=== PATIENT | female | born 1940 | race Caucasian/White ===

== ENCOUNTER 2025-05-24 10:09 | Inpatient (IN) | payer MEDICARE, OTHER, SELFPAY ==
[2025-05-22 14:05] VITALS: BP 136/100
[2025-05-22 15:00] VITALS: BP 130/87
--- NOTE | 2025-05-22 15:48 | ED.GENMED ---
History of Present Illness
General
Chief Complaint: Vascular Symptoms
Source: patient
Exam Limitations: none
Time Seen by Provider: 05/22/25 15:33
Nursing documentation reviewed up to this point in time: agreed with
History of Present Illness
History of Present Illness:
84-year-old female with a past medical history of multiple sclerosis (wheelchair-bound at baseline), hypertension, glaucoma who presents to the emergency department via EMS for evaluation of right lower extremity pain. Patient lives at [facility] in [place]; her son-in-law is a straight cutter at [facility] and when they referred her to the emergency room they requested transport to [facility] but she was erroneously taken to [facility]. I spoke with the staff at [facility]
and she had cursory evaluation (essentially physical exam and Doppler pulses were checked) there and was transported over to [facility] at patient and family request.
She presents today to the emergency room for evaluation of right lower extremity pain. History obtained from patient and EMS but also from her daughter as well as her son in law. Of note she does have chronic pain in her right knee as well as in
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 She recently has been dealing with muscle spasms and contractures in the right leg. There was a plan to do physical therapy to help
with this. She apparently started to develop some shallow ulcerations in the lower leg on the right and was having increasing pain over the past few days. Today was complaining of severe pain in the leg and it sounds like physician at her living
facility had difficulty finding a palpable pulse and so she was transported to have evaluation in the emergency room. She complains of pain in the knee and down into the lower leg. She describes a deep aching pain. No clear triggering or
relieving factors noted. Associated muscle spasms as described. She denies any other complaints including fever, chills, chest pain, shortness of breath. She has not noticed swelling in the legs. Review of her medication list shows no blood
thinners.
Review of Systems
Review of Systems
All Other Systems: ROS reviewed and negative except as documented in HPI and ROS
Constitutional: Denies fever
Respiratory: Denies trouble breathing
Cardiac: Denies chest pain
ABD/GI: Denies abdominal pain
: Denies flank pain
Musculoskeletal: Reports joint pain, muscle pain and muscle stiffness
Skin: Reports other (Wounds)
Neurological: Denies headache
Phy Exam
Physical Exam
Physical Exam:
General: Awake, alert, oriented x3; no acute distress
Head: Normocephalic, atraumatic
Eyes: Conjunctiva normal
Throat: Airway intact, handling secretions
Neck: Trachea midline
Lungs: Breathing comfortably with no distress
Heart: Regular rate
Abd: Soft, non distended, nontender
Skin: Patient has 2 shallow-based ulcerations 1 on anterior right lower leg and 1 on the calf in the right lower leg with no drainage or erythema, warmth, induration or other signs of acute infection
Extremities: No notable edema in the lower extremity specifically no edema in the right lower extremity; she does have weakly palpable pulses left lower extremity; on exam of the right lower extremity she has palpable femoral pulse, no palpable
DP/PT pulse but pulses are present by Doppler in the right lower extremity and the distal extremity is warm to the touch
Scores
Heart Failure Risk
Heart Failure Risk Score: Not Applicable
Heart Score for Chest Pain Patients
STEMI patient?: Not applicable
Withdrawal Assessment of Alcohol
Withdrawal Assessment Completed?: Not applicable
Course
Orders/Labs/Results
Orders:
Orders
05/22/25 15:47
CR Knee - Right 3 Views Urgent
Reason For Exam: right knee pain
05/22/25 15:52
US Periph Venous LOWER Ext RT Urgent
Comment:
Reason For Exam: RLE pain
US Vasc Ltd W JAMEEL Urgent
Reason For Exam: RLE pain
05/22/25 16:01
CPK [Creatine Phosphokinase] Urgent
Complete Blood Count/With Diff Urgent
Comprehensive Metabolic Panel Urgent
PTT Urgent
Prothrombin Time Urgent
05/22/25 19:00
Acetaminophen 1000MG/100Ml [Ofirmev] 1,000 mg in 100 ml IV ONCE
Acetaminophen IV Indication:: ED Narcotic Naive Pt-ONCE
Morphine Sulfate 4 mg IV NOW STA
Abnormal Lab Results
05/22/25
16:01
WBC 15.8 H 10^3/uL
(4.8-10.8)
RBC 3.68 L 10^6/uL
(4.20-5.40)
Hgb 10.8 L g/dL
(12.0-16.0)
Hct 33.4 L %
(37.0-47.0)
MCHC 32.3 L g/dL
(33.0-37.0)
Plt Count 460 H 10^3/uL
(130-400)
Abs Immat Gran (auto) 0.1 H 10^3/uL
(0-0.05)
Absolute Neuts (auto) 13.4 H 10^3/uL
(1.4-6.5)
Absolute Monos (auto) 0.9 H 10^3/uL
(0.1-0.6)
Immature Gran % 0.6 H %
(0-0.5)
Neutrophils % 85.2 H %
(42.2-75.2)
Lymphocytes % 8.2 L %
(20.5-51.1)
Chloride 110 H mmol/L
(98-107)
BUN 19 H mg/dl
(7-17)
Glucose 112 H mg/dl
(70-99)
Albumin 3.4 L g/dl
(3.5-5.0)
05/22/25 16:01
05/22/25 16:01
Vital Signs
Initial and Last Documented VS:
Initial Vital Signs
Temp Pulse Resp BP Pulse Ox
36.9 C 86 16 136/100 95
05/22/25 14:05 05/22/25 14:05 05/22/25 14:05 05/22/25 14:05 05/22/25 14:05
Last Documented Vital Signs
Temp Pulse Resp BP Pulse Ox
36.9 C 80 22 130/87 93
05/22/25 14:05 05/22/25 15:00 05/22/25 15:00 05/22/25 15:00 05/22/25 15:50
MDM/Problems Addressed
Differential Diagnosis Includes:
Claudication, DVT, arthritis, neuropathy
MDM/Problems Addressed:
84-year-old female presents for evaluation of acute on chronic pain in the right lower extremity as described above. Difficulty finding palpable pulse in the right lower extremity and worsening pain, new wounds, muscle spasms and contractures which
prompted ER referral. Vital signs and exam as above. Physical exam as above. She does not have palpable distal pulses in the right lower extremity but does have warm extremity and pulses are present by Doppler. Will plan to send labs including a
CBC and a CMP, coags, CPK. Check x-ray of the knee as she has much of her pain in the knee. Will check venous and arterial ultrasounds�discussed with vascular regarding approval for the studies. Reassess after the above.
Labs reviewed: CBC shows leukocytosis of 15.8 of unclear acute clinical significance. Mild anemia no prior for comparison. CMP no clinically significant abnormalities. CPK normal. DVT study was negative. On my independent review x-ray of the
knee shows no fracture, arthritis noted, vascular calcifications noted. Her arterial ultrasound shows moderately reduced JAMEEL with severely reduced TBI severely diseased SFA with multifocal stenosis. Case discussed with vascular surgery for
recommendations.
Case discussed with vascular�on review of imaging likely claudication could be medically managed rather than any surgical intervention planned. She is however having significant increased pain�will admit for consultation, symptom management.
Discussed with hospitalist.
Chronic conditions affecting care:
Hypertension, MS
*Radiology
Radiology exam reviewed: radiology read reviewed
*Pulse Oximetry
SaO2: 93
Oxygen Mode of Delivery: Room air
Patient hypoxic: no (93%)
*Critical Care Note
Total Time (30-74mins, 75-104mins- exclusive of procedures): Not Applicable
Data Reviewed
Review of Other/Old Records Reveals: Records ([facility] records)
Source: patient, records and ambulance crew
Patient Management
Discussion with other providers: Hospitalist (Discussed with hospitalist), Youth Specialist (Discussed with vascular surgery as well as radiologist) and Other (Discussed with staff at [facility])
Escalation/DeEscalation of care consider admission/obs:
Admission indicated
ED Attending Note
-
Portions of this chart may have been created with voice recognition software.� Occasional wrong word or��sound alike� substitutions may have occurred due to the inherent limitations of voice recognition software.
Discharge Plan
Departure
Prescriptions:
No Action
prednisone 5 mg Tablet
5 mg PO DAILY
losartan 25 mg Tablet
25 mg PO DAILY
duloxetine 40 mg Capsule,Delayed Release(Dr/Ec)
40 mg PO DAILY
latanoprost 0.005 % Drops
1 drp LEFT EYE HS
acetaminophen [Tylenol] 325 mg Tablet
650 mg PO Q4HPRN PRN (Reason: mild pain)
acetaminophen [Tylenol Extra Strength] 500 mg Tablet
1,000 mg PO HS
bisacodyl [Dulcolax (bisacodyl)] 10 mg Suppository
10 mg NM Q8HPRN PRN (Reason: constipation)
nystatin 100,000 unit/gram Cream
1 applic TOPICAL BID
lidocaine [Lidoderm] 5 % Adhesive Patch,Medicated
1 patch TOPICAL DAILY
brimonidine 0.2 % Drops
1 drp BOTH EYES BID
dorzolamide-timolol 22.3-6.8 mg/mL Drops
1 drp BOTH EYES BID
melatonin 1 mg Tablet
1 mg PO HSPRN PRN (Reason: sleep)
Santyl 250 unit/gram Ointment
1 applic TOPICAL QPM
cholecalciferol (vitamin D3) [Vitamin D3] 25 mcg (1,000 unit) Tablet
25 mcg PO DAILY
Referrals:
David Lira MD [Family Provider, Internal Medicine]
Interventions
Interventions:
*Risk Screen - Suicide Last Done: 05/22/25 14:05
*General Assessment Last Done: 05/22/25 14:05
*Neglect/Abuse Screening Last Done: 05/22/25 14:05
ED-Peripheral Vascular Assessment Last Done: 05/22/25 14:17
Discharge Date and Time
Print Language: ALBANIAN
[2025-05-22 16:09] LABS: Hematocrit 33.4 % (37.0-47.0); Hemoglobin 10.8 g/dL (12.0-16.0); Mean Corp Hgb Conc. 32.3 g/dL (33.0-37.0); Mean Corpuscular Volume 90.8 fL (81.0-99.0); Nucleated Red Blood Cells % 0 %; Platelet Count 460 10^3/uL (130-400); Red Cell Dist. Width 13.7 % (11.5-14.5)
[2025-05-22 16:17] LABS: APTT 26.5 Sec (23.4-35.0); INR 0.95; PT 13.0 Sec (11.4-14.6)
[2025-05-22 16:21] LABS: ALT (SGPT) 14 U/L (0-35); AST (SGOT) 17 U/L (14-36); Albumin 3.4 g/dl (3.5-5.0); Alkaline Phosphatase 91 U/L (38-126); Blood Urea Nitrogen 19 mg/dl (7-17); Calcium 9.4 mg/dl (8.4-10.2); Carbon Dioxide 24 mmol/L (22-30); Chloride 110 mmol/L (98-107); Glucose 112 mg/dl (70-99); Potassium 4.8 mmol/L (3.5-5.1); Sodium 137 mmol/L (135-145); Total Protein 6.4 g/dl (6.3-8.2); eGFR > 60.00
[2025-05-22] MEDS: OFIRMEV 100 IV (19:08)
--- NOTE | 2025-05-22 19:34 | HPS.HSE ---
Family Physician
-
Family Physician: David Lira
Chief Complaint
-
Right lower extremity pain
History of Present Illness
This is an 84-year-old female with past medical history significant for multiple sclerosis, hypertension, glaucoma who is wheelchair-bound at baseline presenting to the emergency department with right lower extremity pain.
Patient reports chronic pain in her right knee as well as in her right lower extremity in part due to arthritis and neuropathy in the setting of MS. She reports that she has been dealing with muscle spasms and contractures in the right leg. She
has also developed some shallow ulcerations in the lower right leg in the last few days.
She has been complaining of more severe pain in that leg and she has been evaluated by physicians at the living facility. They had difficulty finding a pulse on examination today and there were concern for claudication so patient was sent to the
emergency department for further evaluation. In the ED she had a pulse by Doppler in the right leg.
Patient herself complains of knee pain in the right knee. She feels that there is tenderness to palpation there. She has not noticed any redness or swelling. There is no insect bite.
In the emergency department she was afebrile, blood pressure 130/87 with a pulse of 80 and satting 93% on room air.
Awake and a 15.8 otherwise CBC was unremarkable. No prior CBC for comparison. Electrolytes were normal. BUN/creatinine were normal. Glucose was normal.
Ultrasound of the lower extremity was negative for DVT. X-ray was negative for any acute fracture or dislocation. She had a ankle brachial index evaluation which showed moderately reduced 0.59 in the right leg. With toe brachial index was
severely reduced at 0.18. Monophasic flow within the common femoral artery suggesting possible inflow disease. Severely diseased SFA with multifocal stenoses. There is a high-grade stenosis within the proximal SFA with velocities measuring 662 cm/s
(velocity ratio greater than 20) indicative of a greater than 75% stenosis. Additional focal stenosis appreciated within the popliteal artery. Diffusely dampened monophasic continuous flow within the SFA, popliteal, and tibial vessels.
Medical History
Past Medical History
Past Medical History: Reports HTN and Other (Multiple sclerosis, glaucoma)
Past Surgical History: Reports None
Social History
Tobacco: Non-smoker
Alcohol: None
Drug: None
Living: [facility] Living
Employment: Retired
Family History
Family History: Not pertinent
Allergies / Home Medications
Allergies reflects when Allergies were last updated in [employer].
Home Medications with original date entered in [employer]
Allergy/Medication List:
Allergies
Allergy/AdvReac Type Severity Reaction Status Date / Time
almond Allergy Unknown Verified 05/22/25 14:04
Sulfa (Sulfonamide Allergy Unknown Verified 05/22/25 14:04
Antibiotics)
Home Medications
acetaminophen 325 mg tablet (Tylenol) 650 mg PO Q4HPRN PRN mild pain 05/22/25
acetaminophen 500 mg tablet (Tylenol Extra Strength) 1,000 mg PO HS 05/22/25
bisacodyl 10 mg rectal suppository (Dulcolax (bisacodyl)) [address] Q8HPRN PRN constipation 05/22/25
brimonidine 0.2 % eye drops 1 drp BOTH EYES BID 05/22/25
cholecalciferol (vitamin D3) 25 mcg (1,000 unit) tablet (Vitamin D3) 25 mcg PO DAILY 05/22/25
collagenase clostridium histo. 250 unit/gram topical ointment (Santyl) 1 applic topical QPM right mata 05/22/25
dorzolamide 22.3 mg-timolol 6.8 mg/mL eye drops 1 drp BOTH EYES BID 05/22/25
duloxetine 40 mg capsule,delayed release 40 mg PO DAILY 05/22/25
latanoprost 0.005 % eye drops 1 drp LEFT EYE HS 05/22/25
lidocaine 5 % topical patch (Lidoderm) 1 patch topical DAILY right knee 05/22/25
losartan 25 mg tablet 25 mg PO DAILY 05/22/25
melatonin 1 mg tablet 1 mg PO HSPRN PRN sleep 05/22/25
nystatin 100,000 unit/gram topical cream 1 applic topical BID both feet 05/22/25
prednisone 5 mg tablet 5 mg PO DAILY 05/22/25
Review of Systems
-
History Source: Family
Constitutional: Reports No Symptoms
EENT: Reports No Symptoms
Respiratory: Reports No Symptoms
Cardiac: Reports No Symptoms
Abdomen/GI: Reports No Symptoms
: Reports No Symptoms
Musculoskeletal: Reports Other (Right lower extremity pain)
Skin: Reports No Symptoms
Neurological: Reports No Symptoms
Endocrine: Reports No Symptoms
Hematologic/Lymphatic: Reports No Symptoms
Psych: Reports No Symptoms
Physical Exam
Vital Signs
Vital Signs
Temp Pulse Resp BP Pulse Ox
98.4 F 80 22 130/87 93
05/22/25 14:05 05/22/25 15:00 05/22/25 15:00 05/22/25 15:00 05/22/25 15:50
Physical Exam
General: Well Developed, Well Nourished and No Apparent Distress
HEENT: NormoCephalic, Moist mucous membranes and Atraumatic
Respiratory: Clear
Cardiac: S1/S2 and Regular Rhythm; No Murmur or Rub
GI: Soft, Non Tender, Non Distended and Normal Bowel Sounds; No Organomegaly
Rectal: Deferred by Provider
Musculoskeletal: No Clubbing, No Cyanosis, No Edema and Other (, No effusion, no erythema over the right knee, there is mild tenderness to palpation, skin does seem exquisitely sensitive to touch, DP pulses by doppler in the right lower extremity,
normal palpable pulses in the left lower extremity)
Skin: No Rash
Neuro: Nonfocal/grossly intact
Psych: Calm
Laboratory Results
-
05/22/25 16:01
05/22/25 16:01
Laboratory Results
PT 13.0 Sec (11.4-14.6) 05/22/25 16:01
INR 0.95 05/22/25 16:
APTT 26.5 Sec (23.4-35.0) 05/22/25 16:01
Total Bilirubin 0.6 mg/dl (0.2-1.3) 05/22/25 16:
AST 17 U/L (14-36) 05/22/25 16:
ALT 14 U/L (0-35) 05/22/25 16:01
Alkaline Phosphatase 91 U/L (38-126) 05/22/25 16:
Data Reviewed
-
Ultrasound: Report Reviewed by me
Lab Data: Labs Reviewed by me
Old Records: Reviewed
Impression/Plan
-
IMPRESSION:
Right lower extremity pain which seems to be worse than baseline. It seems that she was brought into the emergency department today not due to the pain although that has been difficult to manage at home but due to inability to find pulses in the
right lower extremity with concern for claudication. However the pain that she is having is not consistent with claudication although vascular evaluation does show significant vascular disease that will likely need medical management. This case
was discussed with vascular surgery by ED and they had recommended no acute intervention.
PLAN:
RLE Ext/Knee pain - Suspect OA rather than claudication vs peripheral neuropathy. Despite leukocytosis (on prednisone), no evidence of joint fluid inflammatory/cellulitis
- admit to med/surg
- given morphine in Ed, will continue with acetaminophen, nsaids and low dose opioids
- topical lidocaine
- consider outpatient injection
- PT evaluation
PAD - Diagnosed PAD by TBI. Pulses are found by doppler. No ischemia on examination. Do not suspect claudication
- vascular consultation
- consider starting statin, cilostazol, asa 81
MS
- continue prednisone 5 daily
Continue home bp meds with losartan
DVT PPX - SCDs
Code status - DNR/DNI
[2025-05-22 20:36] LABS: C-Reactive Protein 26.50 mg/L (0.0-10.00)
[2025-05-22 21:27] VITALS: BP 139/61; BMI 20.2
[2025-05-22] MEDS: MOTRIN 400 MG PO (22:50)
[2025-05-22] MEDS: MYCOSTATIN CREAM 1 APPLIC TOPICAL (22:51)
[2025-05-22] MEDS: ALPHAGAN 0.2% EYE DROPS 1 DROP BOTH EYES (22:51)
[2025-05-22] MEDS: TIMOPTIC 0.5% OPHTHALMIC SOLUTION 1 DROP OPHTH (22:52)
[2025-05-22] MEDS: XALATAN OPHTHALMIC SOLUTION 1 DROP LEFT EYE (22:52)
[2025-05-22] MEDS: TRUSOPT 2% OPHTHALMIC SOLUTION 1 DROP BOTH EYES (22:53)
[2025-05-22 23:25] VITALS: BP 138/55
--- NOTE | 2025-05-23 04:55 | PTCARENOTE ---
patient arrived on stretcher, was not able to help for her transfer, complaint of pain in her lower extremities. Denies any other pain.
[2025-05-23] MEDS: TYLENOL PO ×3 (05:47→16:50)
[2025-05-23 06:26] LABS: Hematocrit 33.3 % (37.0-47.0); Hemoglobin 10.6 g/dL (12.0-16.0); Mean Corp Hgb Conc. 31.8 g/dL (33.0-37.0); Mean Corpuscular Volume 93.0 fL (81.0-99.0); Platelet Count 465 10^3/uL (130-400); Red Cell Dist. Width 13.8 % (11.5-14.5)
[2025-05-23 07:00] VITALS: BP 151/62
[2025-05-23 07:49] LABS: Blood Urea Nitrogen 21 mg/dl (7-17); Calcium 9.5 mg/dl (8.4-10.2); Carbon Dioxide 26 mmol/L (22-30); Chloride 109 mmol/L (98-107); Estimated Creatinine Clearance 35 ml/min; Glucose 90 mg/dl (70-99); HDL Cholesterol 70 mg/dl; LDL Cholesterol, Calculated 167 mg/dl; Magnesium 2.2 mg/dl (1.6-2.3); Potassium 4.3 mmol/L (3.5-5.1); Sodium 140 mmol/L (135-145); Very Low Density Lipoprotein 28 mg/dl (0-30); eGFR > 60.00
--- NOTE | 2025-05-23 09:42 | W.PN.HOSP.TC ---
Today's Communication/Plan
-
see outlined plan
Assessment / Plan
Assessment / Plan
Assessment:
RLE Ext/Knee pain
- suspect OA
- Xray: Moderate osteoarthritis in the medial compartment of the right knee. Mild to moderate flexion deformity of the knee.
- maximize Tylenol, Voltaren Gel, lidocaine patches. If requiring opiates, low doses
- consider low dose Tizanidine for spasms
- Orthopedics evaluation
- PT/OT - SNF
- may need outpatient injection
PAD
- JAMEEL: JAMEEL moderately reduced measuring 0.59. TBI severely reduced measuring 0.18. Monophasic flow within the common femoral artery suggesting possible inflow disease. Severely diseased SFA with multifocal stenoses. There is a high-grade stenosis
within the proximal SFA with velocities measuring 662 cm/s (velocity ratio greater than 20) indicative of a greater than 75% stenosis. Additional focal stenosis appreciated within the popliteal artery. Diffusely dampened monophasic continuous flow
within the SFA, popliteal, and tibial vessels.
- Vascular surgery consulted to evaluate
History of MS
- continue prednisone 5 daily
Essential HTN
- continue ARB
DVT ppx: SCDs
Code: DNR/DNI
Anticipated Discharge: > 48 hours
Subjective/Interval History
-
Date of Service: May 23, 2025
Reports RLE pain, leg in flexed position with two pillows for comfort
she reports occasional spasm/twitches near the knee, denies swelling or trauma
Objective Data
-
Labs:
Laboratory Results
05/23/25
05:49
WBC 18.2 H
Hgb 10.6 L
Hct 33.3 L
Plt Count 465 H
Sodium 140
Potassium 4.3
Chloride 109 H
Carbon Dioxide 26
BUN 21 H
Creatinine 0.9
Glucose 90
Calcium 9.5
Vital Signs:
Vital Signs
Temp Pulse Resp BP Pulse Ox
98.5 F 94 14 151/62 93
05/23/25 07:00 05/23/25 07:00 05/23/25 07:00 05/23/25 07:00 05/23/25 07:00
I&O
05/22/25 05/23/25 05/24/25
06:59 06:59 06:59
Output Total 100 / 100
Balance -100 / -100
Physical Exam
-
General: No Apparent Distress
HEENT: Normocephalic and Atraumatic
Respiratory: Clear to Auscultation; Negative Wheezes
Cardiac: Regular Rhythm and S1/S2
GI: Soft
Musculoskeletal: Other (No effusion, no erythema over the right knee, there is mild tenderness to palpation, skin does seem exquisitely sensitive to touch, DP pulses by doppler in the right lower extremity, normal palpable pulses in the left lower
extremity)
Neuro: AO x 3
Psych: Calm
Data Reviewed
-
Total Time Spent with Patient (in minutes): 45
Labs: Labs Reviewed by me
[2025-05-23] MEDS: LIDOCAINE 4% PATCH 1 PATCH TOPICAL (10:01)
[2025-05-23] MEDS: COZAAR 25 MG PO (10:01)
[2025-05-23] MEDS: VITAMIN D3 (cholecalciferol) 25 MCG PO (10:01)
[2025-05-23] MEDS: TYLENOL 650 MG PO ×2 (10:01→20:26)
[2025-05-23] MEDS: CYMBALTA DELAYED RELEASE 40 MG PO (10:02)
[2025-05-23] MEDS: DELTASONE 5 MG PO (10:02)
[2025-05-23] MEDS: MYCOSTATIN CREAM 1 APPLIC TOPICAL ×2 (10:03→20:25)
[2025-05-23] MEDS: ALPHAGAN 0.2% EYE DROPS 1 DROP BOTH EYES ×2 (10:04)
[2025-05-23] MEDS: TRUSOPT 2% OPHTHALMIC SOLUTION 1 DROP BOTH EYES ×2 (10:04→20:26)
[2025-05-23] MEDS: TIMOPTIC 0.5% OPHTHALMIC SOLUTION 1 DROP OPHTH ×2 (10:06→20:26)
--- NOTE | 2025-05-23 11:01 | CON.VAS ---
Addendum entered and electronically signed by Manuel Fish III, MD 05/25/25 20:18:
This patient was seen and examined in collaboration with SHARON Juan. I agree with the history and physical exam as well as the assessment and plan. I have the following additions:
84-year-old female with multiple medical comorbidities
Chronic right knee contracture
Right lateral heel ulcer with gangrene
Left heel ulcer
Arterial studies personally reviewed and are abnormal
CT angiogram personally reviewed
Recommending lower extremity arteriogram with possible endovascular intervention. Will discuss in more detail with family so that we can make a definitive plan. Continue antibiotics for infection. Monitor creatinine.
Signed:
Manuel Fish III, MD
Vascular Surgery
[facility]
Original Note:
Consultation
Consultation Request
Date/Time Consultation Performed: 05/23/2025 0800
Requesting Provider: Hospitalist
Performing Provider: Allison Valencia, EDM OPERATOR-C for Dr. Melendrez
Reason for Consultation: Bilateral heel wounds
Medical History
-
Chief Complaint: Bilateral heel wounds
History of Present Illness:
This is an 84-year-old female with significant past medical history of multiple sclerosis and glaucoma who presented to [facility] on 05/22/2025 with worsening bilateral lower extremity heel wounds and right lower extremity pain prompting
admission. Patient endorses wheelchair-bound status for at least roughly 2 years with worsening right knee and hip on right side contracture. Denies known rest pain or claudication. Patient is unaware how long the wounds have been present but
suspects at least a couple weeks. Patient endorses that her right knee is most painful at this time. Arterial duplex was obtained demonstrating TBI at 0.18 and high-grade SFA stenosis with monophasic flow.
Past Medical History
Past Medical History: Other (Multiple sclerosis and glaucoma)
Past Surgical History: None
Social History
Tobacco: Non-Smoker
Alcohol: None
Drug: None
Allergies / Home Medications
Allergy/AdvReac Type Severity Reaction Status Date / Time
almond Allergy Unknown Verified 05/22/25 14:04
Sulfa (Sulfonamide Allergy Unknown Verified 05/22/25 14:04
Antibiotics)
�Medication �Instructions �Recorded �Confirmed �Type
acetaminophen 325 mg tablet 650 mg PO Q4HPRN PRN mild pain 05/22/25 05/22/25 History
(Tylenol)
acetaminophen 500 mg tablet 1,000 mg PO HS 05/22/25 05/22/25 History
(Tylenol Extra Strength)
bisacodyl 10 mg rectal suppository 10 mg OK Q8HPRN PRN constipation 05/22/25 05/22/25 History
(Dulcolax (bisacodyl))
brimonidine 0.2 % eye drops 1 drp BOTH EYES BID 05/22/25 05/22/25 History
cholecalciferol (vitamin D3) 25 25 mcg PO DAILY 05/22/25 05/22/25 History
mcg (1,000 unit) tablet (Vitamin
D3)
collagenase clostridium histo. 250 1 applic topical QPM right mata 05/22/25 05/22/25 History
unit/gram topical ointment (Santyl)
dorzolamide 22.3 mg-timolol 6.8 1 drp BOTH EYES BID 05/22/25 05/22/25 History
mg/mL eye drops
duloxetine 40 mg capsule,delayed 40 mg PO DAILY 05/22/25 05/22/25 History
release
latanoprost 0.005 % eye drops 1 drp LEFT EYE HS 05/22/25 05/22/25 History
lidocaine 5 % topical patch 1 patch topical DAILY right knee 05/22/25 05/22/25 History
(Lidoderm)
losartan 25 mg tablet 25 mg PO DAILY 05/22/25 05/22/25 History
melatonin 1 mg tablet 1 mg PO HSPRN PRN sleep 05/22/25 05/22/25 History
nystatin 100,000 unit/gram topical 1 applic topical BID both feet 05/22/25 05/22/25 History
cream
prednisone 5 mg tablet 5 mg PO DAILY 05/22/25 05/22/25 History
Review of Systems
-
History Source: Patient
Constitutional: Reports No Symptoms
EENT: Reports No Symptoms
Respiratory: Reports No Symptoms
Cardiac: Reports No Symptoms
Abdomen/GI: Reports No Symptoms
: Reports No Symptoms
Musculoskeletal: Reports Muscle Pain (Right lower extremity knee pain and muscle spasms with light contraction)
Skin: Reports Other (Bilateral heel wounds)
Neurological: Reports No Symptoms
Physical Exam
Vital Signs
Temp Pulse Resp BP Pulse Ox
98.5 F 94 14 151/62 93
05/23/25 07:00 05/23/25 07:00 05/23/25 07:00 05/23/25 07:00 05/23/25 07:00
Lab Results
05/23/25 05:49
05/23/25 05:49
Physical Exam
General: No Apparent Distress
HEENT: Normocephalic and Atraumatic
Respiratory: Non Labored Respirations
Cardiac: Negative JVD
GI: Soft, Non Tender and Non Distended
Musculoskeletal: No Edema and Other (Patient with extensive hip and knee contracture on right side, currently in pain limiting positioning attempts or manipulation)
Skin: Other (Bilateral heel wounds, and superficial mata abrasion at right leg)
Neuro: Awake and Alert
Pulses: Left Femoral: +2 (Right femoral pulse palpable but weak, unable to palpate bilateral lower extremity DP or PT)
Assessment / Plan
-
Assessment: 84-year-old female with bilateral heel wounds, right worse than left, arterial duplex suggestive of peripheral arterial disease
Plan:
Patient will possibly benefit from right lower angiogram or could alternatively consider CT angio aorta with runoff for full evaluation of arterial disease. However, patient has challenging right hip and knee contracture currently with increased
pain and unclear if can manipulate for adequate CT angio aorta scan or angiogram. Recommend increased pain management regimen in an effort to see if patient can be positioned for angiogram or CT aorta with runoff. Will make patient n.p.o. Sunday
evening in case eligible candidate for angiogram, tentative plan for right lower extremity angiogram Sunday versus CT aorta angio with runoff given concern for inflow disease.
Plan relayed to hospitalist and family
Plan reviewed with on-call physician Dr. Melendrez
[2025-05-23] MEDS: DICLOFENAC 1% TOPICAL GEL 1 GRAM TOPICAL (12:15)
--- NOTE | 2025-05-23 13:05 | CM ---
senior case manager reviewed patient's chart and patient was admitted under observation, MARK letter provided to patient, patient reports that she lives at [facility], patient states she is mainly bedbound at nursing, does not remember
the last time she was out of bed, case management assistant will reach out to nursing at [facility] to check on activity level prior to admission.
PCP: David Lira
Pharmacy: [facility].
[2025-05-23 15:00] VITALS: BP 123/60
[2025-05-23] MEDS: DICLOFENAC 1% TOPICAL GEL 100 GRAM TOPICAL ×2 (18:26→20:27)
[2025-05-23] MEDS: SANTYL OINTMENT 1 APPLIC TOPICAL (18:27)
[2025-05-23] MEDS: REMOVE LIDOCAINE PATCH REMOVE (20:21)
[2025-05-23] MEDS: XALATAN OPHTHALMIC SOLUTION 1 DROP LEFT EYE (20:27)
[2025-05-23 23:30] VITALS: BP 119/46
[2025-05-24] MEDS: TYLENOL PO ×2 (00:40→04:23)
[2025-05-24 06:36] LABS: Hematocrit 30.9 % (37.0-47.0); Hemoglobin 10.2 g/dL (12.0-16.0); Mean Corp Hgb Conc. 33.0 g/dL (33.0-37.0); Mean Corpuscular Volume 90.4 fL (81.0-99.0); Platelet Count 399 10^3/uL (130-400); Red Cell Dist. Width 14.0 % (11.5-14.5)
[2025-05-24 06:55] LABS: Blood Urea Nitrogen 29 mg/dl (7-17); Calcium 9.1 mg/dl (8.4-10.2); Carbon Dioxide 21 mmol/L (22-30); Chloride 102 mmol/L (98-107); Estimated Creatinine Clearance 29 ml/min; Glucose 89 mg/dl (70-99); Potassium 4.4 mmol/L (3.5-5.1); Sodium 133 mmol/L (135-145); eGFR 48.94
[2025-05-24 07:00] VITALS: BP 112/45
[2025-05-24] MEDS: CYMBALTA DELAYED RELEASE 40 MG PO (09:54)
[2025-05-24] MEDS: LIDOCAINE 4% PATCH 1 PATCH TOPICAL (09:54)
[2025-05-24] MEDS: TRUSOPT 2% OPHTHALMIC SOLUTION 1 DROP BOTH EYES ×2 (09:55→23:29)
[2025-05-24] MEDS: TYLENOL 650 MG PO ×4 (09:55→22:23)
[2025-05-24] MEDS: ALPHAGAN 0.2% EYE DROPS 1 DROP BOTH EYES ×2 (09:55→23:29)
[2025-05-24] MEDS: DELTASONE 5 MG PO (09:55)
[2025-05-24] MEDS: COZAAR 25 MG PO (09:55)
[2025-05-24] MEDS: MYCOSTATIN CREAM 1 APPLIC TOPICAL ×2 (09:56→23:41)
[2025-05-24] MEDS: TIMOPTIC 0.5% OPHTHALMIC SOLUTION 1 DROP OPHTH ×2 (09:56→23:29)
[2025-05-24] MEDS: DICLOFENAC 1% TOPICAL GEL 1 GRAM TOPICAL ×3 (09:56→16:10)
[2025-05-24] MEDS: VITAMIN D3 (cholecalciferol) 25 MCG PO (09:57)
--- NOTE | 2025-05-24 09:59 | W.PN.HOSP.TC ---
Addendum entered and electronically signed by Jennie Holley MD 05/24/25 10:08:
Leukocytosis, rising
- despite being afebrile (on steroids) will panculture (UA, Bcx) and check CXR
Original Note:
Today's Communication/Plan
-
CT-A today
Assessment / Plan
Assessment / Plan
Assessment:
RLE Ext/Knee pain
- suspect OA
- Xray: Moderate osteoarthritis in the medial compartment of the right knee. Mild to moderate flexion deformity of the knee.
- maximize Tylenol, Voltaren Gel, lidocaine patches. If requiring opiates, low doses
- consider low dose Tizanidine for spasms
- Orthopedics evaluated; s/p steroid injection. Feeling improved
- PT/OT as able, may need SNF
PAD
- JAMEEL: JAMEEL moderately reduced measuring 0.59. TBI severely reduced measuring 0.18. Monophasic flow within the common femoral artery suggesting possible inflow disease. Severely diseased SFA with multifocal stenoses. There is a high-grade stenosis
within the proximal SFA with velocities measuring 662 cm/s (velocity ratio greater than 20) indicative of a greater than 75% stenosis. Additional focal stenosis appreciated within the popliteal artery. Diffusely dampened monophasic continuous flow
within the SFA, popliteal, and tibial vessels.
- Vascular following, CT-A pending
History of MS
- continue prednisone 5 daily
Essential HTN
- continue ARB
DVT ppx: SCDs
Code: DNR/DNI
Anticipated Discharge: > 48 hours
Subjective/Interval History
-
Date of Service: May 24, 2025
reports improvement in R knee pain after steroid injection
WBC 33 but no fevers, no focal infectious symptoms
for CT-A today
Objective Data
-
Labs:
Laboratory Results
05/24/25
05:24
WBC 33.5 H
Hgb 10.2 L
Hct 30.9 L
Plt Count 399
Sodium 133 L
Potassium 4.4
Chloride 102
Carbon Dioxide 21 L
BUN 29 H
Creatinine 1.1 H
Glucose 89
Calcium 9.1
Vital Signs:
Vital Signs
Temp Pulse Resp BP Pulse Ox
98.4 F 62 20 112/45 97
05/24/25 07:00 05/24/25 07:00 05/24/25 07:00 05/24/25 07:00 05/24/25 07:00
I&O
05/23/25 05/24/25 05/25/25
06:59 06:59 06:59
Output Total 100 / 100
Balance -100 / -100
Physical Exam
-
General: No Apparent Distress
HEENT: Normocephalic and Atraumatic
Respiratory: Negative Wheezes
Cardiac: Regular Rhythm and S1/S2
GI: Soft and Nontender
Genito-urinary: No Costovertebral Tender
Musculoskeletal: Other (contracted RLE/knee)
Neuro: AO x 3
Hematologic / Lymphatic: No Lymphadenopathy
Psych: Calm
Data Reviewed
-
Total Time Spent with Patient (in minutes): 41
Labs: Labs Reviewed by me
[2025-05-24 15:00] VITALS: BP 116/52
[2025-05-24] MEDS: SANTYL OINTMENT 1 APPLIC TOPICAL (16:12)
--- NOTE | 2025-05-24 21:35 | W.PN.UPDATE ---
Update Note
Progress Note Update
Abdomen CT result shows
1. SEVERE ACUTE CYSTITIS with a large amount of perivesical inflammation.
2. ACUTE RIGHT PYELONEPHRITIS.
3. Bilateral ascending urinary tract infection. Severe distention of the right ureter and moderate distention of the left ureter. Moderate distention of the right intrarenal collecting system and mild distention of the left intrarenal collecting
system.
4. Severely distended gallbladder containing cholelithiasis.
5. Mild hepatic cirrhosis.
6. Previous OMID-BSO.
7. Small bilateral subpleural lower lobe airspace consolidations (probably atelectasis).
8. Small central intraluminal filling defect in the right lower lobe pulmonary artery (possibly an ACUTE PULMONARY EMBOLUS).
ABDOMINAL AORTA:
1. Severe calcific atherosclerotic plaque in the abdominal aorta.
2. Greater than 70% diameter stenosis in the proximal celiac artery.
RIGHT LOWER EXTREMITY:
1. Severe atherosclerotic plaque throughout the right lower extremity.
2. Severe stenoses (greater than 70% diameter) in the proximal, mid, and distal right superficial femoral artery.
3. Severe stenosis (greater than 70% diameter) in the popliteal artery.
4. Severe stenoses (greater than 70% diameter) in the posterior tibial artery.
5. Three-vessel runoff to the level of the right foot.
LEFT LOWER EXTREMITY:
1. Severe atherosclerotic plaque throughout the left lower extremity.
2. 50-70% diameter stenoses in the left superficial femoral and popliteal arteries.
3. Severe calcific atherosclerotic plaque in the infrapopliteal arteries without evidence for arterial occlusion.
4. Three-vessel runoff to the level of the left foot.
Recommendation received by Attending Physician (Dr. Holley)
- Heparin drip
-Cefepime after UA/C&S collected.
-Urology consult was placed/urology recreation attendant contated and updated.
[2025-05-24] MEDS: PHATP 1 UNIT PO (22:30)
[2025-05-24 22:34] LABS: Hematocrit 31.6 % (37.0-47.0); Hemoglobin 10.5 g/dL (12.0-16.0); Mean Corp Hgb Conc. 33.2 g/dL (33.0-37.0); Mean Corpuscular Volume 89.5 fL (81.0-99.0); Platelet Count 384 10^3/uL (130-400); Red Cell Dist. Width 14.1 % (11.5-14.5)
[2025-05-24] MEDS: HEPARIN 25000 UNITS/250 ML IV (22:37)
[2025-05-24 22:45] LABS: APTT 32.9 Sec (23.4-35.0)
[2025-05-24 23:21] VITALS: BP 136/55
[2025-05-24] MEDS: REMOVE LIDOCAINE PATCH 1 PATCH REMOVE (23:23)
[2025-05-24] MEDS: MAXIPIME 1000 MG IV (23:25)
[2025-05-24] MEDS: STERILE WATER FOR INJECTION 10 ML IV (23:25)
[2025-05-24] MEDS: XALATAN OPHTHALMIC SOLUTION 1 DROP LEFT EYE (23:30)
[2025-05-24] MEDS: DICLOFENAC 1% TOPICAL GEL 100 GRAM TOPICAL (23:31)
[2025-05-25 00:08] LABS: Urine Character Cloudy (Clear)
[2025-05-25 00:33] LABS: Urine White Cell 80-90 /HPF (0-5)
[2025-05-25] MEDS: TYLENOL 650 MG PO ×3 (02:46→21:04)
[2025-05-25 05:09] LABS: Hematocrit 28.2 % (37.0-47.0); Hemoglobin 9.4 g/dL (12.0-16.0); Mean Corp Hgb Conc. 33.3 g/dL (33.0-37.0); Mean Corpuscular Volume 89.8 fL (81.0-99.0); Platelet Count 366 10^3/uL (130-400); Red Cell Dist. Width 13.9 % (11.5-14.5)
[2025-05-25 05:18] LABS: APTT 60.9 Sec (23.4-35.0)
[2025-05-25 05:33] LABS: Blood Urea Nitrogen 43 mg/dl (7-17); Calcium 9.1 mg/dl (8.4-10.2); Carbon Dioxide 22 mmol/L (22-30); Chloride 106 mmol/L (98-107); Estimated Creatinine Clearance 29 ml/min; Glucose 109 mg/dl (70-99); Potassium 4.2 mmol/L (3.5-5.1); Sodium 131 mmol/L (135-145); eGFR 48.94
[2025-05-25] MEDS: HEPARIN 4000 UNITS IV ×2 (05:39→21:18)
[2025-05-25 07:00] VITALS: BP 101/39
--- NOTE | 2025-05-25 08:12 | CONS.URO ---
Consultation
-
Date/Time Consultation Performed: 05/25/2025
Performing Provider: Wu
Reason for Consultation: Acute Pyelonephritis
Medical History
History of Present Illness
84 yo WC-bound female admitted vi ED with right leg pain.
reports no urologic hx
Past Medical History
Past Medical History: HTN and Other (MS, glaucoma)
Past Surgical History: None
Allergies/Home Medications
Allergies
Allergy/AdvReac Type Severity Reaction Status Date / Time
almond Allergy Unknown Verified 05/22/25 14:04
Sulfa (Sulfonamide Allergy Unknown Verified 05/22/25 14:04
Antibiotics)
Home Medications
�Medication �Instructions �Recorded �Confirmed �Type
acetaminophen 325 mg tablet 650 mg PO Q4HPRN PRN mild pain 05/22/25 05/22/25 History
(Tylenol)
acetaminophen 500 mg tablet 1,000 mg PO HS 05/22/25 05/22/25 History
(Tylenol Extra Strength)
bisacodyl 10 mg rectal suppository 10 mg IA Q8HPRN PRN constipation 05/22/25 05/22/25 History
(Dulcolax (bisacodyl))
brimonidine 0.2 % eye drops 1 drp BOTH EYES BID 05/22/25 05/22/25 History
cholecalciferol (vitamin D3) 25 25 mcg PO DAILY 05/22/25 05/22/25 History
mcg (1,000 unit) tablet (Vitamin
D3)
collagenase clostridium histo. 250 1 applic topical QPM right mata 05/22/25 05/22/25 History
unit/gram topical ointment (Santyl)
dorzolamide 22.3 mg-timolol 6.8 1 drp BOTH EYES BID 05/22/25 05/22/25 History
mg/mL eye drops
duloxetine 40 mg capsule,delayed 40 mg PO DAILY 05/22/25 05/22/25 History
release
latanoprost 0.005 % eye drops 1 drp LEFT EYE HS 05/22/25 05/22/25 History
lidocaine 5 % topical patch 1 patch topical DAILY right knee 05/22/25 05/22/25 History
(Lidoderm)
losartan 25 mg tablet 25 mg PO DAILY 05/22/25 05/22/25 History
melatonin 1 mg tablet 1 mg PO HSPRN PRN sleep 05/22/25 05/22/25 History
nystatin 100,000 unit/gram topical 1 applic topical BID both feet 05/22/25 05/22/25 History
cream
prednisone 5 mg tablet 5 mg PO DAILY 05/22/25 05/22/25 History
Physical Exam
Vital Signs
Vital Signs
Temp Pulse Resp BP Pulse Ox
98.3 F 85 18 101/39 93
05/25/25 07:00 05/25/25 07:00 05/25/25 07:00 05/25/25 07:00 05/25/25 07:00
Lab / Testing Results
Laboratory Results
05/25/25 05:00
05/25/25 05:00
Physical Exam
elderly female in bed
mentally acute
General: No Apparent Distress
Genito-urinary: Costovertebral Angle Tend (bilateral)
Psych: Calm
Assessment / Plan
-
Acute Pyelonephritis and Cystitis
Rec: ABx -- tailor per micro results; no indication for uro-surgical intervention
will sign off
Data Reviewed
-
CT Scan: Image personally visualized and interpreted
Lab Data: Labs Reviewed
Old Records: Reviewed
--- NOTE | 2025-05-25 09:47 | W.PN.HOSP.TC ---
Today's Communication/Plan
-
IVF
IV Cefepime
Assessment / Plan
Assessment / Plan
Physical Exam
-
General: No Apparent Distress
HEENT: Normocephalic and Atraumatic
Respiratory: Negative Wheezes
Cardiac: Regular Rhythm and S1/S2, + murmur
GI: Soft and Nontender
Genito-urinary: No Costovertebral Tender
Musculoskeletal: Other (contracted RLE/knee)
Neuro: AO to self and surroundings, followed commands.
Psych: Calm
Assessment:
RLE Ext/Knee pain
She complained of discomfort in both sides/ knee/heel/ankle
Advanced OA
- Xray: Moderate osteoarthritis in the medial compartment of the right knee. Mild to moderate flexion deformity of the knee.
- maximize Tylenol, Voltaren Gel, lidocaine patches. If requiring opiates, low doses
- Orthopedics evaluated; s/p steroid injection. Feeling improved
- PT/OT as able, may need SNF
PAD
- JAMEEL: JAMEEL moderately reduced measuring 0.59. TBI severely reduced measuring 0.18. Monophasic flow within the common femoral artery suggesting possible inflow disease. Severely diseased SFA with multifocal stenoses. There is a high-grade stenosis
within the proximal SFA with velocities measuring 662 cm/s (velocity ratio greater than 20) indicative of a greater than 75% stenosis. Additional focal stenosis appreciated within the popliteal artery. Diffusely dampened monophasic continuous flow
within the SFA, popliteal, and tibial vessels.
- Vascular following, CT-A pending
#Acute right pyelonephritis and cystitis
Leukocytosis,
Afebrile
CXR no infiltrates
CT of abdomen reviewed. CT showed Bilateral ascending urinary tract infection. Severe distention of the right ureter and moderate distention of the left ureter. Moderate distention of the right intrarenal collecting system and mild distention of the
left intrarenal collecting system. Seen by urology, no intervention, c/w ABx
c/w iV Cefepime, await urine and blood cultures
# Acute SHAILESH, mild
Hold Advil & Losartan
Give IVF
monitor renal function.
# Mild hyponatremia
History of MS
- continue prednisone 5 daily
Essential HTN
- continue ARB
DVT ppx: SCDs & Heparin
Code: DNR/DNI
Total time spent to see the patient on the floor, examine the patient, review data and lab results, discuss treatment plan with patient, nursing staff around 55 minutes.
Anticipated Discharge: > 48 hours
Subjective/Interval History
-
Date of Service: May 25, 2025
No chest pain
No sob
reports bilateral knee/ heel / ankle pain
Wants to eat, feels hungry
Objective Data
-
Labs:
Laboratory Results
05/24/25 05/25/25 05/25/25
22:19 05:00 11:40
WBC 27.1 H 25.0 H
Hgb 10.5 L 9.4 L
Hct 31.6 L 28.2 L
Plt Count 384 366
APTT 32.9 60.9 H Pending
Sodium 131 L
Potassium 4.2
Chloride 106
Carbon Dioxide 22
BUN 43 H
Creatinine 1.1 H
Glucose 109 H
Calcium 9.1
Vital Signs:
Vital Signs
Temp Pulse Resp BP Pulse Ox
98.3 F 85 18 101/39 93
05/25/25 07:00 05/25/25 07:00 05/25/25 07:00 05/25/25 07:00 05/25/25 07:00
I&O
05/24/25 05/25/25 05/26/25
06:59 06:59 06:59
Intake Total 540 / 540
Output Total 100 / 100 730 / 730
Balance -100 / -100 -190 / -190
[2025-05-25] MEDS: VITAMIN D3 (cholecalciferol) 25 MCG PO ×2 (11:18→11:26)
[2025-05-25] MEDS: CYMBALTA DELAYED RELEASE 40 MG PO (11:25)
[2025-05-25] MEDS: DELTASONE 5 MG PO (11:25)
[2025-05-25] MEDS: MAXIPIME 1000 MG IV ×2 (11:26→22:54)
[2025-05-25] MEDS: STERILE WATER FOR INJECTION 10 ML IV ×2 (11:26→22:55)
[2025-05-25] MEDS: LIDOCAINE 4% PATCH 1 PATCH TOPICAL (11:27)
[2025-05-25] MEDS: TRUSOPT 2% OPHTHALMIC SOLUTION 1 DROP BOTH EYES ×2 (11:28→22:48)
[2025-05-25] MEDS: TIMOPTIC 0.5% OPHTHALMIC SOLUTION 1 DROP OPHTH ×2 (11:28→22:48)
[2025-05-25] MEDS: XALATAN OPHTHALMIC SOLUTION 1 DROP LEFT EYE ×2 (11:29→22:48)
[2025-05-25] MEDS: MYCOSTATIN CREAM 1 APPLIC TOPICAL ×2 (11:33→22:54)
[2025-05-25] MEDS: ALPHAGAN 0.2% EYE DROPS 1 DROP BOTH EYES ×2 (11:33→22:47)
[2025-05-25] MEDS: COZAAR PO (11:37)
[2025-05-25] MEDS: DICLOFENAC 1% TOPICAL GEL 100 GRAM TOPICAL ×3 (11:38→22:50)
[2025-05-25 11:43] LABS: APTT 147.7 Sec (23.4-35.0)
[2025-05-25] MEDS: NSS 1000 IV (11:53)
--- NOTE | 2025-05-25 12:11 | WOUNDNOTE ---
[facility] RN note: Patient admitted with Heel wounds and pain R hip.
See H&P for complete history.
PMH:84-year-old female with a past medical history of multiple sclerosis (wheelchair-bound at baseline), hypertension, glaucoma who presents to the emergency department via EMS for evaluation of right lower extremity pain. [facility] in [place]
Wound Location and type/assessment: Patient admitted with: R lateral heel Arterial/unstageable PI, mostly covered with brown moist eschar, edges not attached. L heel with stage 2 vs healing stage 3 PI, base pink, periwound with zinc oxide and dry.
R mata with small wound, suspect abrasion, pink mixed with goodman slough. Non palpable pedal pulses, no edema, skin warm and dry. TBI on R leg 0.18, reviewed vascular note. Plan was for angiogram today but patient refusing, Allison Cook at bedside during
assessment and aware. Patient has contractures to hands but attempts to assist when turning. Incontinent of urine, nurse Mamie assisted with repositioning patient and skin care. Sacrum intact, chronic discoloration from suspected prolonged sitting in
wheelchair.
Appetite: Good.
Pressure redistribution devices in place: On versa care air bed, air cushion on pillow under calves. Called [employer] for offloading heel boots(TruVue lites) asked nurse Mamie to apply when arrives.
Plan: Dressings changed using foams. Recommend continue Santyl for all wounds, adaptic and dry dressing daily. Offloading as above. Teaching done with patient and nurse regarding plan. Patient agreeable but appears to be forgetful at times. Will
update discharge instructions.
Will confirm orders with hospitalist and updated nurse. Updated care plan and will follow as needed.
Note to case management of equipment requested for discharge: wound care.
Recommend follow up with vascular MD.
[2025-05-25 12:30] VITALS: BMI 20.2
[2025-05-25] MEDS: TYLENOL PO ×3 (13:18→18:07)
--- NOTE | 2025-05-25 13:54 | CM ---
Chart reviewed. Care ongoing at this time
Therapy rec HH at d/c. Patient resides at [facility]. Will watch for rehab needs as PT cont to follow
IV abx
IVF
Plan: Return to [facility] when stable
[2025-05-25 15:00] VITALS: BP 123/51
[2025-05-25] MEDS: DICLOFENAC 1% TOPICAL GEL TOPICAL (18:06)
[2025-05-25] MEDS: SANTYL OINTMENT 1 APPLIC TOPICAL (18:47)
[2025-05-25 21:05] LABS: APTT 50.5 Sec (23.4-35.0)
[2025-05-25] MEDS: REMOVE LIDOCAINE PATCH 1 PATCH REMOVE (22:50)
[2025-05-25 23:33] VITALS: BP 113/45
[2025-05-26] MEDS: HEPARIN 25000 UNITS/250 ML IV (00:22)
[2025-05-26] MEDS: NSS 1000 IV (00:24)
[2025-05-26] MEDS: TYLENOL PO ×2 (03:00→03:08)
[2025-05-26 03:31] LABS: Hematocrit 26.3 % (37.0-47.0); Hemoglobin 8.7 g/dL (12.0-16.0); Mean Corp Hgb Conc. 33.1 g/dL (33.0-37.0); Mean Corpuscular Volume 91.3 fL (81.0-99.0); Platelet Count 374 10^3/uL (130-400); Red Cell Dist. Width 13.6 % (11.5-14.5)
[2025-05-26 03:51] LABS: Blood Urea Nitrogen 34 mg/dl (7-17); Calcium 8.4 mg/dl (8.4-10.2); Carbon Dioxide 21 mmol/L (22-30); Chloride 111 mmol/L (98-107); Estimated Creatinine Clearance 35 ml/min; Glucose 83 mg/dl (70-99); Potassium 3.8 mmol/L (3.5-5.1); Sodium 135 mmol/L (135-145); eGFR > 60.00
[2025-05-26 03:56] LABS: APTT > 200.0 Sec (23.4-35.0)
--- NOTE | 2025-05-26 05:36 | DOWNTIME ---
There was a Sounds[employer] Client Cash Accounting Clerk Downtime on 05/26/2025 from 0100 to 05/26/2025 at 0220. Downtime documentation of patient's care, including medication administrations, has been reconciled in the electronic record per guidelines. Refer to the
patient's paper chart under the miscellaneous tab to see printed paper medication records and downtime forms.
[2025-05-26 07:30] VITALS: BP 151/51
[2025-05-26] MEDS: ALPHAGAN 0.2% EYE DROPS 1 DROP BOTH EYES ×2 (09:04→21:18)
[2025-05-26] MEDS: LIDOCAINE 4% PATCH 1 PATCH TOPICAL (09:05)
[2025-05-26] MEDS: DICLOFENAC 1% TOPICAL GEL 1 GRAM TOPICAL ×2 (09:05→12:58)
[2025-05-26] MEDS: CYMBALTA DELAYED RELEASE 40 MG PO (09:05)
[2025-05-26] MEDS: DELTASONE 5 MG PO (09:05)
[2025-05-26] MEDS: MYCOSTATIN CREAM 1 APPLIC TOPICAL ×2 (09:06→21:15)
[2025-05-26] MEDS: TYLENOL 650 MG PO ×4 (09:07→21:14)
[2025-05-26] MEDS: TIMOPTIC 0.5% OPHTHALMIC SOLUTION 1 DROP OPHTH ×2 (09:07→21:16)
[2025-05-26] MEDS: TRUSOPT 2% OPHTHALMIC SOLUTION 1 DROP BOTH EYES ×2 (09:07→21:17)
[2025-05-26] MEDS: VITAMIN D3 (cholecalciferol) 25 MCG PO (09:08)
[2025-05-26] MEDS: SANTYL OINTMENT 1 APPLIC TOPICAL (09:09)
[2025-05-26] MEDS: STERILE WATER FOR INJECTION 10 ML IV ×2 (09:11→21:15)
[2025-05-26] MEDS: MAXIPIME 1000 MG IV ×2 (09:11→21:15)
--- NOTE | 2025-05-26 09:12 | W.PN.HOSP.TC ---
Addendum entered and electronically signed by Jordyn Linn MD 05/26/25 13:38:
Addendum
Repeat H& H improved
will continue to monitor
Per wound care:
Stage 2 left medial heel pressure injury, POA
- Unstageable right lateral heel pressure injury, POA
End
Original Note:
Today's Communication/Plan
-
IV Cefepime
Will do rectal exam
IV heparin
Recheck H & H in afternoon
Assessment / Plan
Assessment / Plan
Physical Exam
-
General: No Apparent Distress
HEENT: Normocephalic and Atraumatic
Respiratory: Negative Wheezes
Cardiac: Regular Rhythm and S1/S2, + murmur
GI: Soft and Nontender
Genito-urinary: No Costovertebral Tender
Musculoskeletal: Other (contracted RLE/knee)
Neuro: AO to self and surroundings, followed commands.
Psych: Calm
Assessment:
RLE Ext/Knee pain
She complained of discomfort in both sides/ knee/heel/ankle
Advanced OA
- Xray: Moderate osteoarthritis in the medial compartment of the right knee. Mild to moderate flexion deformity of the knee.
- maximize Tylenol, Voltaren Gel, lidocaine patches. If requiring opiates, low doses
- Orthopedics evaluated; s/p steroid injection. Feeling improved
- PT/OT as able, may need SNF
# Possible PE
on IV heparin.
PAD
- JAMEEL: JAMEEL moderately reduced measuring 0.59. TBI severely reduced measuring 0.18. Monophasic flow within the common femoral artery suggesting possible inflow disease. Severely diseased SFA with multifocal stenoses. There is a high-grade stenosis
within the proximal SFA with velocities measuring 662 cm/s (velocity ratio greater than 20) indicative of a greater than 75% stenosis. Additional focal stenosis appreciated within the popliteal artery. Diffusely dampened monophasic continuous flow
within the SFA, popliteal, and tibial vessels.
Plan for lower extremity arteriogram with possible endovascular intervention 05/27.
#Acute right pyelonephritis and cystitis
Leukocytosis, WBC is coming down
Afebrile
CXR no infiltrates
CT of abdomen reviewed. CT showed Bilateral ascending urinary tract infection. Severe distention of the right ureter and moderate distention of the left ureter. Moderate distention of the right intrarenal collecting system and mild distention of the
left intrarenal collecting system. Seen by urology, no intervention, c/w ABx
c/w IV Cefepime, await urine and blood cultures
# Acute anemia
Combination of dilutional/ anemia of chronic disease and acute blood loss anemia ( blood in urine)
Will do rectal exam later today
Recheck H&H later this afternoon
# Acute SHAILESH, mild, resolved.
Held Advil & Losartan
Given IVF
monitor renal function.
# Mild hyponatremia
#History of MS
- continue prednisone 5 daily
#Essential HTN
- continue ARB
DVT ppx: SCDs & Heparin
Code: DNR/DNI
Total time spent to see the patient on the floor, examine the patient, review data and lab results, discuss treatment plan with patient, nursing staff around 55 minutes.
Anticipated Discharge: > 48 hours
Subjective/Interval History
-
Date of Service: May 26, 2025
No chest pain
No sob
Objective Data
-
Labs:
Laboratory Results
05/26/25 05/26/25
03:13 12:05
WBC 17.0 H
Hgb 8.7 L
Hct 26.3 L
Plt Count 374
APTT > 200.0 H* Pending
Sodium 135
Potassium 3.8
Chloride 111 H
Carbon Dioxide 21 L
BUN 34 H
Creatinine 0.9
Glucose 83
Calcium 8.4
Vital Signs:
Vital Signs
Temp Pulse Resp BP Pulse Ox
97.7 F 59 20 151/51 94
05/26/25 07:30 05/26/25 07:30 05/26/25 07:30 05/26/25 07:30 05/26/25 07:30
I&O
05/25/25 05/26/25 05/27/25
06:59 06:59 06:59
Intake Total 540 / 540 600 / 600
Output Total 730 / 730
Balance -190 / -190 600 / 600
[2025-05-26] MEDS: NSS IV (10:12)
--- NOTE | 2025-05-26 12:18 | W.PN.UPDATE ---
Addendum entered and electronically signed by Manuel Fish III, MD 05/26/25 14:13:
Correction: Angiogram 05/27/25 is bilateral lower extremity with left femoral access and focus the endo intervention on the right leg.
Original Note:
Update Note
Progress Note Update
Called patient's daughter Leisa
Explained my recommendations for lower extremity arteriogram with possible endovascular intervention. Technical aspects of the procedure were discussed with her in detail. The benefits and rationale for this approach were discussed with her in
detail. Operative risks were discussed with her in detail including but not limited to arterial access site injury, bleeding, infection, contrast nephropathy, distal embolization, limb loss and the inability to successfully complete an endovascular
intervention which may lead to additional procedures in the future. She expressed a clear understanding of our conversation and agrees to proceed with surgery as detailed above.
LLE a'gram 05/27/25 AM
Manuel Fish III, MD
Vascular Surgery
[facility]
[2025-05-26 12:53] LABS: Hemoglobin 9.0 g/dL (12.0-16.0)
[2025-05-26 13:06] LABS: APTT 82.8 Sec (23.4-35.0)
--- NOTE | 2025-05-26 13:28 | PN.CDI ---
CDI
- -
CDI:
Physician Documentation Request
Admit Date: 05/24/25 10:09
Dear Doctor Temitope,
Please review the following and provide your response in the progress notes.
Clinical Indicators:
- RN Skin assessments indicate:
- Stage 2 left medial heel pressure injury, POA
- Unstageable right lateral heel pressure injury, POA
Physician documentation of the type and location of wounds is required for compliant documentation. Based on the above clinical findings and your assessment, please provide the following in your progress note:
1. Location of the ulcer/wound, including laterality.
2. Type (etiology) of ulcer/wound:
- Diabetic ulcer
- Arterial (ischemic) ulcer
- Venous stasis ulcer
- Pressure (decubitus) ulcer
- Non-healing surgical wound
- Other
Use of terms such as suspected, likely, concern for, or probable (associated with a specific diagnosis that is being evaluated, monitored, or treated as if it exists) are acceptable and can be coded in the inpatient setting, when documented at the
time of discharge.
Thank you,
Cat Joseph RN
CDI Specialist
Please use your independent medical judgment in providing your response.
*Source: National Pressure Ulcer Advisory Panel (NPUAP)
[2025-05-26 15:22] VITALS: BP 127/68
[2025-05-26] MEDS: DICLOFENAC 1% TOPICAL GEL TOPICAL (17:01)
[2025-05-26 21:10] LABS: APTT 31.0 Sec (23.4-35.0)
[2025-05-26] MEDS: DICLOFENAC 1% TOPICAL GEL 100 GRAM TOPICAL (21:16)
[2025-05-26] MEDS: XALATAN OPHTHALMIC SOLUTION 1 DROP LEFT EYE (21:17)
[2025-05-26] MEDS: REMOVE LIDOCAINE PATCH 1 PATCH REMOVE (21:17)
[2025-05-26 23:27] VITALS: BP 127/56
[2025-05-27] VITALS (14 sets, daily range): BP systolic 101–175; BP diastolic 47–70
[2025-05-27] MEDS: TYLENOL PO ×3 (00:58→11:54)
--- NOTE | 2025-05-27 06:20 | PTCARENOTE ---
cleaning laborer called for patient. Report given. [facility] wipes completed. New gown on patient. cleaning laborer RN to come and transport patient down.
--- NOTE | 2025-05-27 07:20 | W.SUR.PREOP ---
Pre-Operative Surgical Note
-
I have examined this patient prior to the performance of the scheduled procedure.
The patient's condition is unchanged from the time of the current History and
Physical and the patient is able to undergo the scheduled procedure.
[2025-05-27 08:11] LABS: Hematocrit 27.4 % (37.0-47.0); Hemoglobin 8.8 g/dL (12.0-16.0); Mean Corp Hgb Conc. 32.1 g/dL (33.0-37.0); Mean Corpuscular Volume 92.6 fL (81.0-99.0); Platelet Count 381 10^3/uL (130-400); Red Cell Dist. Width 13.9 % (11.5-14.5)
[2025-05-27 08:16] LABS: INR 0.86; PT 12.2 Sec (11.4-14.6)
[2025-05-27 08:17] LABS: ACT-LR - POC 194 Seconds (116-155)
[2025-05-27 08:17] LABS: APTT 33.5 Sec (23.4-35.0)
[2025-05-27 08:25] LABS: ACT-LR - POC 244 Seconds (116-155)
[2025-05-27 08:38] LABS: Blood Urea Nitrogen 27 mg/dl (7-17); Calcium 8.7 mg/dl (8.4-10.2); Carbon Dioxide 24 mmol/L (22-30); Chloride 111 mmol/L (98-107); Estimated Creatinine Clearance 32 ml/min; Glucose 86 mg/dl (70-99); Potassium 3.8 mmol/L (3.5-5.1); Sodium 138 mmol/L (135-145); eGFR 54.87
--- NOTE | 2025-05-27 09:36 | W.PN.HOSP.TC ---
Today's Communication/Plan
-
Start amlodipine
iron panel
Assessment / Plan
Assessment / Plan
Physical Exam
-
General: No Apparent Distress
HEENT: Normocephalic and Atraumatic
Respiratory: Negative Wheezes
Cardiac: Regular Rhythm and S1/S2, + murmur
GI: Soft and Nontender
Genito-urinary: No Costovertebral Tender
Musculoskeletal: Other (contracted RLE/knee)
Neuro: AO to self and surroundings, followed commands.
Psych: Calm
Assessment:
RLE Ext/Knee pain
She complained of discomfort in both sides/ knee/heel/ankle
Advanced OA
- Xray: Moderate osteoarthritis in the medial compartment of the right knee. Mild to moderate flexion deformity of the knee.
- maximize Tylenol, Voltaren Gel, lidocaine patches. If requiring opiates, low doses
- Orthopedics evaluated; s/p steroid injection. Feeling improved
- PT/OT as able, may need SNF
# Possible PE
IV heparin on hold pending procedure.
PAD
- JAMEEL: JAMEEL moderately reduced measuring 0.59. TBI severely reduced measuring 0.18. Monophasic flow within the common femoral artery suggesting possible inflow disease. Severely diseased SFA with multifocal stenoses. There is a high-grade stenosis
within the proximal SFA with velocities measuring 662 cm/s (velocity ratio greater than 20) indicative of a greater than 75% stenosis. Additional focal stenosis appreciated within the popliteal artery. Diffusely dampened monophasic continuous flow
within the SFA, popliteal, and tibial vessels.
Plan for lower extremity arteriogram with possible endovascular intervention 05/27.
#Acute right pyelonephritis and cystitis
Leukocytosis, WBC is coming down
Afebrile
CXR no infiltrates
CT of abdomen reviewed. CT showed Bilateral ascending urinary tract infection. Severe distention of the right ureter and moderate distention of the left ureter. Moderate distention of the right intrarenal collecting system and mild distention of the
left intrarenal collecting system. Seen by urology, no intervention, c/w ABx
c/w IV Cefepime, a
Urine culture is staph
Blood culture NGTD
# Acute anemia
Combination of dilutional/ anemia of chronic disease and acute blood loss anemia ( blood in urine)
Negative rectal exam
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
Check iron panel
# Acute SHAILESH, mild, resolved.
Held Advil & Losartan
Given IVF
monitor renal function.
# Mild hyponatremia
#History of MS
- continue prednisone 5 daily
#Essential HTN
- Held ARB for SHAILESH/ procedure/ contrast
Start amlodipine, low dose
DVT ppx: SCDs & Heparin
Code: DNR/DNI
Total time spent to see the patient on the floor, examine the patient, review data and lab results, discuss treatment plan with patient, nursing staff around 55 minutes.
Anticipated Discharge: > 48 hours
Subjective/Interval History
-
Date of Service: May 27, 2025
No events over night
Objective Data
-
Labs:
Laboratory Results
05/27/25
06:39
WBC 15.1 H
Hgb 8.8 L
Hct 27.4 L
Plt Count 381
PT 12.2
INR 0.86
APTT 33.5
Sodium 138
Potassium 3.8
Chloride 111 H
Carbon Dioxide 24
BUN 27 H
Creatinine 1.0
Glucose 86
Calcium 8.7
Vital Signs:
Vital Signs
Temp Pulse Resp BP Pulse Ox
98.0 F 67 16 166/52 92
05/27/25 07:02 05/27/25 07:02 05/27/25 07:02 05/27/25 07:02 07/23/25 07:02
I&O
05/26/25 05/27/25 05/28/25
06:59 06:59 06:59
Intake Total 600 / 600 1370 / 1370
Balance 600 / 600 1370 / 1370
--- NOTE | 2025-05-27 09:38 | W.SUR.POST ---
Surgical Immediate Post Op
Note
Pre Op Diagnosis: Critical limb ischemia
Post Op Diagnosis: Critical limb ischemia
Procedure Performed: RLE angiogram. Intravascular lithotripsy of popliteal, tibio-peroneal trunk, peroneal artery with Javelin system, balloon dilation of peroneal and TPT trunk. Shockwave E8 lithotripsy of SFA popliteal followed by 4 x 60 mm DCB. 3
x 38 mm drug eluting scaffold system at TPT/peroneal, 6 mm x 140 Zilver PTX ANKIT in SFA.
Primary Surgeon: Manuel Fish III, MD
Secondary Surgeons: Marino Adams MD
Anesthesia: see anesthesia report
Estimated Blood Loss: 2 cc
Fluids: see anesthesia report
Drains/Shunts: none
Specimens/Cultures: none
Doppler/Duplex/Angio (Y/N): Y
Complications: none
Operative Findings: as above.
[2025-05-27] MEDS: PLAVIX 300 MG PO (10:46)
[2025-05-27] MEDS: ALPHAGAN 0.2% EYE DROPS BOTH EYES (11:51)
[2025-05-27] MEDS: LIDOCAINE 4% PATCH TOPICAL (11:52)
[2025-05-27] MEDS: DELTASONE PO (11:52)
[2025-05-27] MEDS: CYMBALTA DELAYED RELEASE PO (11:52)
[2025-05-27] MEDS: DICLOFENAC 1% TOPICAL GEL TOPICAL ×2 (11:52→16:10)
[2025-05-27] MEDS: MYCOSTATIN CREAM TOPICAL (11:53)
[2025-05-27] MEDS: SANTYL OINTMENT TOPICAL (11:53)
[2025-05-27] MEDS: TIMOPTIC 0.5% OPHTHALMIC SOLUTION OPHTH (11:53)
[2025-05-27] MEDS: TRUSOPT 2% OPHTHALMIC SOLUTION BOTH EYES (11:53)
[2025-05-27] MEDS: VITAMIN D3 (cholecalciferol) PO (11:55)
[2025-05-27] MEDS: NSS 1000 IV (12:01)
[2025-05-27] MEDS: NORVASC 5 MG PO (12:04)
[2025-05-27] MEDS: TYLENOL 650 MG PO ×3 (12:05→21:51)
[2025-05-27] MEDS: ASPIR LOW (ENTERIC COATED) 81 MG PO (12:06)
[2025-05-27] MEDS: MAXIPIME 1000 MG IV ×2 (12:13→21:57)
[2025-05-27] MEDS: STERILE WATER FOR INJECTION 10 ML IV ×2 (12:15→21:57)
--- NOTE | 2025-05-27 16:14 | OR.RPT ---
Operative Report
Operative Report
Date of Operation: 05/27/2025
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
Procedure:
1. Intravascular lithotripsy to right below-knee popliteal artery, tibioperoneal trunk and peroneal artery using Shockwave Javelin catheter
2. Intravascular lithotripsy to right superficial femoral artery and popliteal artery using 6 mm x 80 mm Shockwave E8
3. Balloon angioplasty of right peroneal artery (2.5 mm x 220 mm angioplasty balloon)
4. Balloon angioplasty of tibioperoneal trunk (3.5 mm x 60 mm angioplasty balloon)
5. Drug-eluting bioabsorbable scaffold stent placement to distal tibioperoneal trunk and proximal peroneal artery (3 mm x 38 mm Weston Esprit)
6. Drug-coated balloon angioplasty of below-knee popliteal artery (4 mm x 60 mm Lutonix drug-coated angioplasty balloon)
7. Balloon angioplasty and stenting of superficial femoral artery (6 mm x 140 mm Zilver PTX)
8. Diagnostic aortobiiliac arteriogram
9. Diagnostic right lower extremity arteriogram
10. Ultrasound-guided percutaneous access to the left common femoral artery
Surgeon: Manuel Fish III, MD
[employer] Superintendent: Marino Adams MD PGY-6
Anesthesia: Sedation with local
Fluoroscopy:
40 min
69 mGy
19.06 gy.cm2
Complications: None
Estimated Blood Loss: Less than 20 cc
History and Indications for Procedure: 84-year-old female with limb threatening ischemia manifested by nonhealing gangrenous right lateral heel ulcer.
Procedure in Detail: Jessica Meraz was correctly identified and placed supine on the operating table. After adequate induction of anesthesia the bilateral groins were prepped and draped in the usual sterile fashion. A timeout was performed with
the nursing and anesthesia staff confirming the patient's identity as well as the nature and laterality of the procedure.
The left common femoral artery was identified under ultrasound guidance. The artery was patent. The superior and inferior aspects of the femoral head were identified with radiographic guidance and marked at the skin level. The proposed puncture site
was infiltrated with local anesthesia. Under ultrasound guidance we accessed the left common femoral artery with a micropuncture needle and upsized to a 5 Fr sheath over a Novavax AB wire. The wire and a Shepherds hook flush catheter were advanced into
the distal abdominal aorta and a diagnostic aorto-biiliac arteriogram was performed:
AORTO-ILIAC ARTERIOGRAM:
Aorta: Patent with no significant stenosis identified
Right common iliac artery: Patent with no significant stenosis identified
Right external iliac artery: Patent with no significant stenosis identified
Left common iliac artery: Patent with no significant stenosis identified
Left external iliac artery: Patent with no significant stenosis identified
Under roadmap guidance using a Glidewire and the Shepherds hook catheter we selected the right common iliac artery and then the external iliac artery. A catheter was tracked up and over the aortic bifurcation and placed in the distal external iliac
artery. A diagnostic right lower extremity arteriogram was then performed which demonstrated the following:
RIGHT LOWER EXTREMITY:
Common femoral artery: Patent with no significant stenosis identified
Profunda femoral artery: Patent with no significant stenosis identified
Superficial femoral artery: Patent. Sluggish flow throughout. Multifocal high-grade stenosis scattered throughout the length of the SFA
Popliteal artery: Patent but small diameter and multifocal high-grade stenoses identified throughout
Anterior tibial artery: Patent. Scattered stenosis identified along the length of the anterior tibial artery. Crosses the ankle to form the dorsalis pedis artery
Tibioperoneal trunk: Patent with high-grade stenosis identified
Peroneal artery: Patent with scattered areas of high-grade stenosis identified throughout
Posterior tibial artery: Occluded with no distal reconstitution
Peroneal artery branches at the ankle appear to supply the lateral heel wound based on blushing of the arteriogram
ENDOVASCULAR INTERVENTION: Systemic heparin was administered. Exchanged out for a 6 Fr 45 cm sheath over a Health 123 wire. Selected the superficial femoral artery under roadmap guidance with a Quickcross and Glidewire. The superficial femoral artery and
popliteal artery disease was crossed with this approach. We then selected the tibioperoneal trunk and peroneal artery. The wire and catheter were advanced into the mid peroneal artery and subtraction angio confirmed proper position in the true
lumen. Exchanged out for a 0.014 wire. I focused on the distal disease first.
Due to the heavily calcified nature of the popliteal artery, tibioperoneal trunk and peroneal artery disease and in an effort to successfully cross the lesion, modify the calcium and achieve luminal gain with endovascular intervention I elected to
proceed with intravascular lithotripsy with a Shockwave Javelin catheter. The Javelin catheter was brought into position under radiographic guidance over the 0.014 wire. The Javelin catheter was advanced through the below-knee popliteal artery,
tibioperoneal trunk and peroneal artery while simultaneously delivering lithotripsy pulses. 120 pulses were delivered. Subsequent arteriogram demonstrated improvement with luminal gain. The peroneal artery was treated with a 2.5 mm x 220 mm
angioplasty balloon. The balloon was positioned in the desired location under roadmap guidance. The balloon was inflated to nominal pressure and held in place for 3 minutes. 2 separate inflations were performed in this manner to treat the entire
length of the peroneal artery from the ankle to the origin. The tibioperoneal trunk was treated with a 3.5 mm x 60 mm angioplasty balloon. The balloon was positioned in the desired location and inflated to nominal pressure for 3 minutes. A
residual stenosis at the distal TP trunk/proximal peroneal artery origin was treated with a 3 mm x 38 mm Weston Esprit bioabsorbable drug-eluting scaffold stent.
Due to the heavily calcified nature of the superficial femoral artery and popliteal artery disease and in an effort to modify the calcium to achieve maximum luminal gain with endovascular intervention I elected to proceed with intravascular
lithotripsy. A 6 mm x 80 mm Shockwave balloon was positioned in the popliteal artery under roadmap guidance. Alternating rounds of lithotripsy pulse delivery at sub-nominal pressure and angioplasty at nominal pressure was performed across the
stenosis. In between rounds of pulse delivery and angioplasty the balloon was deflated and repositioned under roadmap guidance. The popliteal artery and superficial femoral artery were treated. All 400 pulses were delivered.
Subsequent arteriogram demonstrated significant improvement in the appearance of the superficial femoral artery and popliteal artery however there was a dissection identified in the mid superficial femoral artery as well as in the distal below-knee
popliteal artery. The dissection in the distal popliteal artery below the knee was treated with a 4 mm x 60 mm Lutonix drug-coated angioplasty balloon with a 3-minute inflation at nominal pressure. The dissection in the superficial femoral artery
was treated with a 6 mm x 140 mm Zilver PTX stent and postdilated with a 5 mm angioplasty balloon.
COMPLETION ARTERIOGRAM: Excellent technical result. Widely patent superficial femoral artery. Patent superficial femoral artery stent with brisk flow and no significant residual stenosis identified. Patent popliteal artery with no significant
residual stenosis identified. Patent tibioperoneal trunk, peroneal artery and anterior tibial artery. Brisk flow through the tibial artery runoff with flow to the ankle wound identified. Overall significantly improved compared to pretreatment.
Satisfied with this result we concluded the procedure. The sheath tip was pulled back into the left external iliac artery. Protamine was administered. The sheath was pulled and direct manual pressure was held over the puncture site until
hemostasis was achieved..
The patient tolerated the procedure well and was taken to the recovery area in stable condition.
Attestation: I was present and responsible for the entire procedure.
Signed:
Manuel Fish III, MD
Vascular Surgery
[facility]
--- NOTE | 2025-05-27 16:18 | CM ---
Chart reviewed. Care ongoing at this time.
Post op RLE angiogram
Cont IV abx
PT will re evaluate when patient is able
Plan: Return to [facility]
[2025-05-27] MEDS: DICLOFENAC 1% TOPICAL GEL 100 GRAM TOPICAL ×2 (17:40→21:51)
[2025-05-27] MEDS: ULTRAM 50 MG PO (17:43)
[2025-05-27] MEDS: REMOVE LIDOCAINE PATCH 1 PATCH REMOVE (21:50)
[2025-05-27] MEDS: ALPHAGAN 0.2% EYE DROPS 1 DROP BOTH EYES (21:56)
[2025-05-27] MEDS: XALATAN OPHTHALMIC SOLUTION 1 DROP LEFT EYE (21:56)
[2025-05-27] MEDS: TRUSOPT 2% OPHTHALMIC SOLUTION 1 DROP BOTH EYES (21:56)
[2025-05-27] MEDS: TIMOPTIC 0.5% OPHTHALMIC SOLUTION 1 DROP OPHTH (21:56)
[2025-05-27] MEDS: MYCOSTATIN CREAM 1 APPLIC TOPICAL (21:57)
[2025-05-28] MEDS: TYLENOL PO ×2 (00:36→03:47)
[2025-05-28 07:00] VITALS: BP 168/59
--- NOTE | 2025-05-28 08:24 | W.PN.HOSP.TC ---
Today's Communication/Plan
-
Blood work
Change Tylenol to PRN
Assessment / Plan
Assessment / Plan
Physical Exam
-
General: No Apparent Distress
HEENT: Normocephalic and Atraumatic
Respiratory: Negative Wheezes
Cardiac: Regular Rhythm and S1/S2, + murmur
GI: Soft and Nontender
Genito-urinary: No Costovertebral Tender
Musculoskeletal: Other (contracted RLE/knee)
Neuro: AO to self and surroundings, followed commands.
Psych: Calm
Assessment:
RLE Ext/Knee pain
She complained of discomfort in both sides/ knee/heel/ankle
Advanced OA
- Xray: Moderate osteoarthritis in the medial compartment of the right knee. Mild to moderate flexion deformity of the knee.
- maximize Tylenol, Voltaren Gel, lidocaine patches. If requiring opiates, low doses
- Orthopedics evaluated; s/p steroid injection. Feeling improved
- PT/OT as able, may need SNF
#CT chest showed filing defect in the right lower lobe pulmonary artery seem by CT abdomen
I d/w radiologist. Cant rule out or in PE bu such findings. Absence of respiratory symptoms/ sob/ hypoxia
Currently pt is on dual anti-plt therapy which will good prophylaxis.
cant do CTA of chest as we are in process doing intense therapy to PAD with arteriogram to avoid renal injury. US done on right lower leg ( swelling) no DVT.
IV heparin or systemic AC not need for PAD problems.
# PAD
s/p lithotripsy, angioplasty, stent placement of right peripheral arterial disease by Dr. Fish. Currently patient is feeling much better with resolution of pain discomfort in heel area
Plan for further vascular intervention to the left lower extremity on May 29
#Acute right pyelonephritis and cystitis
Leukocytosis, WBC is coming down
Afebrile
CXR no infiltrates
CT of abdomen reviewed. CT showed Bilateral ascending urinary tract infection. Severe distention of the right ureter and moderate distention of the left ureter. Moderate distention of the right intrarenal collecting system and mild distention of the
left intrarenal collecting system. Seen by urology, no intervention, c/w ABx
c/w IV Cefepime, will keep until after Sunday vascular procedure.
Urine culture is staph
Blood culture NGTD
# Acute anemia
Combination of dilutional/ anemia of chronic disease and acute blood loss anemia ( blood in urine)
Negative rectal exam
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
Check iron panel
# Acute SHAILESH, mild, resolved.
Held Advil & Losartan
Given IVF
monitor renal function.
# Mild hyponatremia
#History of MS
- continue prednisone 5 daily
#Essential HTN
- Held ARB for SHAILESH/ procedure/ contrast
Start amlodipine, low dose
DVT ppx: SCDs & Heparin
Code: DNR/DNI
Total time spent to see the patient on the floor, examine the patient, review data and lab results, discuss treatment plan with patient, nursing staff around 55 minutes.
Anticipated Discharge: > 48 hours
Subjective/Interval History
-
Date of Service: May 28, 2025
Much less pain or discomfort in lower extremities
Objective Data
-
Labs:
Laboratory Results
05/28/25
07:09
WBC Pending
Hgb Pending
Hct Pending
Plt Count Pending
Sodium Pending
Potassium Pending
Chloride Pending
Carbon Dioxide Pending
BUN Pending
Creatinine Pending
Glucose Pending
Calcium Pending
Vital Signs:
Vital Signs
Temp Pulse Resp BP Pulse Ox
97.6 F 75 16 101/68 96
05/27/25 23:40 05/27/25 23:40 05/27/25 23:40 05/27/25 23:40 05/27/25 23:40
I&O
05/27/25 05/28/25 05/29/25
06:59 06:59 06:59
Intake Total 1370 / 1370 460 / 460
Output Total 600 / 600
Balance 1370 / 1370 -140 / -140
[2025-05-28 08:51] LABS: Hematocrit 27.4 % (37.0-47.0); Hemoglobin 8.8 g/dL (12.0-16.0); Mean Corp Hgb Conc. 32.1 g/dL (33.0-37.0); Mean Corpuscular Volume 93.5 fL (81.0-99.0); Platelet Count 356 10^3/uL (130-400); Red Cell Dist. Width 14.1 % (11.5-14.5)
[2025-05-28] MEDS: LIDOCAINE 4% PATCH 1 PATCH TOPICAL (08:59)
[2025-05-28] MEDS: DICLOFENAC 1% TOPICAL GEL 100 GRAM TOPICAL ×3 (09:01→22:00)
[2025-05-28] MEDS: SANTYL OINTMENT 1 APPLIC TOPICAL (09:02)
[2025-05-28] MEDS: CYMBALTA DELAYED RELEASE 40 MG PO (09:03)
[2025-05-28] MEDS: ASPIR LOW (ENTERIC COATED) 81 MG PO (09:03)
[2025-05-28] MEDS: TYLENOL 650 MG PO (09:04)
[2025-05-28] MEDS: VITAMIN D3 (cholecalciferol) 25 MCG PO (09:04)
[2025-05-28] MEDS: DELTASONE 5 MG PO (09:04)
[2025-05-28] MEDS: PLAVIX 75 MG PO (09:04)
[2025-05-28] MEDS: MYCOSTATIN CREAM 1 APPLIC TOPICAL ×2 (09:05→21:59)
[2025-05-28] MEDS: NORVASC 5 MG PO (09:05)
[2025-05-28] MEDS: TIMOPTIC 0.5% OPHTHALMIC SOLUTION 1 DROP OPHTH ×2 (09:17→21:59)
[2025-05-28] MEDS: XALATAN OPHTHALMIC SOLUTION 1 DROP LEFT EYE ×2 (09:22→21:59)
[2025-05-28 09:28] LABS: Blood Urea Nitrogen 25 mg/dl (7-17); Calcium 8.9 mg/dl (8.4-10.2); Carbon Dioxide 24 mmol/L (22-30); Chloride 110 mmol/L (98-107); Estimated Creatinine Clearance 35 ml/min; Glucose 110 mg/dl (70-99); Iron 59 ug/dl (37-170); Potassium 4.4 mmol/L (3.5-5.1); Sodium 138 mmol/L (135-145); eGFR > 60.00
[2025-05-28] MEDS: TRUSOPT 2% OPHTHALMIC SOLUTION 1 DROP BOTH EYES ×2 (09:29→21:59)
--- NOTE | 2025-05-28 09:31 | W.PN.VS ---
Today's Communication / Plan
-
Discussed with Dr. Fish
Assessment/Plan
-
POD 1
Intravascular lithotripsy to right below-knee popliteal artery, tibioperoneal trunk and peroneal artery using Shockwave Javelin catheter
Intravascular lithotripsy to right superficial femoral artery and popliteal artery using 6 mm x 80 mm Shockwave E8
Balloon angioplasty of right peroneal artery (2.5 mm x 220 mm angioplasty balloon)
Balloon angioplasty of tibioperoneal trunk (3.5 mm x 60 mm angioplasty balloon)
Drug-eluting bioabsorbable scaffold stent placement to distal tibioperoneal trunk and proximal peroneal artery (3 mm x 38 mm Weston Esprit)
Drug-coated balloon angioplasty of below-knee popliteal artery (4 mm x 60 mm Lutonix drug-coated angioplasty balloon)
Balloon angioplasty and stenting of superficial femoral artery (6 mm x 140 mm Zilver PTX)
Plan:
Groin site stable this a.m.
Continue DAPT
Plan for Agram on other side Sunday
Subjective Data
-
Date of Service: May 28, 2025
Patient seen at bedside this a.m. Patient offers no complaints at this time. No events overnight.
Objective Data
-
Vital Signs
Temp Pulse Resp BP Pulse Ox
97.6 F 75 16 101/68 96
05/27/25 23:40 05/27/25 23:40 05/27/25 23:40 05/27/25 23:40 05/27/25 23:40
Intake and Output
05/27/25 05/28/25 05/29/25
06:59 06:59 06:59
Intake Total 1370 / 1370 460 / 460
Output Total 600 / 600
Balance 1370 / 1370 -140 / -140
Intake:
Oral fluids 1370 / 1370 360 / 360
IV fluids (Total) 100 / 100
normsaline 100 / 100
Output:
Urine, Fish 600 / 600
Other:
Number of approximated MODERATE 2
amounts of urine
How many times incontinent 1 3
MODERATE amount urine
How many times incontinent 1
SATURATED amount urine
Lab Results
05/28/25 07:09
05/28/25 07:09
Calcium 8.9 mg/dl (8.4-10.2) 05/28/25 07:09
Magnesium 2.2 mg/dl (1.6-2.3) 05/23/25 05:49
Total Bilirubin 0.6 mg/dl (0.2-1.3) 05/22/25 16:01
AST 17 U/L (14-36) 05/22/25 16:01
ALT 14 U/L (0-35) 05/22/25 16:01
Alkaline Phosphatase 91 U/L (38-126) 05/22/25 16:01
Total Protein 6.4 g/dl (6.3-8.2) 05/22/25 16:01
Albumin 3.4 g/dl (3.5-5.0) L 05/22/25 16:01
Physical Exam
-
AAO x 3
No tachypnea on room air
No tachycardia
Abdomen soft
Left groin site clean, dry, intact, soft, flat
Bilateral feet warm and pink
[2025-05-28] MEDS: ALPHAGAN 0.2% EYE DROPS 1 DROP BOTH EYES ×2 (09:32→21:59)
[2025-05-28] MEDS: MAXIPIME 1000 MG IV (11:19)
[2025-05-28] MEDS: STERILE WATER FOR INJECTION 10 ML IV (11:19)
[2025-05-28] MEDS: ULTRAM 50 MG PO (13:00)
[2025-05-28] MEDS: DICLOFENAC 1% TOPICAL GEL 1 GRAM TOPICAL (16:12)
[2025-05-28] MEDS: REMOVE LIDOCAINE PATCH 1 PATCH REMOVE (22:00)
[2025-05-28 23:50] VITALS: BP 121/66
[2025-05-29 07:55] VITALS: BP 152/65
--- NOTE | 2025-05-29 08:01 | W.PN.HOSP.TC ---
Today's Communication/Plan
-
Vascular procedure planned for
Assessment / Plan
Assessment / Plan
Physical Exam
-
General: No Apparent Distress
HEENT: Normocephalic and Atraumatic
Respiratory: Negative Wheezes
Cardiac: Regular Rhythm and S1/S2, + murmur
GI: Soft and Nontender
Genito-urinary: No Costovertebral Tender
Musculoskeletal: Other (contracted RLE/knee)
Neuro: AO to self and surroundings, followed commands.
Psych: Calm
Assessment:
# PAD
s/p lithotripsy, angioplasty, stent placement of right peripheral arterial disease by Dr. Fish. Currently patient is feeling much better with resolution of pain discomfort in heel area
Plan for further vascular intervention to the left lower extremity on June 01
Appreciate vascular help
RLE Ext/Knee pain
She complained of discomfort in both sides/ knee/heel/ankle
Advanced OA
- Xray: Moderate osteoarthritis in the medial compartment of the right knee. Mild to moderate flexion deformity of the knee.
- maximize Tylenol, Voltaren Gel, lidocaine patches. If requiring opiates, low doses
- Orthopedics evaluated; s/p steroid injection. Feeling improved
- PT/OT as able, likely need SNF
#CT chest showed filing defect in the right lower lobe pulmonary artery seem by CT abdomen
I d/w radiologist. Cant rule out or in PE bu such findings. Absence of respiratory symptoms/ sob/ hypoxia
Currently pt is on dual anti-plt therapy which will good prophylaxis.
cant do CTA of chest as we are in process doing intense therapy to PAD with arteriogram to avoid renal injury. US done on right lower leg ( swelling) no DVT.
IV heparin or systemic AC not need for PAD problems.
#Acute right pyelonephritis and cystitis
Leukocytosis, WBC is still elevated, reactive
Afebrile
CXR no infiltrates
CT of abdomen reviewed. Seen by urology, no intervention, c/w ABx
s/p 3 days of IV Cefepime.
Urine culture is staph
Blood culture NGTD
# Acute anemia
Combination of dilutional/ anemia of chronic disease and acute blood loss anemia ( blood in urine)
Negative rectal exam
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
normal iron level.
# Acute SHAILESH, mild, resolved.
Held Advil & Losartan
Given IVF
monitor renal function.
# Mild hyponatremia
#History of MS
- continue prednisone 5 daily
#Essential HTN
- Held ARB for SHAILESH/ procedure/ contrast
Start amlodipine, low dose
DVT ppx: SCDs & Heparin
Code: DNR/DNI
Total time spent to see the patient on the floor, examine the patient, review data and lab results, discuss treatment plan with patient, nursing staff around 55 minutes.
Anticipated Discharge: > 48 hours
Subjective/Interval History
-
Date of Service: May 29, 2025
No chest pain
No sob
No pain in the legs
Objective Data
-
Vital Signs:
Vital Signs
Temp Pulse Resp BP Pulse Ox
97.0 F 81 16 121/66 95
05/28/25 23:50 05/28/25 23:50 05/28/25 23:50 05/28/25 23:50 05/28/25 23:50
I&O
05/28/25 05/29/25 05/30/25
06:59 06:59 06:59
Intake Total 460 / 460 780 / 780
Output Total 600 / 600
Balance -140 / -140 780 / 780
[2025-05-29] MEDS: VITAMIN D3 (cholecalciferol) 25 MCG PO (08:33)
[2025-05-29] MEDS: ASPIR LOW (ENTERIC COATED) 81 MG PO (08:33)
[2025-05-29] MEDS: CYMBALTA DELAYED RELEASE 40 MG PO (08:33)
[2025-05-29] MEDS: SANTYL OINTMENT 1 APPLIC TOPICAL (08:34)
[2025-05-29] MEDS: PLAVIX 75 MG PO (08:34)
[2025-05-29] MEDS: NORVASC 5 MG PO (08:34)
[2025-05-29] MEDS: LIDOCAINE 4% PATCH 1 PATCH TOPICAL (08:34)
[2025-05-29] MEDS: MYCOSTATIN CREAM 1 APPLIC TOPICAL ×2 (08:35→21:38)
[2025-05-29] MEDS: DELTASONE 5 MG PO (08:35)
[2025-05-29] MEDS: DICLOFENAC 1% TOPICAL GEL 100 GRAM TOPICAL ×3 (08:35→21:39)
[2025-05-29] MEDS: ALPHAGAN 0.2% EYE DROPS 1 DROP BOTH EYES ×2 (08:36→21:38)
[2025-05-29] MEDS: TIMOPTIC 0.5% OPHTHALMIC SOLUTION 1 DROP OPHTH ×2 (08:37→21:39)
[2025-05-29] MEDS: TRUSOPT 2% OPHTHALMIC SOLUTION 1 DROP BOTH EYES ×2 (08:37→21:39)
[2025-05-29] MEDS: DICLOFENAC 1% TOPICAL GEL 1 GRAM TOPICAL (12:31)
--- NOTE | 2025-05-29 14:12 | CM ---
Patient seen at bedside
Vascular procedure planned for
Referral in [facility] for [facility]
PLAN: [facility] when medically stable
[2025-05-29 14:40] VITALS: BP 154/65; PULSE 66; O2SAT 95
[2025-05-29 15:59] VITALS: BP 161/64
[2025-05-29] MEDS: REMOVE LIDOCAINE PATCH 1 PATCH REMOVE (21:41)
[2025-05-29 23:55] VITALS: BP 112/46
[2025-05-30 07:12] VITALS: BP 147/86
[2025-05-30] MEDS: ASPIR LOW (ENTERIC COATED) 81 MG PO (08:14)
[2025-05-30] MEDS: VITAMIN D3 (cholecalciferol) 25 MCG PO (08:14)
[2025-05-30] MEDS: CYMBALTA DELAYED RELEASE 40 MG PO (08:14)
[2025-05-30] MEDS: ALPHAGAN 0.2% EYE DROPS 1 DROP BOTH EYES ×2 (08:15→21:45)
[2025-05-30] MEDS: TRUSOPT 2% OPHTHALMIC SOLUTION 1 DROP BOTH EYES ×2 (08:15→21:45)
[2025-05-30] MEDS: NORVASC 5 MG PO (08:15)
[2025-05-30] MEDS: PLAVIX 75 MG PO (08:15)
[2025-05-30] MEDS: TIMOPTIC 0.5% OPHTHALMIC SOLUTION 1 DROP OPHTH ×2 (08:16→21:45)
[2025-05-30] MEDS: DELTASONE 5 MG PO (08:17)
[2025-05-30] MEDS: DICLOFENAC 1% TOPICAL GEL TOPICAL ×2 (08:22→14:06)
[2025-05-30] MEDS: LIDOCAINE 4% PATCH TOPICAL (08:23)
[2025-05-30] MEDS: MYCOSTATIN CREAM 1 APPLIC TOPICAL ×2 (08:23→21:46)
[2025-05-30] MEDS: TYLENOL PO (08:49)
[2025-05-30] MEDS: SANTYL OINTMENT 1 APPLIC TOPICAL (08:51)
--- NOTE | 2025-05-30 08:54 | W.PN.HOSP.TC ---
Today's Communication/Plan
-
OA pain in her knees, place her back on Tylenol ATC
Assessment / Plan
Assessment / Plan
Physical Exam
-
General: No Apparent Distress
HEENT: Normocephalic and Atraumatic
Respiratory: Negative Wheezes
Cardiac: Regular Rhythm and S1/S2, + murmur
GI: Soft and Nontender
Genito-urinary: No Costovertebral Tender
Musculoskeletal: Other (contracted RLE/knee)
Neuro: AO to self and surroundings, followed commands.
Psych: Calm
Assessment:
# PAD
s/p lithotripsy, angioplasty, stent placement of right peripheral arterial disease by Dr. Fish. Currently patient is feeling much better with resolution of pain discomfort in heel area
Plan for further vascular intervention to the left lower extremity on June 01
Appreciate vascular help
RLE Ext/Knee pain
She complained of discomfort in both sides/ knee/heel/ankle
Advanced OA
- Xray: Moderate osteoarthritis in the medial compartment of the right knee. Mild to moderate flexion deformity of the knee.
- pain control
- Orthopedics evaluated; s/p steroid injection. Feeling improved
- PT/OT as able, likely need SNF
#CT chest showed filing defect in the right lower lobe pulmonary artery seem by CT abdomen
I d/w radiologist. Cant rule out or in PE bu such findings. Absence of respiratory symptoms/ sob/ hypoxia
Currently pt is on dual anti-plt therapy which will good prophylaxis.
cant do CTA of chest as we are in process doing intense therapy to PAD with arteriogram to avoid renal injury. US done on right lower leg ( swelling) no DVT.
IV heparin or systemic AC not need for PAD problems.
#Acute right pyelonephritis and cystitis
Leukocytosis, WBC is still elevated, reactive
Afebrile
CXR no infiltrates
CT of abdomen reviewed. Seen by urology, no intervention, c/w ABx
s/p 3 days of IV Cefepime.
Urine culture is staph
Blood culture NGTD
# Acute anemia
Combination of dilutional/ anemia of chronic disease and acute blood loss anemia ( blood in urine)
Negative rectal exam
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
normal iron level.
# Acute SHAILESH, mild, resolved.
Held Advil & Losartan
Given IVF
monitor renal function.
# Mild hyponatremia
#History of MS
- continue prednisone 5 daily
#Essential HTN
- Held ARB for SHAILESH/ procedure/ contrast
Start amlodipine, low dose
DVT ppx: SCDs & Heparin
Code: DNR/DNI
Total time spent to see the patient on the floor, examine the patient, review data and lab results, discuss treatment plan with patient, nursing staff around 55 minutes.
Anticipated Discharge: > 48 hours
Subjective/Interval History
-
Date of Service: May 30, 2025
Objective Data
-
Vital Signs:
Vital Signs
Temp Pulse Resp BP Pulse Ox
98.3 F 70 18 147/86 95
05/30/25 07:12 05/30/25 07:12 05/30/25 07:12 05/30/25 07:12 05/30/25 07:12
I&O
05/29/25 05/30/25 05/31/25
06:59 06:59 06:59
Intake Total 780 / 780 720 / 720
Balance 780 / 780 720 / 720
[2025-05-30] MEDS: TYLENOL 1000 MG PO ×3 (10:10→21:46)
[2025-05-30] MEDS: LIDOCAINE 4% PATCH 1 PATCH TOPICAL (10:10)
[2025-05-30] MEDS: DICLOFENAC 1% TOPICAL GEL 100 GRAM TOPICAL ×3 (10:10→21:46)
[2025-05-30] MEDS: ULTRAM 50 MG PO ×2 (11:32→17:27)
[2025-05-30 15:39] VITALS: BP 132/60
[2025-05-30] MEDS: REMOVE LIDOCAINE PATCH 1 PATCH REMOVE (21:48)
[2025-05-30 23:35] VITALS: BP 118/55
[2025-05-31 08:00] VITALS: BP 140/48
[2025-05-31] MEDS: TIMOPTIC 0.5% OPHTHALMIC SOLUTION 1 DROP OPHTH ×2 (08:24→19:46)
[2025-05-31] MEDS: TRUSOPT 2% OPHTHALMIC SOLUTION 1 DROP BOTH EYES ×2 (08:25→19:46)
[2025-05-31] MEDS: ALPHAGAN 0.2% EYE DROPS 1 DROP BOTH EYES ×2 (08:25→19:46)
[2025-05-31] MEDS: ASPIR LOW (ENTERIC COATED) 81 MG PO (08:26)
[2025-05-31] MEDS: CYMBALTA DELAYED RELEASE 40 MG PO (08:26)
[2025-05-31] MEDS: PLAVIX 75 MG PO (08:27)
[2025-05-31] MEDS: NORVASC 5 MG PO (08:27)
[2025-05-31] MEDS: TYLENOL 1000 MG PO ×3 (08:27→21:31)
[2025-05-31] MEDS: VITAMIN D3 (cholecalciferol) 25 MCG PO (08:27)
[2025-05-31] MEDS: MYCOSTATIN CREAM 1 APPLIC TOPICAL ×2 (08:28→19:47)
[2025-05-31] MEDS: SANTYL OINTMENT 1 APPLIC TOPICAL (08:28)
[2025-05-31] MEDS: LIDOCAINE 4% PATCH 1 PATCH TOPICAL (08:29)
[2025-05-31] MEDS: DELTASONE 5 MG PO (08:29)
[2025-05-31] MEDS: DICLOFENAC 1% TOPICAL GEL 100 GRAM TOPICAL ×2 (08:29→21:31)
--- NOTE | 2025-05-31 08:57 | W.PN.HOSP.TC ---
Today's Communication/Plan
-
BMP & CBC in AM
NPO Past MN
Assessment / Plan
Assessment / Plan
Physical Exam
-
General: No Apparent Distress
HEENT: Normocephalic and Atraumatic
Respiratory: Negative Wheezes
Cardiac: Regular Rhythm and S1/S2, + murmur
GI: Soft and Nontender
Genito-urinary: No Costovertebral Tender
Musculoskeletal: Other (contracted RLE/knee)
Neuro: AO to self and surroundings, followed commands.
Psych: Calm
Assessment/ plan:
# PAD
s/p lithotripsy, angioplasty, stent placement of right peripheral arterial disease by Dr. Fish. Currently patient is feeling much better with resolution of pain discomfort in heel area
Plan for further vascular intervention to the left lower extremity on June 01
Appreciate vascular help
RLE Ext/Knee pain
She complained of discomfort in both sides/ knee/heel/ankle
Advanced OA
- Xray: Moderate osteoarthritis in the medial compartment of the right knee. Mild to moderate flexion deformity of the knee.
- pain control
- Orthopedics evaluated; s/p steroid injection. Feeling improved
- PT/OT as able, likely need SNF
#CT chest showed filing defect in the right lower lobe pulmonary artery seem by CT abdomen
I d/w radiologist. Cant rule out or in PE bu such findings. Absence of respiratory symptoms/ sob/ hypoxia
Currently pt is on dual anti-plt therapy which will good prophylaxis.
cant do CTA of chest as we are in process doing intense therapy to PAD with arteriogram to avoid renal injury. US done on right lower leg ( swelling) no DVT.
IV heparin or systemic AC not need for PAD problems.
#Acute right pyelonephritis and cystitis
Leukocytosis, WBC is still elevated, reactive
Afebrile
CXR no infiltrates
CT of abdomen reviewed. Seen by urology, no intervention, c/w ABx
s/p 3 days of IV Cefepime.
Urine culture is staph
Blood culture NGTD
# Acute anemia
Combination of dilutional/ anemia of chronic disease and acute blood loss anemia ( blood in urine)
Negative rectal exam
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
normal iron level.
# Acute SHAILESH, mild, resolved.
Held Advil & Losartan
Given IVF
monitor renal function.
# Mild hyponatremia
#History of MS
- continue prednisone 5 daily
#Essential HTN
- Held ARB for SHAILESH/ procedure/ contrast
Start amlodipine, low dose
DVT ppx: SCDs & Heparin
Code: DNR/DNI
Total time spent to see the patient on the floor, examine the patient, review data and lab results, discuss treatment plan with patient, nursing staff around 55 minutes.
Anticipated Discharge: > 48 hours
Subjective/Interval History
-
Date of Service: May 31, 2025
No sob
No chest pain
No fevers
Objective Data
-
Vital Signs:
Vital Signs
Temp Pulse Resp BP Pulse Ox
98.0 F 61 14 140/48 94
05/31/25 08:00 05/31/25 08:00 05/31/25 08:00 05/31/25 08:00 05/31/25 08:00
I&O
05/30/25 05/31/25 06/01/25
06:59 06:59 06:59
Intake Total 720 / 720 1080 / 1080
Balance 720 / 720 1080 / 1080
[2025-05-31] MEDS: DICLOFENAC 1% TOPICAL GEL 1 GRAM TOPICAL ×2 (14:00→17:45)
[2025-05-31 16:11] VITALS: BP 117/66
[2025-05-31] MEDS: REMOVE LIDOCAINE PATCH 1 PATCH REMOVE (19:47)
[2025-05-31] MEDS: XALATAN OPHTHALMIC SOLUTION 1 DROP LEFT EYE (21:32)
[2025-05-31 23:10] VITALS: BP 109/56
[2025-06-01 07:43] VITALS: BP 152/54
[2025-06-01 08:06] LABS: Hematocrit 33.7 % (37.0-47.0); Hemoglobin 11.0 g/dL (12.0-16.0); Mean Corp Hgb Conc. 32.6 g/dL (33.0-37.0); Mean Corpuscular Volume 91.6 fL (81.0-99.0); Platelet Count 678 10^3/uL (130-400); Red Cell Dist. Width 14.5 % (11.5-14.5)
[2025-06-01] MEDS: ASPIR LOW (ENTERIC COATED) 81 MG PO (08:25)
[2025-06-01] MEDS: CYMBALTA DELAYED RELEASE 40 MG PO (08:25)
[2025-06-01] MEDS: PLAVIX 75 MG PO (08:25)
[2025-06-01] MEDS: NORVASC 5 MG PO (08:25)
[2025-06-01] MEDS: TYLENOL 1000 MG PO ×3 (08:25→21:56)
[2025-06-01] MEDS: DELTASONE 5 MG PO (08:29)
[2025-06-01] MEDS: LIDOCAINE 4% PATCH 1 PATCH TOPICAL (08:31)
[2025-06-01] MEDS: DICLOFENAC 1% TOPICAL GEL 1 GRAM TOPICAL ×2 (08:31→12:25)
[2025-06-01] MEDS: TRUSOPT 2% OPHTHALMIC SOLUTION 1 DROP BOTH EYES ×2 (08:32→19:43)
[2025-06-01] MEDS: ALPHAGAN 0.2% EYE DROPS 1 DROP BOTH EYES ×2 (08:32→19:43)
[2025-06-01] MEDS: MYCOSTATIN CREAM 1 APPLIC TOPICAL ×2 (08:32→19:44)
[2025-06-01] MEDS: TIMOPTIC 0.5% OPHTHALMIC SOLUTION 1 DROP OPHTH ×2 (08:32→19:43)
[2025-06-01] MEDS: SANTYL OINTMENT 1 APPLIC TOPICAL (08:33)
[2025-06-01] MEDS: VITAMIN D3 (cholecalciferol) 25 MCG PO (08:33)
[2025-06-01 11:05] LABS: Blood Urea Nitrogen 31 mg/dl (7-17); Calcium 9.4 mg/dl (8.4-10.2); Carbon Dioxide 26 mmol/L (22-30); Chloride 106 mmol/L (98-107); Estimated Creatinine Clearance 35 ml/min; Glucose 107 mg/dl (70-99); Potassium 4.8 mmol/L (3.5-5.1); Sodium 136 mmol/L (135-145); eGFR > 60.00
--- NOTE | 2025-06-01 11:08 | CM ---
Chart reviewed. Care ongoing at this time
Update from hospitalist- patient for left leg angiogram procedure today. Can return to [facility] SNF possibly mid next week
PT following, last recommendation is for
Plan: Return to [facility] when medically stable
--- NOTE | 2025-06-01 12:20 | W.PN.UPDATE ---
Update Note
Progress Note Update
Due to emergent add ons, patient's case would be delayed until suspected evening hours today. Offered to daughter (patient's primary contact) to move patient to tomorrow for earlier time and less time NPO. Daughter agreeable to that plan. Will
change patient's diet to regular for today and NPO at midnight for LLE angio tomorrow (06/02/2025). Updated RN and hospitalist via TT who agree with plan. Attending Dr. Manuel Fish III also in agreement to plan.
--- NOTE | 2025-06-01 14:24 | W.PN.HOSP.TC ---
Today's Communication/Plan
-
LLE angiogram 06/02
Assessment / Plan
Assessment / Plan
Assessment:
bilateral PAD
- s/p lithotripsy, angioplasty, stent placement of right peripheral arterial disease 06/01
- for LLE angiogram 06/02
- continue ASA/Plavix
- follow Vascular surgery recs
RLE Ext/Knee pain
She complained of discomfort in both sides/knee/heel/ankle
Advanced OA
- Xray: Moderate osteoarthritis in the medial compartment of the right knee. Mild to moderate flexion deformity of the knee.
- pain control
- Orthopedics evaluated; s/p steroid injection. Feeling improved
- PT/OT as able, likely need SNF
CT chest showed filing defect in the right lower lobe pulmonary artery seem by CT abdomen
- Dr. Linn d/w radiologist. Cant rule out or in PE by such findings. Absence of respiratory symptoms/sob/hypoxia
- cannot obtain CTA chest due to contrast load. DVT study negative
- Dr. Linn stopped Anticoagulation. Will observe
Acute right pyelonephritis and cystitis
Acute on chronic steroid induced leukocytosis
- completed 3 days of Cefepime for urine culture growing MSSA
- blood cultures negative
Acute anemia
- combination of dilutional/anemia of chronic disease and acute blood loss anemia (blood in urine)
- negative rectal exam
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 normal iron level.
Acute SHAILESH, mild, resolved.
- Held Advil & Losartan
- given IVF
- monitor renal function.
Mild hyponatremia
History of MS
- continue prednisone 5 daily
Essential HTN
- Held ARB for SHAILESH/procedure/contrast
- continue amlodipine, low dose
DVT ppx: SCDs & Heparin
Code: DNR/DNI
Anticipated Discharge: > 48 hours
Subjective/Interval History
-
Date of Service: June 01, 2025
denies any complaints
Objective Data
-
Labs:
Laboratory Results
06/01/25 06/01/25 06/01/25
07:41 09:07 10:26
WBC 12.0 H
Hgb 11.0 L D
Hct 33.7 L
Plt Count 678 H D
Sodium Cancelled Cancelled 136
Potassium Cancelled Cancelled 4.8
Chloride Cancelled Cancelled 106
Carbon Dioxide Cancelled Cancelled 26
BUN Cancelled Cancelled 31 H
Creatinine Cancelled Cancelled 0.9
Glucose Cancelled Cancelled 107 H
Calcium Cancelled Cancelled 9.4
Vital Signs:
Vital Signs
Temp Pulse Resp BP Pulse Ox
98.3 F 57 16 152/54 100
06/01/25 07:43 06/01/25 07:43 06/01/25 07:43 06/01/25 07:43 06/01/25 07:43
I&O
05/31/25 06/01/25 06/02/25
06:59 06:59 06:59
Intake Total 1080 / 1080 300 / 300
Balance 1080 / 1080 300 / 300
Physical Exam
-
General: No Apparent Distress
HEENT: Normocephalic and Atraumatic
Respiratory: Negative Wheezes
Cardiac: Regular Rhythm and S1/S2
GI: Soft
Neuro: AO x 3
Psych: Calm
Data Reviewed
-
Total Time Spent with Patient (in minutes): 41
Labs: Labs Reviewed by me
[2025-06-01 15:25] VITALS: BP 111/60
[2025-06-01 15:49] VITALS: BP 105/55; PULSE 89; O2SAT 99
[2025-06-01] MEDS: DICLOFENAC 1% TOPICAL GEL 100 GRAM TOPICAL ×2 (17:28→21:57)
[2025-06-01] MEDS: REMOVE LIDOCAINE PATCH 1 PATCH REMOVE (19:44)
[2025-06-01] MEDS: XALATAN OPHTHALMIC SOLUTION 1 DROP LEFT EYE (21:57)
[2025-06-01 23:54] VITALS: BP 109/52
[2025-06-02] VITALS (15 sets, daily range): BP systolic 105–164; BP diastolic 51–68
[2025-06-02 07:41] LABS: Blood Urea Nitrogen 25 mg/dl (7-17); Calcium 9.1 mg/dl (8.4-10.2); Carbon Dioxide 25 mmol/L (22-30); Chloride 108 mmol/L (98-107); Estimated Creatinine Clearance 35 ml/min; Glucose 87 mg/dl (70-99); Hematocrit 32.0 % (37.0-47.0); Hemoglobin 10.1 g/dL (12.0-16.0); Mean Corp Hgb Conc. 31.6 g/dL (33.0-37.0); Mean Corpuscular Volume 92.8 fL (81.0-99.0); Platelet Count 662 10^3/uL (130-400); Potassium 4.4 mmol/L (3.5-5.1); Red Cell Dist. Width 14.7 % (11.5-14.5); Sodium 137 mmol/L (135-145); eGFR > 60.00
[2025-06-02] MEDS: PLAVIX 75 MG PO (08:06)
[2025-06-02] MEDS: ASPIR LOW (ENTERIC COATED) 81 MG PO (08:06)
[2025-06-02] MEDS: ALPHAGAN 0.2% EYE DROPS 1 DROP BOTH EYES ×2 (08:06→21:24)
[2025-06-02] MEDS: TRUSOPT 2% OPHTHALMIC SOLUTION 1 DROP BOTH EYES ×2 (08:08→21:26)
[2025-06-02] MEDS: TIMOPTIC 0.5% OPHTHALMIC SOLUTION 1 DROP OPHTH ×2 (08:08→21:25)
--- NOTE | 2025-06-02 08:15 | PTCARENOTE ---
Pt sent to [facility] via bed. Pt AOOx3, forgetful. Daily aspirin and plavix adminsitered. Report given to Ximena.
--- NOTE | 2025-06-02 09:21 | PTCARENOTE ---
Patient seen by Anesthesia. Patient consent obtained via telephone to [facility] [place] by dr Fish. Report given to Zarina OLSEN. And patient transferred to operating room.
--- NOTE | 2025-06-02 10:15 | W.PN.HOSP.TC ---
Today's Communication/Plan
-
LLE angiogram today
Assessment / Plan
Assessment / Plan
Assessment:
bilateral PAD
- s/p lithotripsy, angioplasty, stent placement of right peripheral arterial disease 06/01
- for LLE angiogram today
- continue ASA/Plavix
- follow Vascular surgery recs
RLE Ext/Knee pain
She complained of discomfort in both sides/knee/heel/ankle
Advanced OA
- Xray: Moderate osteoarthritis in the medial compartment of the right knee. Mild to moderate flexion deformity of the knee.
- pain control
- Orthopedics evaluated; s/p steroid injection. Feeling improved
- PT/OT as able, likely need SNF
CT chest showed filing defect in the right lower lobe pulmonary artery seem by CT abdomen
- Dr. Linn d/w radiologist. Cant rule out or in PE by such findings. Absence of respiratory symptoms/sob/hypoxia
- cannot obtain CTA chest due to contrast load. DVT study negative
- Dr. Linn stopped Anticoagulation. Will observe
Acute right pyelonephritis and cystitis
Acute on chronic steroid induced leukocytosis
- completed 3 days of Cefepime for urine culture growing MSSA
- blood cultures negative
Acute anemia
- combination of dilutional/anemia of chronic disease and acute blood loss anemia (blood in urine)
- negative rectal exam
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 normal iron level.
Acute SHAILESH, mild, resolved.
- Held Advil & Losartan
- given IVF
- monitor renal function.
Mild hyponatremia
History of MS
- continue prednisone 5 daily
Essential HTN
- Held ARB for SHAILESH/procedure/contrast
- continue amlodipine, low dose
DVT ppx: SCDs & Heparin
Code: DNR/DNI
Anticipated Discharge: > 48 hours
Subjective/Interval History
-
Date of Service: June 02, 2025
no overnight events
for angiogram today
Objective Data
-
Labs:
Laboratory Results
06/02/25
06:30
WBC 11.9 H
Hgb 10.1 L
Hct 32.0 L
Plt Count 662 H
Sodium 137
Potassium 4.4
Chloride 108 H
Carbon Dioxide 25
BUN 25 H
Creatinine 0.9
Glucose 87
Calcium 9.1
Vital Signs:
Vital Signs
Temp Pulse Resp BP Pulse Ox
98.1 F 69 14 123/64 96
06/02/25 08:51 06/02/25 08:51 06/02/25 08:51 06/02/25 08:51 06/02/25 08:51
I&O
06/01/25 06/02/25 06/03/25
06:59 06:59 06:59
Intake Total 300 / 300 360 / 360
Balance 300 / 300 360 / 360
Physical Exam
-
General: No Apparent Distress
HEENT: Normocephalic and Atraumatic
Respiratory: Negative Wheezes
Cardiac: Regular Rhythm and S1/S2
GI: Soft
Genito-urinary: No Costovertebral Tender
Neuro: AO x 3
Psych: Calm
Data Reviewed
-
Total Time Spent with Patient (in minutes): 41
Labs: Labs Reviewed by me
[2025-06-02 11:12] LABS: ACT-LR - POC > 397 Seconds (116-155)
--- NOTE | 2025-06-02 12:24 | W.SUR.POST ---
Surgical Immediate Post Op
Note
Pre Op Diagnosis: PAD
Post Op Diagnosis: PAD
Procedure Performed: LLE angiogram via R femoral access. Intravascular lithotripsy of peroneal/TP trunk. Balloon angioplasty of same segment. DCB angioplasty of below knee popliteal artery.
Primary Surgeon: Manuel Fish III, MD
Secondary Surgeons: Marino Adams MD
Anesthesia: see anesthesia records
Estimated Blood Loss: see anesthesia records
Fluids: see anesthesia records
Drains/Shunts: none
Specimens/Cultures: none
Doppler/Duplex/Angio (Y/N): Angiogram
Complications: none
Operative Findings: LLE angiogram via R femoral access. Intravascular lithotripsy of peroneal/TP trunk. Balloon angioplasty of same segment. DCB angioplasty of below knee popliteal artery.
--- NOTE | 2025-06-02 13:30 | PTCARENOTE ---
Pt transferred to [facility] from PACU. Report received from Nahed OLSEN. Rt femoral dressing D&I. BL pedal pulses weak on palpation. Normal sensation bl. VS stable. Pt AAOx3 Oriented to surroundings with call meehan in reach. Aware to lay flat with no leg
movement.
[2025-06-02] MEDS: NSS 1000 IV (14:36)
--- NOTE | 2025-06-02 14:43 | OR.RPT ---
Operative Report
Operative Report
Date of Operation: 06/02/2025
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
Post Op Diagnosis: [place] artery atherosclerosis with left heel ulceration
Procedure:
1. Intravascular lithotripsy to left popliteal artery below the knee (Shockwave Javelin)
2. Intravascular lithotripsy to left tibioperoneal trunk and peroneal artery (Shockwave Javelin)
3. Balloon angioplasty of left peroneal artery (2 mm x 200 mm distal; 2.5 mm x 150 mm mid/proximal)
4. Balloon angioplasty of tibioperoneal trunk (3 mm --> 3.5 mm angioplasty balloon)
5. Drug-eluting bioabsorbable scaffold to left tibioperoneal trunk (2.5 mm x 38 mm Weston Esprit)
6. Drug coated balloon angioplasty of popliteal artery (4 mm x 220 mm Lutonix)
7. Diagnostic left lower extremity arteriogram
8. Ultrasound-guided percutaneous access to the right common femoral artery
Surgeon: Manuel Fish III, MD
Injection Maintenance Technician: Marino Adams MD PGY-6
Anesthesia: Sedation with local
Fluoroscopy:
35 min
82 mGy
16.06 gy.cm2
Complications: None
Estimated Blood Loss: Less than 20 cc
History and Indications for Procedure: 84-year-old female with limb threatening ischemia manifested by nonhealing bilateral heel ulcers. She had recently undergone lower extremity endovascular intervention on the right and we brought her back today
to intervene on the left.
Procedure in Detail: Jessica Meraz was correctly identified and placed supine on the operating table. After adequate induction of anesthesia the bilateral groins were prepped and draped in the usual sterile fashion. A timeout was performed with
the nursing and anesthesia staff confirming the patient's identity as well as the nature and laterality of the procedure.
The right common femoral artery was identified under ultrasound guidance. The artery was patent. The superior and inferior aspects of the femoral head were identified with radiographic guidance and marked at the skin level. The proposed puncture
site was infiltrated with local anesthesia. Under ultrasound guidance we accessed the right common femoral artery with a micropuncture needle and upsized to a 5 Fr sheath over a Hammer & Chisel wire. The wire and a ShepherAdditech hook flush catheter were
advanced into the distal abdominal aorta and a diagnostic aorto-biiliac arteriogram was performed:
AORTO-ILIAC ARTERIOGRAM:
Aorta: Patent with no significant stenosis identified
Right common iliac artery: Patent with no significant stenosis identified
Right external iliac artery: Patent with no significant stenosis identified
Left common iliac artery: Patent with no significant stenosis identified
Left external iliac artery: Patent with no significant stenosis identified
Under roadmap guidance using a Glidewire and the Shepherds hook catheter we selected the left common iliac artery and then the external iliac artery. A catheter was tracked up and over the aortic bifurcation and placed in the distal external iliac
artery. A diagnostic left lower extremity arteriogram was then performed which demonstrated the following:
LEFT LOWER EXTREMITY:
Common femoral artery: Patent with no stenosis identified.
Profunda femoral artery: Patent. Diffusely small diameter. Scattered disease throughout distal branches
Superficial femoral artery: Patent. Mild areas of stenosis identified throughout. No critical or flow-limiting stenosis identified.
Popliteal artery: Patent. Areas of moderate to high-grade stenosis identified behind the knee. High-grade stenosis identified below the knee
Anterior tibial artery: Patent stump proximally. Focal occlusion proximally. Reconstituted distally. The artery continues across the ankle to form the dorsalis pedis artery.
Tibioperoneal trunk: Patent. Diffuse high-grade stenosis.
Peroneal artery: Patent. Proximal and mid segment with high-grade stenosis. Small diameter distally.
Posterior tibial artery: Patent proximally but occludes with no distal reconstitution identified.
ENDOVASCULAR INTERVENTION: Systemic heparin was administered. Selected the superficial femoral artery. Exchanged out for a 6 Fr 70 cm sheath over a Travelogy wire. Selected the popliteal artery under roadmap guidance. The high-grade stenosis in the
popliteal artery, tibioperoneal trunk and proximal peroneal artery was crossed with a Quickcross and Glidewire. The wire and catheter were advanced into the peroneal artery and subtraction angio confirmed proper position in the true lumen. Exchanged
out for a 0.014 wire.
Due to the heavily calcified nature of the arterial disease and in an effort to successfully cross the lesion, modify the calcium and achieve luminal gain with endovascular intervention I elected to proceed with intravascular lithotripsy with a
Shockwave Javelin catheter. The Javelin catheter was brought into position under radiographic guidance over the 0.014 wire. The Javelin catheter was advanced through the below the knee popliteal artery stenosis and across the tibioperoneal trunk and
peroneal artery disease while simultaneously delivering lithotripsy pulses. 70 pulses were delivered. Subsequent arteriogram demonstrated improvement. I then followed this with 2.5 mm x 150 mm angioplasty balloon to the mid/proximal peroneal artery
and tibioperoneal trunk. The balloon was positioned in the desired location under roadmap guidance, inflated to nominal pressure and held in place for 3-minute inflation. The tibioperoneal trunk and distal below-knee popliteal artery were then
treated with a 3 mm x 100 mm angioplasty balloon at nominal pressure with a 3-minute inflation. Subsequent arteriogram demonstrated significant improvement but residual stenosis remained in the tibioperoneal trunk and popliteal artery. I then
treated the popliteal artery disease with a 4 mm x 220 mm Lutonix drug-coated angioplasty balloon. The balloon was positioned in the desired location under roadmap guidance, inflated to nominal pressure and held in place for a 3-minute inflation.
Subsequent arteriogram demonstrated significant improvement in the appearance of the popliteal artery and no residual stenosis or dissection was identified. Residual stenosis was again demonstrated in the tibioperoneal trunk. This was treated with
a 3.5 mm x 40 mm angioplasty balloon at nominal pressure for 3-minute inflation. Subsequent arteriogram demonstrated sluggish flow through the tibioperoneal trunk with an area of dissection and focal extravasation. This was then treated with a 2.5
mm x 38 mm Weston Esprit stent. The stent was positioned across the tibioperoneal trunk under roadmap guidance and deployed by inflating the balloon to nominal pressure and holding for 2 minutes. Subsequent arteriogram demonstrated a good
technical result with a widely patent tibioperoneal trunk and no residual stenosis, extravasation or dissection identified. There was somewhat sluggish flow through the peroneal artery but distally there appeared to be significant spasm and small
diameter was again demonstrated as seen on prior arteriogram. Nitroglycerin was injected directly into the distal peroneal artery through a 0.014 Quickcross. The distal peroneal artery was then treated with a 2 mm x 220 mm angioplasty balloon at
nominal pressure with a 3-minute inflation.
A completion arteriogram demonstrated an excellent technical result with brisk flow through the tibioperoneal trunk and peroneal artery to the ankle. Flow was again demonstrated through the anterior tibial artery with a focal occlusion again
identified proximally. Reconstitution of the anterior tibial artery was identified with flow across the ankle to the dorsalis pedis. Again demonstrated was an occluded posterior tibial artery. Limited flow to the heel was identified.
Satisfied with this result we concluded the procedure. The sheath tip was pulled back into the right external iliac artery. Protamine was administered. The sheath was secured in place with the plan to pull it in the recovery area.
The patient tolerated the procedure well and was taken to the recovery area in stable condition.
Attestation: I was present and responsible for the entire procedure.
Signed:
Manuel Fish III, MD
Vascular Surgery
[facility]
[2025-06-02] MEDS: DICLOFENAC 1% TOPICAL GEL TOPICAL ×3 (14:46→15:56)
[2025-06-02] MEDS: TYLENOL PO (14:46)
--- NOTE | 2025-06-02 15:21 | CM ---
Per physician patient maybe cleared for discharge or Sunday, update provided to Maria Esther at [facility] admissions, .
Plan; Patient to transfer to [facility] when stable.
[2025-06-02] MEDS: DELTASONE 5 MG PO (15:52)
[2025-06-02] MEDS: LIDOCAINE 4% PATCH 1 PATCH TOPICAL (15:52)
[2025-06-02] MEDS: CYMBALTA DELAYED RELEASE 40 MG PO (15:52)
[2025-06-02] MEDS: NORVASC 5 MG PO (15:53)
[2025-06-02] MEDS: SANTYL OINTMENT 1 APPLIC TOPICAL (15:53)
[2025-06-02] MEDS: VITAMIN D3 (cholecalciferol) 25 MCG PO (15:54)
[2025-06-02] MEDS: TYLENOL 1000 MG PO ×2 (15:54→21:26)
[2025-06-02] MEDS: MYCOSTATIN CREAM 1 APPLIC TOPICAL ×2 (15:55→21:25)
[2025-06-02] MEDS: DICLOFENAC 1% TOPICAL GEL 100 GRAM TOPICAL ×2 (15:56→21:26)
[2025-06-02] MEDS: XALATAN OPHTHALMIC SOLUTION 1 DROP LEFT EYE (21:27)
[2025-06-02] MEDS: REMOVE LIDOCAINE PATCH 1 PATCH REMOVE (21:29)
--- NOTE | 2025-06-03 08:03 | W.PN.VS ---
Today's Communication / Plan
-
Discussed with Dr. Garcia
Assessment/Plan
-
Status post
Intravascular lithotripsy to right below-knee popliteal artery, tibioperoneal trunk and peroneal artery using Shockwave Javelin catheter
Intravascular lithotripsy to right superficial femoral artery and popliteal artery using 6 mm x 80 mm Shockwave E8
Balloon angioplasty of right peroneal artery (2.5 mm x 220 mm angioplasty balloon)
Balloon angioplasty of tibioperoneal trunk (3.5 mm x 60 mm angioplasty balloon)
Drug-eluting bioabsorbable scaffold stent placement to distal tibioperoneal trunk and proximal peroneal artery (3 mm x 38 mm Weston Esprit)
Drug-coated balloon angioplasty of below-knee popliteal artery (4 mm x 60 mm Lutonix drug-coated angioplasty balloon)
Balloon angioplasty and stenting of superficial femoral artery (6 mm x 140 mm Zilver PTX)
Postop day 1
1. Intravascular lithotripsy to left popliteal artery below the knee (Shockwave Javelin)
2. Intravascular lithotripsy to left tibioperoneal trunk and peroneal artery (Shockwave Javelin)
3. Balloon angioplasty of left peroneal artery (2 mm x 200 mm distal; 2.5 mm x 150 mm mid/proximal)
4. Balloon angioplasty of tibioperoneal trunk (3 mm --> 3.5 mm angioplasty balloon)
5. Drug-eluting bioabsorbable scaffold to left tibioperoneal trunk (2.5 mm x 38 mm Weston Esprit)
6. Drug coated balloon angioplasty of popliteal artery (4 mm x 220 mm Lutonix)
Plan:
Groin site stable this a.m.
Continue DAPT
Okay for discharge from vascular standpoint, follow-up added to the chart
Subjective Data
-
Date of Service: June 03, 2025
Patient seen at bedside this a.m. Patient offers no complaints at this time. No events overnight. Groin site stable.
Objective Data
-
Vital Signs
Temp Pulse Resp BP Pulse Ox
99.5 F 76 22 105/68 95
06/02/25 23:22 06/02/25 23:22 06/02/25 23:22 06/02/25 23:22 06/02/25 23:22
Intake and Output
06/02/25 06/03/25 06/04/25
06:59 06:59 06:59
Intake Total 360 / 360 850 / 850
Balance 360 / 360 850 / 850
Intake:
Oral fluids 360 / 360 450 / 450
IV fluids (Total) 400 / 400
Other:
How many times incontinent 4 1
MODERATE amount urine
How many times incontinent 2 3
SATURATED amount urine
Calcium 9.1 mg/dl (8.4-10.2) 06/02/25 06:30
Magnesium 2.2 mg/dl (1.6-2.3) 05/23/25 05:49
Total Bilirubin 0.6 mg/dl (0.2-1.3) 05/22/25 16:01
AST 17 U/L (14-36) 05/22/25 16:01
ALT 14 U/L (0-35) 05/22/25 16:01
Alkaline Phosphatase 91 U/L (38-126) 05/22/25 16:01
Total Protein 6.4 g/dl (6.3-8.2) 05/22/25 16:01
Albumin 3.4 g/dl (3.5-5.0) L 05/22/25 16:01
Physical Exam
-
AAO x 3
No tachypnea on room air
No tachycardia
Abdomen soft
Bilateral groin sites clean, dry, intact, soft, flat
Bilateral feet warm and pink
[2025-06-03 08:42] VITALS: BP 143/73
[2025-06-03] MEDS: CYMBALTA DELAYED RELEASE 40 MG PO (08:49)
[2025-06-03] MEDS: TYLENOL 1000 MG PO ×3 (08:49→21:01)
[2025-06-03] MEDS: NORVASC 5 MG PO (08:49)
[2025-06-03] MEDS: PLAVIX 75 MG PO (08:49)
[2025-06-03] MEDS: DICLOFENAC 1% TOPICAL GEL 100 GRAM TOPICAL ×3 (08:50→17:59)
[2025-06-03] MEDS: VITAMIN D3 (cholecalciferol) 25 MCG PO (08:50)
[2025-06-03] MEDS: LIDOCAINE 4% PATCH 1 PATCH TOPICAL (08:50)
[2025-06-03] MEDS: ASPIR LOW (ENTERIC COATED) 81 MG PO (08:51)
[2025-06-03] MEDS: DELTASONE 5 MG PO (08:55)
[2025-06-03] MEDS: ALPHAGAN 0.2% EYE DROPS 1 DROP BOTH EYES ×2 (08:55→20:52)
[2025-06-03] MEDS: TRUSOPT 2% OPHTHALMIC SOLUTION 1 DROP BOTH EYES ×2 (08:56→20:53)
[2025-06-03] MEDS: TIMOPTIC 0.5% OPHTHALMIC SOLUTION 1 DROP OPHTH ×2 (08:57→20:53)
[2025-06-03] MEDS: MYCOSTATIN CREAM 1 APPLIC TOPICAL ×2 (08:58→20:53)
[2025-06-03 09:16] LABS: Hematocrit 29.1 % (37.0-47.0); Hemoglobin 9.4 g/dL (12.0-16.0); Mean Corp Hgb Conc. 32.3 g/dL (33.0-37.0); Mean Corpuscular Volume 92.1 fL (81.0-99.0); Platelet Count 656 10^3/uL (130-400); Red Cell Dist. Width 14.7 % (11.5-14.5)
[2025-06-03 10:02] LABS: Blood Urea Nitrogen 36 mg/dl (7-17); Calcium 8.7 mg/dl (8.4-10.2); Carbon Dioxide 19 mmol/L (22-30); Chloride 106 mmol/L (98-107); Estimated Creatinine Clearance 35 ml/min; Glucose 143 mg/dl (70-99); Potassium 4.8 mmol/L (3.5-5.1); Sodium 134 mmol/L (135-145); eGFR > 60.00
--- NOTE | 2025-06-03 14:32 | W.PN.HOSP.TC ---
Today's Communication/Plan
-
repeat UA with new leukocytosis although could be steroid related - did receive Decadron from Anesthesia/procedure
DC planning in 24 hours
Assessment / Plan
Assessment / Plan
Assessment:
bilateral PAD
- s/p lithotripsy, angioplasty, stent placement of right peripheral arterial disease 06/01
- s/p LE angiogram via R femoral access. Intravascular lithotripsy of peroneal/TP trunk. Balloon angioplasty of same segment. DCB angioplasty of below knee popliteal artery 06/02.
- continue ASA/Plavix
- follow Vascular surgery OP f/u
RLE Ext/Knee pain
She complained of discomfort in both sides/knee/heel/ankle
Advanced OA
- Xray: Moderate osteoarthritis in the medial compartment of the right knee. Mild to moderate flexion deformity of the knee.
- pain control
- Orthopedics evaluated; s/p steroid injection. Feeling improved
- PT/OT as able, likely need SNF
CT chest showed filing defect in the right lower lobe pulmonary artery seem by CT abdomen
- Dr. Linn d/w radiologist. Cant rule out or in PE by such findings. Absence of respiratory symptoms/sob/hypoxia
- cannot obtain CTA chest due to contrast load. DVT study negative
- Dr. Linn stopped Anticoagulation. Will observe
Acute right pyelonephritis and cystitis
Acute on chronic steroid induced leukocytosis
- completed 3 days of Cefepime for urine culture growing MSSA
- repeat UA
- blood cultures negative
Acute anemia
- combination of dilutional/anemia of chronic disease and acute blood loss anemia (blood in urine)
- negative rectal exam
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 normal iron level.
Acute SHAILESH, mild, resolved.
- Held Advil & Losartan
- given IVF
- monitor renal function.
Mild hyponatremia
History of MS
- continue prednisone 5 daily
Essential HTN
- Held ARB for SHAILESH/procedure/contrast
- continue amlodipine, low dose
DVT ppx: SCDs & Heparin
Code: DNR/DNI
Anticipated Discharge: Within 24 hours
Subjective/Interval History
-
Date of Service: June 03, 2025
resting comfortably, no complaints at present
Objective Data
-
Labs:
Laboratory Results
06/03/25
08:16
WBC 24.9 H
Hgb 9.4 L
Hct 29.1 L
Plt Count 656 H
Sodium 134 L
Potassium 4.8
Chloride 106
Carbon Dioxide 19 L
BUN 36 H
Creatinine 0.9
Glucose 143 H
Calcium 8.7
Vital Signs:
Vital Signs
Temp Pulse Resp BP Pulse Ox
98.2 F 77 14 143/73 96
06/03/25 08:42 06/03/25 08:49 06/03/25 08:42 06/03/25 08:49 06/03/25 08:42
I&O
06/02/25 06/03/25 06/04/25
06:59 06:59 06:59
Intake Total 360 / 360 850 / 850
Balance 360 / 360 850 / 850
Physical Exam
-
General: No Apparent Distress
HEENT: Normocephalic and Atraumatic
Respiratory: Negative Wheezes
Cardiac: Regular Rhythm and S1/S2
GI: Soft
Neuro: AO x 3
Psych: Calm
Data Reviewed
-
Total Time Spent with Patient (in minutes): 42
Labs: Labs Reviewed by me
--- NOTE | 2025-06-03 15:07 | CM ---
CM following re: discharge planning.
Reviewed pt's chart, met with pt. Pt's daughter Leisa and granddaughter at bedside.
According to pt most likely will be ready for discharge tomorrow. Both pt and her family are aware, expressed their agreement. IMM reviewed, placed on chart, pt has a copy.
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
A referral to [facility] made, spoke to liatony Mayo and she confirmed that pt is accepted for admission tomorrow.
D/C plan: [facility] tomorrow 06/04/25.
CM will follow to assist pt with discharge to [facility].
[2025-06-03 15:28] VITALS: BP 105/49
[2025-06-03 15:52] VITALS: BP 98/53; O2SAT 96
[2025-06-03] MEDS: SANTYL OINTMENT 1 APPLIC TOPICAL (16:51)
[2025-06-03 18:42] LABS: Urine Character Clear (Clear)
[2025-06-03 18:48] LABS: Urine Squamous Cell 16-20 /LPF (Few)
[2025-06-03 18:50] LABS: Urine White Cell 90-100 /HPF (0-5)
[2025-06-03] MEDS: XALATAN OPHTHALMIC SOLUTION 1 DROP LEFT EYE (20:53)
[2025-06-03] MEDS: REMOVE LIDOCAINE PATCH 1 PATCH REMOVE (20:54)
[2025-06-03] MEDS: DICLOFENAC 1% TOPICAL GEL 4 GRAM TOPICAL (20:54)
[2025-06-03 23:55] VITALS: BP 108/59
[2025-06-04 08:23] LABS: Hematocrit 28.2 % (37.0-47.0); Hemoglobin 8.8 g/dL (12.0-16.0); Mean Corp Hgb Conc. 31.2 g/dL (33.0-37.0); Mean Corpuscular Volume 93.7 fL (81.0-99.0); Platelet Count 632 10^3/uL (130-400); Red Cell Dist. Width 15.1 % (11.5-14.5)
[2025-06-04 08:31] LABS: Blood Urea Nitrogen 33 mg/dl (7-17); Calcium 9.0 mg/dl (8.4-10.2); Carbon Dioxide 24 mmol/L (22-30); Chloride 108 mmol/L (98-107); Estimated Creatinine Clearance 29 ml/min; Glucose 88 mg/dl (70-99); Potassium 4.4 mmol/L (3.5-5.1); Sodium 137 mmol/L (135-145); eGFR 48.94
[2025-06-04] MEDS: TYLENOL 1000 MG PO ×2 (08:42→16:18)
[2025-06-04] MEDS: LIDOCAINE 4% PATCH 1 PATCH TOPICAL (08:43)
[2025-06-04] MEDS: CYMBALTA DELAYED RELEASE 40 MG PO (08:44)
[2025-06-04] MEDS: NORVASC 5 MG PO (08:44)
[2025-06-04] MEDS: ASPIR LOW (ENTERIC COATED) 81 MG PO (08:44)
[2025-06-04] MEDS: DELTASONE 5 MG PO (08:44)
[2025-06-04] MEDS: PLAVIX 75 MG PO (08:44)
[2025-06-04] MEDS: VITAMIN D3 (cholecalciferol) 25 MCG PO (08:45)
[2025-06-04] MEDS: MYCOSTATIN CREAM 1 APPLIC TOPICAL (08:46)
[2025-06-04] MEDS: ALPHAGAN 0.2% EYE DROPS 1 DROP BOTH EYES (08:47)
[2025-06-04] MEDS: TIMOPTIC 0.5% OPHTHALMIC SOLUTION 1 DROP OPHTH (08:47)
[2025-06-04] MEDS: TRUSOPT 2% OPHTHALMIC SOLUTION 1 DROP BOTH EYES (08:47)
[2025-06-04] MEDS: DICLOFENAC 1% TOPICAL GEL 100 GRAM TOPICAL ×3 (08:48→16:18)
[2025-06-04 09:01] VITALS: BP 135/51
--- NOTE | 2025-06-04 10:45 | W.PN.HOSP.TC ---
Today's Communication/Plan
-
dc to SNF today
Assessment / Plan
Assessment / Plan
Assessment:
bilateral PAD
- s/p lithotripsy, angioplasty, stent placement of right peripheral arterial disease 06/01
- s/p LE angiogram via R femoral access. Intravascular lithotripsy of peroneal/TP trunk. Balloon angioplasty of same segment. DCB angioplasty of below knee popliteal artery 06/02.
- continue ASA/Plavix
- follow Vascular surgery OP f/u
RLE Ext/Knee pain
She complained of discomfort in both sides/knee/heel/ankle
Advanced OA
- Xray: Moderate osteoarthritis in the medial compartment of the right knee. Mild to moderate flexion deformity of the knee.
- pain control
- Orthopedics evaluated; s/p steroid injection. Feeling improved
- PT/OT as able, likely need SNF
CT chest showed filing defect in the right lower lobe pulmonary artery seem by CT abdomen
- Dr. Linn d/w radiologist. Cant rule out or in PE by such findings. Absence of respiratory symptoms/sob/hypoxia
- cannot obtain CTA chest due to contrast load. DVT study negative
- Dr. Linn stopped Anticoagulation. Will observe
Acute right pyelonephritis and cystitis
Acute on chronic steroid induced leukocytosis
- completed 3 days of Cefepime for urine culture growing MSSA; but suspected poor sample due to Squamous cells. Repeat UA similar
- will cover additional 4 days with Levaquin
- blood cultures negative
Acute anemia
- combination of dilutional/anemia of chronic disease and acute blood loss anemia (blood in urine)
- negative rectal exam
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 normal iron level.
Acute SHAILESH, mild, resolved.
- Held Advil & Losartan
- given IVF
- monitor renal function.
Mild hyponatremia
History of MS
- continue prednisone 5 daily
Essential HTN
- Held ARB for SHAILESH/procedure/contrast
- continue amlodipine, low dose
DVT ppx: SCDs & Heparin
Code: DNR/DNI
More than 30 minutes spent in discharge including
Final examination of the patient
Summarizing hospital stay
Instructions for continuing care to all relevant caregivers
Preparation of discharge records, prescriptions, and referral forms
Total time spent (in minutes): 41
Anticipated Discharge: Today
Subjective/Interval History
-
Date of Service: June 04, 2025
denies any new complaints at present
Objective Data
-
Labs:
Laboratory Results
06/04/25
07:09
WBC 12.1 H
Hgb 8.8 L
Hct 28.2 L
Plt Count 632 H
Sodium 137
Potassium 4.4
Chloride 108 H
Carbon Dioxide 24
BUN 33 H
Creatinine 1.1 H
Glucose 88
Calcium 9.0
Vital Signs:
Vital Signs
Temp Pulse Resp BP Pulse Ox
98.2 F 59 16 135/51 97
06/04/25 09:01 06/04/25 09:01 06/04/25 09:01 06/04/25 09:01 06/04/25 09:01
I&O
06/03/25 06/04/25 06/05/25
06:59 06:59 06:59
Intake Total 850 / 850 660 / 660
Balance 850 / 850 660 / 660
Physical Exam
-
General: No Apparent Distress
HEENT: Normocephalic and Atraumatic
Respiratory: Negative Wheezes
Cardiac: Regular Rhythm and S1/S2
GI: Soft
Neuro: AO x 3
Psych: Calm
Data Reviewed
-
Total Time Spent with Patient (in minutes): 45
Labs: Labs Reviewed by me
--- NOTE | 2025-06-04 11:17 | W.DS.TRANS ---
DC Summary - Electrical High Tension Tester
-
Discharge Instructions:
Discharge Diagnosis/Procedures PAD s/p bilateral angiogram. OA s/p knee steroid
injection, UTI
Diet As tolerated
Activity No strenuous activity
Driving Restrictions No driving for 24 hours
Bathing Restrictions OK to Shower
Others Tests Ultrasound appt: 06/25 @ 1pm at [facility]
Instructions:
Stand-Alone Forms:
Changes to Home Medications: No
Discharge Medications:
DC Medications w/original date entered in [employer]
acetaminophen 325 mg tablet (Tylenol) 650 mg PO Q4HPRN PRN mild pain 05/22/25
bisacodyl 10 mg rectal suppository (Dulcolax (bisacodyl)) 10 mg LA Q8HPRN PRN constipation 05/22/25
brimonidine 0.2 % eye drops 1 drp BOTH EYES BID 05/22/25
cholecalciferol (vitamin D3) 25 mcg (1,000 unit) tablet (Vitamin D3) 25 mcg PO DAILY 05/22/25
collagenase clostridium histo. 250 unit/gram topical ointment (Santyl) 1 applic topical QPM right mata 05/22/25
dorzolamide 22.3 mg-timolol 6.8 mg/mL eye drops 1 drp BOTH EYES BID 05/22/25
duloxetine 40 mg capsule,delayed release 40 mg PO DAILY 05/22/25
latanoprost 0.005 % eye drops 1 drp LEFT EYE HS 05/22/25
lidocaine 5 % topical patch (Lidoderm) 1 patch topical DAILY right knee 05/22/25
melatonin 1 mg tablet 1 mg PO HSPRN PRN sleep 05/22/25
nystatin 100,000 unit/gram topical cream 1 applic topical BID both feet 05/22/25
prednisone 5 mg tablet 5 mg PO DAILY 05/22/25
acetaminophen 500 mg tablet (Tylenol Extra Strength) 1,000 mg (2 x 500 mg) PO TID #60 tabs 06/04/25
amlodipine 2.5 mg tablet (Norvasc) 2.5 mg PO DAILY #30 tabs 06/04/25
aspirin 81 mg tablet,delayed release 81 mg PO DAILY #30 tabs 06/04/25
clopidogrel 75 mg tablet 75 mg PO DAILY #30 tabs 06/04/25
diclofenac sodium 1 % topical gel 2 g topical QID Pain #100 grams 06/04/25
levofloxacin 750 mg tablet 750 mg PO Q48H #1 tab 06/04/25
Home Medication Changes
Pending Results: No
Total time spent discharging patient (in min): 42
--- NOTE | 2025-06-04 12:06 | CM ---
CM reviewed chart, patient for discharge today, return to [facility]. Call to patients Leisa unger, updated with discharge plan and transport time- patient scheduled for 5:00 p.m. Patient seen bedside, updated, IMM verbally reviewed,
provided with copy, placed in chart. Updated clinicals sent to [facility], aware of transport time. CM will continue to follow for all discharge planning needs.
Plan; Return to [facility], 5:00 p.m. ambulance transport
[facility]
Report: [phone]
[2025-06-04] MEDS: LEVAQUIN 750 MG PO (12:52)
[2025-06-04 15:20] VITALS: BP 115/54
[2025-06-04] MEDS: SANTYL OINTMENT 1 APPLIC TOPICAL (16:18)
== END 2025-06-04 17:54 | DRG 278 ==
LOC: 4 WEST ACU 10:09
PROVIDERS: Internal Medicine; Nurse Practitioner; Nurse Practitioner Acute Care; Nurse Practitioner Family; ADMITTING PHYSICIAN Internal Medicine; ATTENDING PHYSICIAN Internal Medicine; CONSULT PHYSICIAN Orthopaedic Surgery Hand Surgery; EMERGENCY PHYSICIAN Emergency Medicine; FAMILY PHYSICIAN Internal Medicine Geriatric Medicine; OTHER PHYSICIAN Specialist; OTHER PHYSICIAN Surgery Vascular Surgery
PROC: 3E0U3BZ Introduction of Anesthetic Agent into Joints, Percutaneous Approach (ICD-10-PCS; 2025-05-23)
PROC: 3E0U33Z Introduction of Anti-inflammatory into Joints, Percutaneous Approach (ICD-10-PCS; 2025-05-23)
PROC: 047M341 Dilation of Right Popliteal Artery with Drug-eluting Intraluminal Device, using Drug-Coated Balloon, Percutaneous Approach (ICD-10-PCS; 2025-05-27)
PROC: 04FT3ZZ Fragmentation of Right Peroneal Artery, Percutaneous Approach (ICD-10-PCS; 2025-05-27)
PROC: 04FM3ZZ Fragmentation of Right Popliteal Artery, Percutaneous Approach (ICD-10-PCS; 2025-05-27)
PROC: 047K34Z Dilation of Right Femoral Artery with Drug-eluting Intraluminal Device, Percutaneous Approach (ICD-10-PCS; 2025-05-27)
PROC: 04FK3ZZ Fragmentation of Right Femoral Artery, Percutaneous Approach (ICD-10-PCS; 2025-05-27)
PROC: 047T3ZZ Dilation of Right Peroneal Artery, Percutaneous Approach (ICD-10-PCS; 2025-05-27)
PROC: B41D1ZZ Fluoroscopy of Aorta and Bilateral Lower Extremity Arteries using Low Osmolar Contrast (ICD-10-PCS; 2025-05-27)
PROC: 04FU3ZZ Fragmentation of Left Peroneal Artery, Percutaneous Approach (ICD-10-PCS; 2025-06-02)
PROC: 047U3ZZ Dilation of Left Peroneal Artery, Percutaneous Approach (ICD-10-PCS; 2025-06-02)
PROC: 04FN3ZZ Fragmentation of Left Popliteal Artery, Percutaneous Approach (ICD-10-PCS; 2025-06-02)
PROC: B41G1ZZ Fluoroscopy of Left Lower Extremity Arteries using Low Osmolar Contrast (ICD-10-PCS; 2025-06-02)
PROC: 047N341 Dilation of Left Popliteal Artery with Drug-eluting Intraluminal Device, using Drug-Coated Balloon, Percutaneous Approach (ICD-10-PCS; 2025-06-02)
DX: I70.263 Atherosclerosis of native arteries of extremities with gangrene, bilateral legs (principal); I26.99 Other pulmonary embolism without acute cor pulmonale; L97.419 Non-pressure chronic ulcer of right heel and midfoot with unspecified severity; L97.429 Non-pressure chronic ulcer of left heel and midfoot with unspecified severity; N10 Acute pyelonephritis; N30.01 Acute cystitis with hematuria; N17.9 Acute kidney failure, unspecified; E87.1 Hypo-osmolality and hyponatremia; D62 Acute posthemorrhagic anemia; G35 Multiple sclerosis; I10 Essential (primary) hypertension; D72.829 Elevated white blood cell count, unspecified; T38.0X5A Adverse effect of glucocorticoids and synthetic analogues, initial encounter; M17.11 Unilateral primary osteoarthritis, right knee; Z66 Do not resuscitate; M24.561 Contracture, right knee; D63.8 Anemia in other chronic diseases classified elsewhere; T39.315A Adverse effect of propionic acid derivatives, initial encounter; T46.5X5A Adverse effect of other antihypertensive drugs, initial encounter; H40.9 Unspecified glaucoma; G62.9 Polyneuropathy, unspecified; L89.622 Pressure ulcer of left heel, stage 2; L89.610 Pressure ulcer of right heel, unstageable; G89.29 Other chronic pain; Z99.3 Dependence on wheelchair; Z79.52 Long term (current) use of systemic steroids
CPT/HCPCS: 71045; 73562; 75625; 75635; 75710; 80048; 80053; 80061; 81003; 81015; 82550; 83540; 83735; 85018; 85025; 85027; 85610; 85652; 85730; 86140; 86850; 86900; 86901; 87040; 87070; 87086; 87147; 87186; 93005; 93922; 93926; 93971; 96374; 97163; 97167; 97530; 99285; C1725; C1769; C1874; C1894; C2623; C9764; C9772; C9773; Q9967

== ENCOUNTER → 2025-06-25 13:05 | Outpatient (REF) | payer MEDICARE, OTHER, SELFPAY | LOC: DHVS 13:05 | PROVIDERS: ATTENDING PHYSICIAN Surgery Vascular Surgery | DX: I73.9 Peripheral vascular disease, unspecified (principal) | CPT/HCPCS: 93922; 93925 ==

== ENCOUNTER 2025-07-01 16:20 | Inpatient (IN) | payer MEDICARE, OTHER, SELFPAY ==
[2025-07-01] VITALS (16 sets, daily range): BP systolic 115–152; BP diastolic 47–89; BMI 21.3; BMI 19.3
[2025-07-01 12:31] LABS: Hematocrit 22.8 % (37.0-47.0); Hemoglobin 7.1 g/dL (12.0-16.0); Mean Corp Hgb Conc. 31.1 g/dL (33.0-37.0); Mean Corpuscular Volume 99.6 fL (81.0-99.0); Nucleated Red Blood Cells % 0 %; Platelet Count 491 10^3/uL (130-400); Red Cell Dist. Width 15.1 % (11.5-14.5)
[2025-07-01 12:50] LABS: Urine Character Cloudy (Clear)
--- NOTE | 2025-07-01 13:21 | ED.GENMED ---
History of Present Illness
General
Chief Complaint: Urinary Symptoms
Source: patient
Exam Limitations: none
Time Seen by Provider: 07/01/25 12:25
Nursing documentation reviewed up to this point in time: agreed with
History of Present Illness
History of Present Illness:
Patient is an 84-year-old female with past medical history of peripheral arterial disease hyponatremia chronic anemia MS hypertension from [facility] send for questionable vaginal bleeding and decreased hemoglobin. Patient is on
Plavix and aspirin. Prior to my exam nurse did a straight cath and did not see any bleeding vaginally but there was obvious blood by the urethra.
Patient has no complaints she is aware that she is sent for questionable bleeding. Her blood work was done prior to my exam hemoglobin of 7.1 which is decreased from 8.8 June 04
Phy Exam
General Physical Exam
General Presentation: no apparent distress
General age: appears stated age
General Skin: warm and dry
General Habitus: normal
General Mental: alert
General Hydration: appears well hydrated
Cardiovascular Exam
Cardiovascular Exam: regular rate/rhythm, no murmur and normal peripheral pulses
Pulmonary Exam
Pulmonary Exam: lungs clear and no respiratory distress
Gastrointestinal Exam
Gastrointestinal Exam: non tender and soft
Genitourinary Exam Female
Exam Female: other (vaginal speculum exam done and no bleeding)
Neurological Exam
Neurological Exam: alert and oriented x3
Musculoskeletal Exam
Musculoskeletal Exam: full ROM
Skin Exam
Skin Exam: normal color and warm/dry
Psychiatric Exam
Psychiatric Exam: normal mood/affect
Course
Orders/Labs/Results
Orders:
Orders
07/01/25 12:22
Type And Crossmatch [Type+Screen] Urgent
Complete Blood Count/With Diff Urgent
Comprehensive Metabolic Panel Urgent
Ferritin Urgent
Comment: ADD ON
Folate Urgent
Comment: ADD ON
Iron Urgent
Comment: ADD ON
Total Iron Binding Urgent
Comment: ADD ON
Vitamin B12 Urgent
Comment: ADD ON
07/01/25 12:37
Urinalysis Reflex To Culture Urgent
Date Specimen was Collected: 07/01/25
Time Specimen was Collected: 12:36
Comment: Straight Cath
Urine Microscopic Reflex Cult Urgent
Urine Culture Urgent
MEGHNA Source: U
Specimen Description:
Date Specimen was Collected: 07/01/25
Time Specimen was Collected: 12:36
07/01/25 13:47
CT Abd/Pel (IV only)-DH only Urgent
Reason For Exam: hematuria
IV Insert/Care/Rem.- Treatment PRN
07/01/25 15:35
Add On- LAB Urgent
Tests Added?: iron ferritin tibc, folate b12
07/01/25 15:54
Admit/Transfer Patient As Directed
Co-Sign Provider:
Level of Care: Inpatient admission
Assign to:: Telemetry
Physician / Group: slick rosales
Diagnosis: anemia/ hematuria likely cystitis/UTI
Reason for Telemetry: Arrhythmia
Date to Stop Telemetry: 07/04/25
Time to Stop Telemetry: 11:00
Reason for Hospitalization: anemia/ hematuria likely cystitis/UTI
Expected length of stay greater than two midnights?: Yes
ELOS- Estimated Length of Stay in days: 4
I certify the patient meets the requirements for IP care: Yes
07/01/25 15:55
Code Status As Directed
Resuscitation Status: Do not resuscitate
Reached after discussion with pt or family/Healthcare POA: Yes
Based on pt advanced directive or healthcare POA form: Yes
Decision communicated with: per chart from nd
DNR Bracelet Application ONCE
07/01/25 15:59
PRN Pain Medication Management As Directed
May give lesser potent ordered pain med per pt: Yes
preference::
Protocol:: Medication orders for pain may be administered in a
manner that supports deferring to patient preference
when the pt is:
- Requesting an ordered lesser potent pain medication.
Least to most potent pain medications are defined
as: acetaminophen < NSAID < tramadol < opioids
(morphine, oxycodone, hydromorphone).
- Requesting a lesser dose of the same medication IF
ORDERED.
- Requesting a less intrusive route of administration
if both routes are prescribed by the provider (PO <
IV).
07/04/25 11:00
DC Protocol for Telemetry ONCE
Abnormal Lab Results
07/01/25 07/01/25
12:22 12:37
RBC 2.29 L 10^6/uL
(4.20-5.40)
Hgb 7.1 L g/dL
(12.0-16.0)
Hct 22.8 L %
(37.0-47.0)
MCV 99.6 H fL
(81.0-99.0)
MCHC 31.1 L g/dL
(33.0-37.0)
RDW 15.1 H %
(11.5-14.5)
Plt Count 491 H 10^3/uL
(130-400)
Absolute Monos (auto) 1.0 H 10^3/uL
(0.1-0.6)
Immature Gran % 0.6 H %
(0-0.5)
Monocytes % 14.0 H %
(1.7-9.3)
BUN 23 H mg/dl
(7-17)
Glucose 146 H mg/dl
(70-99)
TIBC 207 L ug/dl
(265-497)
Total Protein 5.9 L g/dl
(6.3-8.2)
Albumin 3.3 L g/dl
(3.5-5.0)
Ur Occult Blood Reflex 4+ A
(Negative)
Leukocyte Esterase Rfl 1+ A
(Negative)
Urine RBC >100 A /HPF
(0-2)
Urine Bacteria (Reflex) Moderate A
(Negative)
Urine Albumin (Reflex) 3+ A
(Neg - Trace)
Crossmatch IS Only See Detail
07/01/25 12:22
07/01/25 12:22
Vital Signs
Initial and Last Documented VS:
Initial Vital Signs
Temp Pulse Resp BP Pulse Ox
98.0 F 64 22 144/53 99
07/01/25 12:15 07/01/25 12:15 07/01/25 12:15 07/01/25 12:15 07/01/25 12:15
Last Documented Vital Signs
Temp Pulse Resp BP Pulse Ox
98.0 F 81 22 128/53 97
07/01/25 17:36 07/01/25 17:36 07/01/25 17:36 07/01/25 17:36 07/01/25 17:15
MDM/Problems Addressed
Differential Diagnosis Includes:
Not limited to vaginal bleeding hematuria anemia
MDM/Problems Addressed:
Patient is a 84 old female from the [facility] sent for evaluation of questionable vaginal bleeding low hemoglobin. Patient however had blood at the site of the urethra while the nurse was doing straight cath and urine was grossly bloody.
Urinalysis shows greater than 100 RBCs. I did a speculum exam and there was no vaginal bleeding. Patient is on Plavix and her hemoglobin dropped from 8.8 June 04 to 7.1 today. With hematuria and anemia along with Plavix will admit to the
hospital. Urine does not appear infected. case d/c w./ ED physician with painless hematuria /plavix will order ct scan .
I did speak with daughter and son-in-law over the phone
Chronic conditions affecting care:
Plavix history of PAD/stenting
*Pulse Oximetry
SaO2: 99
Oxygen Mode of Delivery: Room air
Patient hypoxic: no
*Critical Care Note
Total Time (30-74mins, 75-104mins- exclusive of procedures): Not Applicable
ED Attending Note
-
Portions of this chart may have been created with voice recognition software.� Occasional wrong word or��sound alike� substitutions may have occurred due to the inherent limitations of voice recognition software.
Discharge Plan
Departure
Patient Disposition: Admit
Date of Disposition: 07/01/25
Time of Disposition: 14:46
Admit to: Med/Surg
Admit to doctor: hospitalist
Presentation/result/management discussed w/ accepting MD/DO: Hospitalist
Patient with high blood pressure during this ER visit?: Yes
Condition: Fair
Covid-19: Not Applicable
Discharge Problem:
Hematuria, Anemia
Interventions
Interventions:
*Risk Screen - Suicide Last Done: 07/01/25 12:13
*General Assessment Last Done: 07/01/25 12:14
*Neglect/Abuse Screening Last Done: 07/01/25 12:13
*ED- Fall Risk Assessment Last Done: 07/01/25 12:15
*ED COVID-19 Vaccine History Last Done: 07/01/25 12:15
ED-Female Genitourinary Assessment Last Done: 07/01/25 12:43
[2025-07-01 13:22] LABS: ALT (SGPT) 12 U/L (0-35); AST (SGOT) 21 U/L (14-36); Albumin 3.3 g/dl (3.5-5.0); Alkaline Phosphatase 107 U/L (38-126); Blood Urea Nitrogen 23 mg/dl (7-17); Calcium 9.6 mg/dl (8.4-10.2); Carbon Dioxide 24 mmol/L (22-30); Chloride 107 mmol/L (98-107); Estimated Creatinine Clearance 38 ml/min; Glucose 146 mg/dl (70-99); Potassium 4.4 mmol/L (3.5-5.1); Sodium 136 mmol/L (135-145); Total Protein 5.9 g/dl (6.3-8.2); eGFR > 60.00
[2025-07-01 13:37] LABS: Urine Red Blood Cell >100 /HPF (0-2); Urine Urothelial Cell 0-2 /LPF (FEW)
--- NOTE | 2025-07-01 15:32 | HPS.HSE ---
Addendum entered and electronically signed by Quoc Franklin MD 07/01/25 20:01:
This is an addendum to the consult written by Hyacinth Coleman on 07/01/2025. �Patient seen and examined dependently with [facility].
84-year-old female past medical history of hysterectomy, PAD, cystitis, pyelonephritis, multiple sclerosis wheelchair-bound, hypertension, glaucoma, depression, insomnia, osteoarthritis, stage II left medial heel pressure injury, story presenting
with hematuria for weeks with suprapubic tenderness.
She was recently admitted from 05/22 to 06/04 for right lower extremity pain. �She underwent 2 angiograms with lithotripsy and stenting of the right PAD and left-sided lithotripsy and angioplasty. �She was started on aspirin and Plavix. �This was
complicated by pyelonephritis, also had possible pulm embolism without respiratory symptoms therefore anticoagulation was held. �Urine culture at that time showed MSSA which was resistant to Levaquin. �She was treated for pyelonephritis/cystitis
with hematuria and seen by urology. �She received 3 days of cefepime and 4 days of Levaquin.
Vital signs normal.
Labs show hemoglobin 7.1 from 8.8 previously.
Urinalysis showed greater than [address] abdomen pelvis shows moderate to severe pelvicalyceal and ureteral dilation extending to the right ureterovesicular junction. �Moderate left pelvicalyceal ureteral dilation extending to the ureterovesical junction. �Questionable obstruction. �No
obstructing ureteral calculi.
Patient with hematuria secondary to possibly inadequately treated infectious cystitis. �Await urine culture. �Ceftriaxone started. �Urology consulted. �1 unit blood transfusion. �Patient with recent angioplasty. �Will continue aspirin and hold
Plavix at this time.
Original Note:
Family Physician
-
Family Physician: David Lira
Chief Complaint
-
Hematuria, anemia
History of Present Illness
84-year-old female from [facility] for 1 week of reported suspected vaginal bleeding and decreased hemoglobin of 7.1 which is decreased from 8.8 on 06/04/2025. She had vaginal vault exam in the ER which shows no bleeding. The patient
reports to me she had a hysterectomy. The ER provider also did straight cath urine and noticed obvious blood at the urethra. The patient was admitted 05/22/2025 for PAD however her course was complicated with acute right-sided pyelonephritis and
cystitis. Her urine culture on 05/24/2025 grew MSSA which was resistant to Levaquin. Patient is on Plavix and aspirin. She does complain of some slight suprapubic tenderness increased to the right on palpation only. She is oriented to name,
place, year and president
The patient denies fatigue, fever, chills, headache, chest pain, palpitations, cough, shortness of breath, nausea, vomiting, diarrhea. She had admission 05/22 - 06/04/2025 with stenting of left and right legs being placed on aspirin and Plavix. Her
course was complicated by right-sided pyelonephritis and cystitis completing total 7 days of antibiotics. She had CT chest showing possible PE was placed on IV heparin drip for short period of time however had no evidence of respiratory symptoms
shortness of breath or hypoxia anticoagulation was then stopped. She had SHAILESH that resolved with losartan and NSAIDs
She has past medical history of cystitis without hematuria, pyelonephritis PAD/stenting left and right legs, multiple sclerosis wheelchair-bound, HTN, glaucoma, depression, insomnia, osteoarthritis right knee gallbladder calculi, stage II left
medial heel pressure injury 05/26/2025
Medical History
Past Medical History
Past Medical History: Reports Other
Additional Past Medical History:
cystitis without hematuria
pyelonephritis PAD/stenting left and right legs
multiple sclerosis wheelchair-bound
HTN
glaucoma
depression
insomnia
osteoarthritis right knee gallbladder calculi
stage II left medial heel pressure injury 05/26/2025
Past Surgical History: Reports Other
Additional Past Surgical History:
Stenting left and right legs May 2025
Hysterectomy
Social History
Tobacco: Former Smoker
Alcohol: None
Drug: None
Personal: Single
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
Employment: Retired
Family History
Family History: Not pertinent
Allergies / Home Medications
Allergies reflects when Allergies were last updated in [facility].
Home Medications with original date entered in [facility]
Allergy/Medication List:
Allergies
Allergy/AdvReac Type Severity Reaction Status Date / Time
almond Allergy Unknown Verified 07/01/25 12:14
Sulfa (Sulfonamide Allergy Unknown Verified 07/01/25 12:14
Antibiotics)
Home Medications
acetaminophen 325 mg tablet (Tylenol) 650 mg PO Q4HPRN PRN mild pain 05/22/25
bisacodyl 10 mg rectal suppository (Dulcolax (bisacodyl)) 10 mg WI DAILYPRN PRN if no bm by 3rd day 05/22/25
brimonidine 0.2 % eye drops 1 drp BOTH EYES BID 05/22/25
cholecalciferol (vitamin D3) 25 mcg (1,000 unit) tablet (Vitamin D3) 25 mcg PO DAILY 05/22/25
dorzolamide 22.3 mg-timolol 6.8 mg/mL eye drops 1 drp BOTH EYES BID 05/22/25
latanoprost 0.005 % eye drops 1 drp LEFT EYE HS 05/22/25
melatonin 1 mg tablet 1 mg PO HSPRN PRN sleep 05/22/25
nystatin 100,000 unit/gram topical cream 1 applic topical BID both feet 05/22/25
prednisone 5 mg tablet 5 mg PO QPM m.s. 05/22/25
amlodipine 2.5 mg tablet (Norvasc) 2.5 mg PO DAILY #30 tabs 06/04/25
aspirin 81 mg tablet,delayed release 81 mg PO DAILY #30 tabs 06/04/25
clopidogrel 75 mg tablet 75 mg PO DAILY #30 tabs 06/04/25
acetaminophen 325 mg tablet (Tylenol) 650 mg PO BID 07/01/25
acetaminophen 500 mg tablet (Tylenol Extra Strength) 1,000 mg PO HS 07/01/25
diclofenac sodium 1 % topical gel 2 g topical QID both knee pain 07/01/25
ferrous sulfate 325 mg (65 mg iron) tablet 325 mg PO DAILY 07/01/25
lidocaine 4 % topical patch 1 patch topical DAILY right knee 07/01/25
tramadol 50 mg tablet 25 mg PO Q6HPRN PRN moderate pain 07/01/25
Review of Systems
-
History Source: Patient
A 12 point ROS was completed and negative except as noted: Yes
Constitutional: Denies Fever or Chills
EENT: Denies Sore Throat or Runny Nose
Respiratory: Denies Cough or Trouble Breathing
Cardiac: Denies Chest Pain, Diaphoresis, Palpitations or Syncope
Abdomen/GI: Reports Abdominal Pain (Suprapubic to right on palpation only); Denies Nausea, Vomiting, Diarrhea, Constipated or Bloody Stools
: Reports Other (Hematuria); Denies Dysuria
Musculoskeletal: Denies Joint Pain or Edema
Skin: Denies Itching or Rash
Neurological: Reports Weakness (Chronic to legs due to MS); Denies Dizzy or Headache
Endocrine: Reports No Symptoms
Hematologic/Lymphatic: Reports No Symptoms
Psych: Reports Calm
Physical Exam
Vital Signs
Vital Signs
Temp Pulse Resp BP Pulse Ox
98.0 F 65 23 133/78 98
07/01/25 12:15 07/01/25 15:15 07/01/25 15:15 07/01/25 15:00 07/01/25 15:15
Physical Exam
General: Comfortable and Conversant; No Pain, Fever or Chills
HEENT: NormoCephalic, Anicteric, Moist mucous membranes, PERRLA, [place] Conjunctivae and No Ptosis
Respiratory: Clear; No Wheezes or Rales
Cardiac: S1/S2 and Regular Rhythm; No Murmur, Rub, Gallop or Peripheral Edema
Breast: Deferred by me
GI: Soft, Non Distended, Normal Bowel Sounds, Tender (Slight tenderness suprapubic to right on palpation only) and No Hepatosplenomegaly
Genito-urinary: No costovertebral tender and Other (Urethral bleeding by ER provider noticed on exam during straight cath); No Vaginal Bleeding (Vaginal exam completed by ER provider no hematuria in vaginal vault)
Musculoskeletal: No Clubbing, No Cyanosis and No Edema
Skin: Warm and Dry; No Rash
Neuro: AO x 3 (Name, place, president, year), Cranial Nerves Intact, No Sensory Deficits and Other (Limited range of motion lower extremity secondary to MS); No Slurred Speech, Facial Droop, Tremors or Sedated
Psych: Calm
Laboratory Results
-
07/01/25 12:22
07/01/25 12:22
Laboratory Results
Total Bilirubin 0.5 mg/dl (0.2-1.3) 07/01/25 12:22
AST 21 U/L (14-36) 07/01/25 12:22
ALT 12 U/L (0-35) 07/01/25 12:22
Alkaline Phosphatase 107 U/L (38-126) 07/01/25 12:22
Impression/Plan
-
Impression/plan:
Admit to MedSurg
#Acute hematuria likely cystitis and adequate treated MSSA
#Chronic anemia/macrocytic anemia
#History of Acute right-sided pyelonephritis/cystitis MSSA 05/27/2025(resistant ampicillin/Levaquin intermediate tetracycline)�treated with IV cefepime x3 days then Levaquin 4days thought due to squamous cells
Hgb 7.1 < 8.8 on 06/04 baseline appears to be 9-10.5
Check iron panel, B12, folate
Transfuse 1 unit PRBC
-Type and screen
- Consult Urology
- IV cefepime
- May give aspirin hold Plavix
Follow CBC
- CT abdomen pelvis:
1 Diffuse thickening and increased enhancement of the bladder with stranding of the perivesical fat, findings highly suggestive of cystitis.
2. Layer of increased density within the posterior aspect of the urinary bladder, which is likely blood products.
3. There is moderate to severe right pelvicalyceal and ureteral dilation extending to the right ureterovesical junction.
Moderate left pelvicalyceal ureteral dilation extending to the ureterovesical junction. Findings appear similar to examination of May 24, 2025. Question whether there is obstruction on the basis of cystitis.
No evidence for obstructing ureteral calculi.
4. In the right anterior groin and inguinal region, focal soft tissue mass which is new from CT examination May 24, 2025. Etiology for this mass is uncertain, possibly a hematoma.
Please correlate clinically. Consideration for follow-up imaging.
5. Moderate distention of the rectum with stool, with findings of mild stercoral colitis. No evidence for perforation.
6. Cholelithiasis. No evidence for acute cholecystitis. No evidence for biliary ductal dilation
PRIOR:
05/24/2025 CT abdomen: CT showed Bilateral ascending urinary tract infection.
Severe distention of the right ureter and moderate distention of the left ureter. Moderate distention of the right intrarenal collecting system and mild distention of the left intrarenal collecting system.
#Hx stage II left medial heel pressure injury POA 05/26/2025, unstageable right lateral heel pressure
#PAD
#-Status post angioplasty/stenting right leg on 05/27/2025 and left side on 06/02/2025
-cont asa
- Will hold Plavix until okay from urology and hemoglobin status
#Right knee pain/advanced osteoarthritis
-Continue lidocaine patch, Tylenol
#History of MS, wheelchair-bound
-Continue prednisone 5 mg daily
- PT
#HTN�benign
BP 135/57
Continue Norvasc 2.5 mg daily
#Depression
-Continue duloxetine 40 mg daily
#Glaucoma
Continue latanoprost, dorzolamide/timolol, brimonidine both eyes twice daily
#Insomnia
Continue melatonin
DVT prophylaxis
SCDs
DNR
[2025-07-01 17:02] LABS: Iron 57 ug/dl (37-170)
--- NOTE | 2025-07-01 17:03 | CM ---
CM reviewed chart and met with pt bedside in ED. Lives in LTC at [facility]. Daughter visits daily.
Needs assistance with ADLs and personal care, no longer walks d/t MS, staff assists her to Wheelchair.
Confirms prescription coverage.
PCP: David Lira
Pharmacy: [facility] through [facility]
Anticipate return to [facility] when medically stable.
[2025-07-01 17:12] LABS: Total Iron Binding Capacity 207 ug/dl (265-497)
[2025-07-01] MEDS: STERILE WATER FOR INJECTION 10 ML IV (17:15)
[2025-07-01] MEDS: MAXIPIME 1000 MG IV (17:15)
--- NOTE | 2025-07-01 17:46 | W.PN.URO.CBU ---
Today's Communication / Plan
-
PLAN PER HSPITALIST
Assessment / Plan
-
HEMATURI AIN PT WITH PLAVIX AND NEUROGENIC BLADER FROM MS CONSIDER STOPPING PLAVIC-[X NO ORTIZ FOR NOW AND AWAIT CXS BUT IV BROAD SPECTRUM ABS UNTIL TARGETED
Diagnosis
-
Date of Service: July 01, 2025
-
Patient Diagnosis:
hemorrhagic cystitis with MDRO IN T WITH NEUROGENIC BLADDER FROM MS
Post Op Day:
Subjective
-
HEMATURIA NO FWEVR CHILLS OR COLIC
Objective
-
Vital Signs
Temp Pulse Resp BP Pulse Ox
98.0 F 81 22 128/53 97
07/01/25 17:36 07/01/25 17:36 07/01/25 17:36 07/01/25 17:36 07/01/25 17:15
Intake and Output
06/30/25 07/01/25 07/02/25
06:59 06:59 06:59
Intake Total 0 / 0
Balance 0 / 0
Intake:
Blood Product Amount Infused ( 0 / 0
mL)
Packed Rbc Leukoreduced Unit 0 / 0
[id number]
Laboratory Results
07/01/25 12:22
07/01/25 12:22
Review of Systems
-
: Bleeding
Physical Exam
-
General - well developed, well nourished, no acute distress N ON TOXIC
Chest - clear bilaterally
Abdomen - soft, non-tender, positive bowel sounds, no CVAT, no incisional pain or distention
Genitalia - normal
Rectal - normal
Skin - warm & dry with no rash
Neuro - AOx3, CONTRAVRED BED BOUND
Extremities - no clubbing, no cyanosis, no edema
Incision - clean, dry
Dressing - clean, dry, intact
Care Review
Data Reviewed
Discussed with: Nursing
CT Scan: Image Pers Reviewed
[2025-07-01 18:01] LABS: Ferritin 144.0 ng/ml (11.1-264.0)
[2025-07-01 18:33] LABS: Folate 9.0 ng/ml (2.76-20); Vitamin B12 255 pg/ml (239-931)
[2025-07-01] MEDS: REMOVE LIDOCAINE PATCH 1 PATCH REMOVE (20:41)
[2025-07-01] MEDS: DELTASONE 5 MG PO (20:41)
[2025-07-01] MEDS: MYCOSTATIN CREAM 1 APPLIC TOPICAL (21:33)
[2025-07-01] MEDS: TRUSOPT 2% OPHTHALMIC SOLUTION 1 DROP BOTH EYES (21:33)
[2025-07-01] MEDS: TIMOPTIC 0.5% OPHTHALMIC SOLUTION 1 DROP BOTH EYES (21:34)
[2025-07-01] MEDS: ALPHAGAN 0.2% EYE DROPS 1 DROP BOTH EYES (21:34)
[2025-07-01] MEDS: TYLENOL 1000 MG PO (21:35)
[2025-07-01] MEDS: XALATAN OPHTHALMIC SOLUTION 1 DROP LEFT EYE (21:35)
--- NOTE | 2025-07-01 22:30 | PTCARENOTE ---
Patient right arm is contracted and cannot lift it as high as the left. Pt cannot tell this RN if this is new or not, she is oriented but forgetful. Pt has MS and is wheelchair bound at baseline. She was here on 05/22 for PAD and underwent stenting.
She was having R LE pain and tingling with that, and that is continuing now. BODY MAN Bipin Botello notified and arrived to floor. Vitals stable. Will continue to monitor.
[2025-07-01] MEDS: MELATONIN 1 MG PO (23:13)
[2025-07-02] MEDS: STERILE WATER FOR INJECTION 10 ML IV ×3 (02:09→17:36)
[2025-07-02] MEDS: MAXIPIME 1000 MG IV ×3 (02:10→17:37)
[2025-07-02 03:00] VITALS: BP 121/55
[2025-07-02 05:38] LABS: Hematocrit 24.6 % (37.0-47.0); Hemoglobin 8.1 g/dL (12.0-16.0); Mean Corp Hgb Conc. 32.9 g/dL (33.0-37.0); Mean Corpuscular Volume 92.1 fL (81.0-99.0); Nucleated Red Blood Cells % 0 %; Platelet Count 436 10^3/uL (130-400); Red Cell Dist. Width 18.2 % (11.5-14.5)
[2025-07-02 05:50] LABS: ALT (SGPT) 11 U/L (0-35); AST (SGOT) 13 U/L (14-36); Albumin 2.9 g/dl (3.5-5.0); Alkaline Phosphatase 104 U/L (38-126); Blood Urea Nitrogen 18 mg/dl (7-17); Calcium 9.0 mg/dl (8.4-10.2); Carbon Dioxide 23 mmol/L (22-30); Chloride 110 mmol/L (98-107); Estimated Creatinine Clearance 51 ml/min; Glucose 118 mg/dl (70-99); Potassium 4.3 mmol/L (3.5-5.1); Sodium 137 mmol/L (135-145); Total Protein 5.4 g/dl (6.3-8.2); eGFR > 60.00
[2025-07-02 06:00] VITALS: BMI 19.1
[2025-07-02 07:31] VITALS: BP 148/61
[2025-07-02] MEDS: LIDOCAINE 4% PATCH 1 PATCH TOPICAL (08:47)
[2025-07-02] MEDS: NORVASC 2.5 MG PO (08:49)
[2025-07-02] MEDS: TYLENOL 650 MG PO ×2 (08:49→15:39)
[2025-07-02] MEDS: ASPIR LOW (ENTERIC COATED) 81 MG PO (08:49)
[2025-07-02] MEDS: PLAVIX PO (08:50)
[2025-07-02] MEDS: FEOSOL 325 MG PO (08:50)
[2025-07-02] MEDS: TRUSOPT 2% OPHTHALMIC SOLUTION 1 DROP BOTH EYES ×2 (08:51→19:38)
[2025-07-02] MEDS: TIMOPTIC 0.5% OPHTHALMIC SOLUTION 1 DROP BOTH EYES ×2 (08:51→19:37)
[2025-07-02] MEDS: MYCOSTATIN CREAM 1 APPLIC TOPICAL ×2 (08:52→19:36)
[2025-07-02] MEDS: ALPHAGAN 0.2% EYE DROPS 1 DROP BOTH EYES ×2 (08:52→19:36)
--- NOTE | 2025-07-02 08:53 | PTOTSP ---
Received order for PT from the ED and reviewed chart and noted pt lives in snf care at [facility], nonambulatory, wheel-chair bound. No skilled PT needs as pt is at baseline. Nursing staff to get pt OOB daily as part of routine basic
nursing care. PT will sign off.
--- NOTE | 2025-07-02 10:16 | W.PN.URO.CBU ---
Today's Communication / Plan
-
plan oper hospitalist
Assessment / Plan
-
HEMATURI AIN PT WITH PLAVIX AND NEUROGENIC BLADER FROM MS CONSIDER STOPPING PLAVIC-[X NO ORTIZ FOR NOW AND AWAIT CXS BUT IV BROAD SPECTRUM ABS UNTIL TARGETED
Diagnosis
-
Date of Service: July 02, 2025
-
Patient Diagnosis:
Post Op Day:
Patient Diagnosis:
hemorrhagic cystitis with MDRO IN T WITH NEUROGENIC BLADDER FROM MS
Post Op Day:
Subjective
-
feels well
Objective
-
Vital Signs
Temp Pulse Resp BP Pulse Ox
98.2 F 68 18 148/61 97
07/02/25 07:31 07/02/25 08:49 07/02/25 07:31 07/02/25 08:49 07/02/25 07:31
Intake and Output
07/01/25 07/02/25 07/03/25
06:59 06:59 06:59
Intake Total 250 / 250
Balance 250 / 250
Intake:
Blood Product Amount Infused ( 250 / 250
mL)
Packed Rbc Leukoreduced Unit 250 / 250
[id number]
Other:
How many times incontinent 3
SATURATED amount urine
Laboratory Results
07/02/25 05:10
07/02/25 05:10
Review of Systems
-
: Difficulty Voiding and Dark Urine
Physical Exam
-
General - well developed, well nourished, no acute distress nontoxic
Chest - clear bilaterally
Abdomen - soft, non-tender, positive bowel sounds, no CVAT, no incisional pain or distention
Genitalia - normal
Rectal - normal
Skin - warm & dry with no
Extremities - no clubbing, no cyanosis, no edema
Incision - clean, dry
Dressing - clean, dry, intact
[2025-07-02 10:54] VITALS: BP 118/55
--- NOTE | 2025-07-02 12:09 | W.PN.HOSP.TC ---
Today's Communication/Plan
-
Assessment / Plan
Assessment / Plan
General: No Apparent Distress, Comfortable and Conversant
HEENT: NormoCephalic, Moist mucous membranes, Atraumatic
Respiratory: Clear and Non Labored Respirations
Cardiac: S1/S2 and Regular Rhythm; No Rub or Gallop
GI: Soft, Non Tender, Non Distended and Normal Bowel Sounds
Musculoskeletal: No Edema, no deformity
Skin: Warm and dry
: NO Fish
Neuro: Awake, Alert, Nonfocal/grossly intact
Psych: Calm and Intact Judgment/Insight
Ms. Meraz is an 84-year-old female with a medical history of peripheral to disease (status post bilateral lower extremity stenting), multiple sclerosis (wheelchair-bound), recent cystitis and pyelonephritis, hypertension, and glaucoma who
presented from her halfway due to hematuria. She was treated for a UTI during her recent admission in May 2025, during which time urine culture was grew MSSA resistant to Levaquin. Currently, she has been treated with cefepime and culture
results are pending. Due to her gross hematuria, her Plavix is being held however she has been continued on low-dose aspirin. She has been admitted for further evaluation and management.
Hematuria:
- Suspect secondary to cystitis with CT evidence of bladder wall thickening and blood clots within the bladder
- Continue antibiotics with cefepime for now
Follow-up urine cultures
- Urology following, currently no plans for intervention
- Holding Plavix due to bleeding, continue antiplatelets and low-dose aspirin considering fairly recent Peripheral artery stenting in her lower extremities
- Transfuse 1 unit PRBCs with improvement in hemoglobin from 7.1 up to 8.1, will continue to monitor hemoglobin and transfuse further as needed
Hypertension:
- Continue home amlodipine 2.5 mg daily
Peripheral arterial disease:
- Status post arterial lithotripsy and stenting bilateral lower extremities recently (right 05/27/2025 and left 06/02/2025)
- Holding Plavix due to hematuria
- Continuing low-dose aspirin
Multiple sclerosis:
- Continue prednisone 5 mg daily
- Wheelchair-bound
DVT prophylaxis: SCDs
CODE STATUS: DNR
Total time spent on today's encounter was 45 minutes.
Anticipated Discharge: 24 - 48 hours
Subjective/Interval History
-
Date of Service: July 02, 2025
Patient was seen and examined at bedside this morning. Feeling generally well. She received 1 unit PRBCs with improvement in her hemoglobin from 7.1 up to 8.1. Holding Plavix and continuing aspirin. She is not having any dysuria or pelvic
discomfort.
Objective Data
-
Labs:
Laboratory Results
07/02/25
05:10
WBC 6.8
Hgb 8.1 L
Hct 24.6 L
Plt Count 436 H
Sodium 137
Potassium 4.3
Chloride 110 H
Carbon Dioxide 23
BUN 18 H
Creatinine 0.6
Glucose 118 H
Calcium 9.0
Total Bilirubin 0.6
AST 13 L
ALT 11
Alkaline Phosphatase 104
Vital Signs:
Vital Signs
Temp Pulse Resp BP Pulse Ox
98.0 F 67 18 118/55 99
07/02/25 10:54 07/02/25 10:54 07/02/25 10:54 07/02/25 10:54 07/02/25 10:54
I&O
07/01/25 07/02/25 07/03/25
06:59 06:59 06:59
Intake Total 250 / 250
Balance 250 / 250
Review of Systems
-
History Source: Patient
All other systems: Reviewed and negative
Physical Exam
-
General: No Apparent Distress
--- NOTE | 2025-07-02 14:37 | WOUNDNOTE ---
[facility] RN note: Patient admitted with urinary symptoms.
See H&P for complete history.
PMH:84-year-old female with a past medical history of multiple sclerosis (wheelchair-bound at baseline), hypertension, glaucoma who presents to the emergency department via EMS for evaluation of right lower extremity pain. Patient lives [facility] in [place]. Last admission May.
Wound Location and type/assessment: Patient admitted with: R lateral heel unstageable PI, mostly covered with brown moist yellow and brown eschar, edges not attached. L heel with healed PI when compared to previous admission. Periwound with
Calazime and dry. Sacrum with stage 2 PI and MASD on buttocks.
Appetite: Good.
Pressure redistribution devices in place: Spoke to PRETTY Wheeler who will move patient to air bed that is already on the floor. Fiber filled boots ordered for right heel.
Plan: Recommend continue Santyl for right heel, adaptic and dry dressing daily. Calazime to open areas on sacrum. Teaching done with patient and nurse regarding plan. Patient agreeable but appears to be forgetful at times. Will update discharge
instructions. Will confirm orders with hospitalist and updated nurse. Updated care plan and will follow as needed.
Note to case management of equipment requested for discharge: wound care.
Recommend follow up with vascular MD.
[2025-07-02 15:30] VITALS: BP 157/57
[2025-07-02] MEDS: SANTYL OINTMENT 1 APPLIC TOPICAL (15:38)
--- NOTE | 2025-07-02 16:05 | CM ---
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 Jess[place] is nonambulatory, wheel-chair bound, Na-lifted to her power chair at the facility.
Plan: Discharge to [facility] LTC when medically ready..
[2025-07-02] MEDS: DELTASONE 5 MG PO (17:36)
[2025-07-02 19:29] VITALS: BP 129/66
[2025-07-02] MEDS: REMOVE LIDOCAINE PATCH 1 PATCH REMOVE (19:36)
[2025-07-02] MEDS: XALATAN OPHTHALMIC SOLUTION 1 DROP LEFT EYE (21:07)
[2025-07-02] MEDS: TYLENOL 1000 MG PO (21:07)
[2025-07-02 22:56] VITALS: BP 119/56
[2025-07-02] MEDS: MELATONIN 3 MG PO (23:12)
[2025-07-03] MEDS: MAXIPIME 1000 MG IV ×2 (01:57→10:05)
[2025-07-03] MEDS: STERILE WATER FOR INJECTION 10 ML IV ×2 (01:57→10:06)
[2025-07-03 03:03] VITALS: BP 154/62
[2025-07-03 06:24] LABS: Hematocrit 25.1 % (37.0-47.0); Hemoglobin 8.3 g/dL (12.0-16.0); Mean Corp Hgb Conc. 33.1 g/dL (33.0-37.0); Mean Corpuscular Volume 91.9 fL (81.0-99.0); Nucleated Red Blood Cells % 0.3 %; Platelet Count 473 10^3/uL (130-400); Red Cell Dist. Width 17.7 % (11.5-14.5)
[2025-07-03 06:28] LABS: ALT (SGPT) 12 U/L (0-35); AST (SGOT) 15 U/L (14-36); Albumin 3.1 g/dl (3.5-5.0); Alkaline Phosphatase 106 U/L (38-126); Blood Urea Nitrogen 20 mg/dl (7-17); Calcium 9.4 mg/dl (8.4-10.2); Carbon Dioxide 23 mmol/L (22-30); Chloride 111 mmol/L (98-107); Estimated Creatinine Clearance 50 ml/min; Glucose 104 mg/dl (70-99); Potassium 4.0 mmol/L (3.5-5.1); Sodium 139 mmol/L (135-145); Total Protein 5.8 g/dl (6.3-8.2); eGFR > 60.00
[2025-07-03 07:24] VITALS: BP 176/63
--- NOTE | 2025-07-03 07:46 | W.PN.URO.CBU ---
Today's Communication / Plan
-
NO CHNAGES
Assessment / Plan
-
HEMATURI AIN PT WITH PLAVIX AND NEUROGENIC BLADER FROM MS IMPROVING LABS STABLE WOULD D/C ONCE TARGETED ORGANISM IS IDEMTIFIES
Diagnosis
-
Date of Service: July 03, 2025
-
Patient Diagnosis:
Post Op Day:
Patient Diagnosis:
Post Op Day:
Patient Diagnosis:
hemorrhagic cystitis with MDRO IN T WITH NEUROGENIC BLADDER FROM MS
Post Op Day:
Subjective
-
FEELS BETTER DID NOT NOTICE HEMATURIA
Objective
-
Vital Signs
Temp Pulse Resp BP Pulse Ox
97.9 F 60 16 176/63 100
07/03/25 07:24 07/03/25 07:24 07/03/25 07:24 07/03/25 07:24 07/03/25 07:24
Intake and Output
07/02/25 07/03/25 07/04/25
06:59 06:59 06:59
Intake Total 250 / 250 600 / 600
Balance 250 / 250 600 / 600
Intake:
Oral fluids 600 / 600
Blood Product Amount Infused ( 250 / 250
mL)
Packed Rbc Leukoreduced Unit 250 / 250
[id number]
Other:
Number of approximated MODERATE 1
amounts of urine
How many times incontinent 1
MODERATE amount urine
How many times incontinent 3
SATURATED amount urine
Laboratory Results
07/03/25 05:23
07/03/25 05:23
Review of Systems
-
: Dysuria
Physical Exam
-
General - well developed, well nourished, no acute distress
Chest - clear bilaterally
Abdomen - soft, non-tender, positive bowel sounds, no CVAT, no incisional pain or distention
Genitalia - normal
Rectal - normal
Skin - warm & dry with no rash
Neuro -MS
Extremities - no clubbing, no cyanosis, no edema
Incision - clean, dry
Dressing - clean, dry, intact
Care Review
Data Reviewed
Discussed with: Nursing
[2025-07-03] MEDS: TYLENOL 650 MG PO ×2 (10:06→15:48)
[2025-07-03] MEDS: NORVASC 2.5 MG PO (10:06)
[2025-07-03] MEDS: FEOSOL 325 MG PO (10:07)
[2025-07-03] MEDS: ASPIR LOW (ENTERIC COATED) 81 MG PO (10:07)
[2025-07-03] MEDS: TIMOPTIC 0.5% OPHTHALMIC SOLUTION 1 DROP BOTH EYES ×2 (10:08→20:32)
[2025-07-03] MEDS: TRUSOPT 2% OPHTHALMIC SOLUTION 1 DROP BOTH EYES ×2 (10:08→20:32)
[2025-07-03] MEDS: MYCOSTATIN CREAM 1 APPLIC TOPICAL ×2 (10:09→20:33)
[2025-07-03] MEDS: ALPHAGAN 0.2% EYE DROPS 1 DROP BOTH EYES ×2 (10:09→20:32)
[2025-07-03] MEDS: LIDOCAINE 4% PATCH 1 PATCH TOPICAL (10:09)
[2025-07-03] MEDS: SANTYL OINTMENT 1 APPLIC TOPICAL (10:10)
[2025-07-03 10:34] VITALS: BP 143/81
[2025-07-03 10:51] VITALS: BP 143/81
--- NOTE | 2025-07-03 12:39 | W.PN.HOSP.TC ---
Addendum entered and electronically signed by Uri Angeles, 07/03/25 14:04:
Additional diagnoses/corrections:
- Cystitis is acute on chronic
- R lateral heel unstageable PI, mostly covered with brown moist yellow and brown eschar, edges not attached. L heel with healed PI when compared to previous admission, Sacrum with stage 2 PI and MASD on buttocks.
Addendum entered and electronically signed by Uri Angeles, DO 07/03/25 12:42:
Correction: Antibiotics transitioned to Zosyn, not cefazolin
Original Note:
Today's Communication/Plan
-
Assessment / Plan
Assessment / Plan
General: No Apparent Distress, Comfortable and Conversant
HEENT: NormoCephalic, Moist mucous membranes, Atraumatic
Respiratory: Clear and Non Labored Respirations
Cardiac: S1/S2 and Regular Rhythm; No Rub or Gallop
GI: Soft, Non Tender, Non Distended and Normal Bowel Sounds
Musculoskeletal: No Edema, no deformity
Skin: Warm and dry
: NO Fish
Neuro: Awake, Alert, Nonfocal/grossly intact
Psych: Calm and Intact Judgment/Insight
Ms. Meraz is an 84-year-old female with a medical history of peripheral to disease (status post bilateral lower extremity stenting), multiple sclerosis (wheelchair-bound), recent cystitis and pyelonephritis, hypertension, and glaucoma who
presented from her [place] [facility] due to hematuria. She was treated for a UTI during her recent admission in May 2025, during which time urine culture was grew MSSA resistant to Levaquin. Currently, she has been treated with cefepime and culture
results are pending. Due to her gross hematuria, her Plavix is being held however she has been continued on low-dose aspirin. She has been admitted for further evaluation and management.
Hematuria:
- Suspect secondary to cystitis with CT evidence of bladder wall thickening and blood clots within the bladder
- Urine cultures growing Enterococcus
- Transitioning antibiotics to cefazolin, follow-up final cultures and sensitivities
- Urology following, currently no plans for intervention
- Holding Plavix due to bleeding, continue antiplatelets and low-dose aspirin considering fairly recent Peripheral artery stenting in her lower extremities
- Transfused 1 unit PRBCs with improvement in hemoglobin from 7.1 up to 8.1, hemoglobin remained stable at 8.3 today
- Will continue to monitor hemoglobin and transfuse further as needed
Hypertension:
- Continue home amlodipine 2.5 mg daily
Peripheral arterial disease:
- Status post arterial lithotripsy and stenting bilateral lower extremities recently (right 05/27/2025 and left 06/02/2025)
- Holding Plavix due to hematuria
- Continuing low-dose aspirin
Multiple sclerosis:
- Continue prednisone 5 mg daily
- Wheelchair-bound
DVT prophylaxis: SCDs
CODE STATUS: DNR
Total time spent on today's encounter was 43 minutes.
Anticipated Discharge: 24 - 48 hours
Subjective/Interval History
-
Date of Service: July 03, 2025
Patient was seen and examined at bedside this morning. Feeling well. Urine cultures growing Enterococcus.
Objective Data
-
Labs:
Laboratory Results
07/03/25
05:23
WBC 6.9
Hgb 8.3 L
Hct 25.1 L
Plt Count 473 H
Sodium 139
Potassium 4.0
Chloride 111 H
Carbon Dioxide 23
BUN 20 H
Creatinine 0.6
Glucose 104 H
Calcium 9.4
Total Bilirubin 0.5
AST 15
ALT 12
Alkaline Phosphatase 106
Vital Signs:
Vital Signs
Temp Pulse Resp BP Pulse Ox
97.8 F 86 16 143/81 100
07/03/25 10:34 07/03/25 10:34 07/03/25 10:34 07/03/25 10:34 07/03/25 10:34
I&O
07/02/25 07/03/25 07/04/25
06:59 06:59 06:59
Intake Total 250 / 250 600 / 600
Balance 250 / 250 600 / 600
Review of Systems
-
History Source: Patient
All other systems: Reviewed and negative
Physical Exam
-
General: No Apparent Distress
[2025-07-03] MEDS: ZOSYN 50 IV ×2 (13:30→17:03)
--- NOTE | 2025-07-03 13:40 | PN.CDI ---
CDI
- -
CDI:
Physician Documentation Request
Admit Date: 07/01/25 16:20
Dear Doctor Karthik
Patient is admitted for 'hematuria:Suspect secondary to cystitis...'
Please clarify which of the following accurately represents the acuity of the cystitis:
____ Acute
Acute on Chronic
Chronic
____ Other
Use of terms such as suspected, likely, concern for, or probable (associated with a specific diagnosis that is being evaluated, monitored, or treated as if it exists) are acceptable and can be coded in the inpatient setting, when documented at the
time of discharge.
Thank you,
Amparo Rich RN, BSN
CDI Specialist
tiger text
Please use your independent medical judgment in providing your response.
--- NOTE | 2025-07-03 13:43 | PN.CDI ---
CDI
- -
CDI:
Physician Documentation Request
Admit Date: 07/01/25 16:20
Dear Doctor Karthik,
07/02 [facility] notes state ' R lateral heel unstageable PI, mostly covered with brown moist yellow and brown eschar, edges not attached. L heel with healed PI when compared to previous admission.... Sacrum with stage 2 PI and MASD on buttocks.'
Physician documentation of the type and location of wounds is required for compliant documentation. Based on the above clinical findings and your assessment, please provide the following in your progress note:
1. Location of the ulcer/wound, including laterality.
2. Type (etiology) of ulcer/wound:
- Pressure (decubitus) ulcer
- Arterial (ischemic) ulcer
- Traumatic wound
- Venous stasis ulcer
- Other
Use of terms such as suspected, likely, concern for, or probable (associated with a specific diagnosis that is being evaluated, monitored, or treated as if it exists) are acceptable and can be coded in the inpatient setting, when documented at the
time of discharge.
Thank you,
Amparo Rich RN, BSN
CDI Specialist
tiger text
Please use your independent medical judgment in providing your response.
*Source: National Pressure Ulcer Advisory Panel (NPUAP)
[2025-07-03 15:14] VITALS: BP 130/66
[2025-07-03 15:44] VITALS: BMI 19.1
[2025-07-03] MEDS: DELTASONE 5 MG PO (17:03)
[2025-07-03 19:27] VITALS: BP 135/53
[2025-07-03] MEDS: REMOVE LIDOCAINE PATCH 1 PATCH REMOVE (20:36)
[2025-07-03] MEDS: TYLENOL 1000 MG PO (22:01)
[2025-07-03] MEDS: XALATAN OPHTHALMIC SOLUTION 1 DROP LEFT EYE (22:02)
[2025-07-04 00:26] VITALS: BP 113/49
[2025-07-04] MEDS: ZOSYN 50 IV ×4 (00:32→17:05)
[2025-07-04 03:22] VITALS: BP 123/49
[2025-07-04 07:16] VITALS: BP 160/50
[2025-07-04 07:26] LABS: Glucose - Point of Care 89 mg/dl (70-99)
[2025-07-04] MEDS: ASPIR LOW (ENTERIC COATED) 81 MG PO (08:23)
[2025-07-04] MEDS: TYLENOL 650 MG PO ×2 (08:23→17:03)
[2025-07-04] MEDS: NORVASC 2.5 MG PO (08:24)
[2025-07-04] MEDS: FEOSOL 325 MG PO (08:24)
[2025-07-04] MEDS: SANTYL OINTMENT 1 APPLIC TOPICAL (08:25)
[2025-07-04] MEDS: ALPHAGAN 0.2% EYE DROPS 1 DROP BOTH EYES ×2 (08:25→21:13)
[2025-07-04] MEDS: TIMOPTIC 0.5% OPHTHALMIC SOLUTION 1 DROP BOTH EYES ×2 (08:25→21:12)
[2025-07-04] MEDS: TRUSOPT 2% OPHTHALMIC SOLUTION 1 DROP BOTH EYES ×2 (08:25→21:13)
[2025-07-04] MEDS: MYCOSTATIN CREAM 1 APPLIC TOPICAL ×2 (08:26→21:13)
[2025-07-04] MEDS: LIDOCAINE 4% PATCH 1 PATCH TOPICAL (08:27)
[2025-07-04 09:13] LABS: Hematocrit 28.4 % (37.0-47.0); Hemoglobin 8.6 g/dL (12.0-16.0); Mean Corp Hgb Conc. 30.3 g/dL (33.0-37.0); Mean Corpuscular Volume 97.3 fL (81.0-99.0); Nucleated Red Blood Cells % 0 %; Platelet Count 533 10^3/uL (130-400); Red Cell Dist. Width 17.8 % (11.5-14.5)
[2025-07-04 09:41] LABS: ALT (SGPT) 11 U/L (0-35); AST (SGOT) 16 U/L (14-36); Albumin 3.2 g/dl (3.5-5.0); Alkaline Phosphatase 97 U/L (38-126); Blood Urea Nitrogen 20 mg/dl (7-17); Calcium 9.1 mg/dl (8.4-10.2); Carbon Dioxide 26 mmol/L (22-30); Chloride 108 mmol/L (98-107); Estimated Creatinine Clearance 30 ml/min; Glucose 86 mg/dl (70-99); Potassium 4.3 mmol/L (3.5-5.1); Sodium 138 mmol/L (135-145); Total Protein 5.8 g/dl (6.3-8.2); eGFR 54.87
--- NOTE | 2025-07-04 11:02 | W.PN.HOSP.TC ---
Today's Communication/Plan
-
Assessment / Plan
Assessment / Plan
General: No Apparent Distress, Comfortable and Conversant
HEENT: NormoCephalic, Moist mucous membranes, Atraumatic
Respiratory: Clear and Non Labored Respirations
Cardiac: S1/S2 and Regular Rhythm; No Rub or Gallop
GI: Soft, Non Tender, Non Distended and Normal Bowel Sounds
Musculoskeletal: No Edema, no deformity
Skin: Warm and dry
: NO Fish
Neuro: Awake, Alert, Nonfocal/grossly intact
Psych: Calm and Intact Judgment/Insight
Ms. Meraz is an 84-year-old female with a medical history of peripheral to disease (status post bilateral lower extremity stenting), multiple sclerosis (wheelchair-bound), recent cystitis and pyelonephritis, hypertension, and glaucoma who
[facility] her [facility]. She was treated for a UTI during her recent admission in May 2025, during which time urine culture was grew MSSA resistant to Levaquin. Currently, she has been treated with cefepime and culture
results are pending. Due to her gross hematuria, her Plavix is being held however she has been continued on low-dose aspirin. She has been admitted for further evaluation and management.
Hematuria:
- Suspect secondary to cystitis with CT evidence of bladder wall thickening and blood clots within the bladder
- Urine cultures growing Enterococcus
- Transitioned antibiotics to Zosyn, follow-up final cultures and sensitivities
- Urology following, currently no plans for intervention
- Have been holding Plavix due to bleeding, continue antiplatelets with low-dose aspirin considering fairly recent Peripheral artery stenting in her lower extremities
- Transfused 1 unit PRBCs with improvement in hemoglobin from 7.1 up to 8.1, hemoglobin remained stable at 8.6 today
- Will continue to monitor hemoglobin and transfuse further as needed
- Will likely restart Plavix in the next 24 hours, if she starts rebleeding then will need to discontinue
Hypertension:
- Continue home amlodipine 2.5 mg daily
Peripheral arterial disease:
- Status post arterial lithotripsy and stenting bilateral lower extremities recently (right 05/27/2025 and left 06/02/2025)
- Holding Plavix due to hematuria, will likely restart Plavix in next 24 hours
- Continuing low-dose aspirin
Multiple sclerosis:
- Continue prednisone 5 mg daily
- Wheelchair-bound
DVT prophylaxis: SCDs
CODE STATUS: DNR
Total time spent on today's encounter was 41 minutes.
Anticipated Discharge: 24 - 48 hours
Subjective/Interval History
-
Date of Service: July 04, 2025
Patient was seen and examined at bedside this morning. Comfortable. Remains on Zosyn for Enterococcus awaiting sensitivities.
Objective Data
-
Labs:
Laboratory Results
07/04/25
06:15
WBC 7.5
Hgb 8.6 L
Hct 28.4 L
Plt Count 533 H
Sodium 138
Potassium 4.3
Chloride 108 H
Carbon Dioxide 26
BUN 20 H
Creatinine 1.0
Glucose 86
Calcium 9.1
Total Bilirubin 0.4
AST 16
ALT 11
Alkaline Phosphatase 97
Vital Signs:
Vital Signs
Temp Pulse Resp BP Pulse Ox
97.7 F 53 16 160/50 100
07/04/25 07:16 07/04/25 07:16 07/04/25 07:16 07/04/25 07:16 07/04/25 03:22
I&O
07/03/25 07/04/25 07/05/25
06:59 06:59 06:59
Intake Total 600 / 600 540 / 540
Balance 600 / 600 540 / 540
Review of Systems
-
History Source: Patient
All other systems: Reviewed and negative
Physical Exam
-
General: No Apparent Distress
[2025-07-04 11:20] VITALS: BP 140/57
[2025-07-04 11:57] LABS: Glucose - Point of Care 87 mg/dl (70-99)
--- NOTE | 2025-07-04 14:21 | W.PN.URO.CBU ---
Today's Communication / Plan
-
Consider shah catheter
Continue abx pending cultures
Assessment / Plan
-
84F admitted with recurrent UTI and gross hematuria
Bilateral hydroureteronephosis
- Likely neurogenic bladder from MS which has not been worked up
- Bilateral hydroureteronephrosis which has worsened even since last admission is likely due to ureteral reflux is a major risk factor for recurrent infections and bleeding
- Recommend she be discharged with a shah catheter pending outpatient workup for bladder function
- Patient hesitant to have a shah. Alternatively it would be acceptable to wait until further workup
- Recommend 10 day total abx course for complicated UTI
- Final Cx pending
- Recommend starting methenamine hippurate 1g BID after completing antibiotic course to prevent recurrent UTIs
Diagnosis
-
Date of Service: July 04, 2025
-
Patient Diagnosis:
Urinary retention
recurrent UTI
Bilateral hydronephrosis
Post Op Day:
Subjective
-
feeling well
no complaints
Objective
-
Vital Signs
Temp Pulse Resp BP Pulse Ox
98.1 F 59 17 140/57 95
07/04/25 11:20 07/04/25 11:20 07/04/25 11:20 07/04/25 11:20 07/04/25 11:20
Intake and Output
07/03/25 07/04/25 07/05/25
06:59 06:59 06:59
Intake Total 600 / 600 540 / 540
Balance 600 / 600 540 / 540
Intake:
Oral fluids 600 / 600 540 / 540
Other:
Number of approximated MODERATE 1
amounts of urine
How many times incontinent 1
SMALL amount urine
How many times incontinent 1 3
MODERATE amount urine
How many times incontinent 3 2
SATURATED amount urine
Laboratory Results
07/04/25 06:15
07/04/25 06:15
Physical Exam
-
General - well developed, well nourished, no acute distress
Chest - clear, unlabored
[2025-07-04 14:38] VITALS: BP 131/64
[2025-07-04 16:50] LABS: Glucose - Point of Care 178 mg/dl (70-99)
[2025-07-04] MEDS: DELTASONE 5 MG PO (17:04)
[2025-07-04 20:59] LABS: Glucose - Point of Care 210 mg/dl (70-99)
[2025-07-04] MEDS: TYLENOL 1000 MG PO (21:12)
[2025-07-04] MEDS: XALATAN OPHTHALMIC SOLUTION 1 DROP LEFT EYE (21:12)
[2025-07-04] MEDS: REMOVE LIDOCAINE PATCH 1 PATCH REMOVE (21:13)
[2025-07-04 23:00] VITALS: BP 101/46
[2025-07-05] MEDS: ZOSYN 50 IV ×4 (00:29→19:39)
[2025-07-05 07:07] LABS: Hematocrit 27.1 % (37.0-47.0); Hemoglobin 8.7 g/dL (12.0-16.0); Mean Corp Hgb Conc. 32.1 g/dL (33.0-37.0); Mean Corpuscular Volume 94.4 fL (81.0-99.0); Nucleated Red Blood Cells % 0 %; Platelet Count 562 10^3/uL (130-400); Red Cell Dist. Width 17.1 % (11.5-14.5)
[2025-07-05 07:30] VITALS: BP 100/65
[2025-07-05 07:49] LABS: ALT (SGPT) 12 U/L (0-35); AST (SGOT) 19 U/L (14-36); Albumin 3.4 g/dl (3.5-5.0); Alkaline Phosphatase 96 U/L (38-126); Blood Urea Nitrogen 21 mg/dl (7-17); Calcium 8.8 mg/dl (8.4-10.2); Carbon Dioxide 22 mmol/L (22-30); Chloride 109 mmol/L (98-107); Estimated Creatinine Clearance 34 ml/min; Glucose 125 mg/dl (70-99); Potassium 4.7 mmol/L (3.5-5.1); Sodium 136 mmol/L (135-145); Total Protein 5.9 g/dl (6.3-8.2); eGFR > 60.00
[2025-07-05 08:10] LABS: Glucose - Point of Care 98 mg/dl (70-99)
[2025-07-05] MEDS: MYCOSTATIN CREAM 1 APPLIC TOPICAL ×2 (09:42→21:54)
[2025-07-05] MEDS: ALPHAGAN 0.2% EYE DROPS 1 DROP BOTH EYES ×2 (09:42→21:52)
[2025-07-05] MEDS: FEOSOL 325 MG PO (09:42)
[2025-07-05] MEDS: ASPIR LOW (ENTERIC COATED) 81 MG PO (09:42)
[2025-07-05] MEDS: LIDOCAINE 4% PATCH 1 PATCH TOPICAL (09:42)
[2025-07-05] MEDS: SANTYL OINTMENT 1 APPLIC TOPICAL (09:43)
[2025-07-05] MEDS: NORVASC PO (09:43)
[2025-07-05] MEDS: TIMOPTIC 0.5% OPHTHALMIC SOLUTION 1 DROP BOTH EYES ×2 (09:44→21:52)
[2025-07-05] MEDS: TYLENOL 650 MG PO ×2 (09:44→16:52)
[2025-07-05] MEDS: TRUSOPT 2% OPHTHALMIC SOLUTION 1 DROP BOTH EYES ×2 (09:44→21:52)
[2025-07-05 12:21] LABS: Glucose - Point of Care 114 mg/dl (70-99)
[2025-07-05] MEDS: ANTIFUNGAL CLEAR 1 APPLIC TOPICAL (13:22)
--- NOTE | 2025-07-05 14:21 | W.PN.URO.CBU ---
Today's Communication / Plan
-
Shah catheter
Continue abx pending culture sens
Outpatient workup for bladder function issues
Assessment / Plan
-
84F admitted with recurrent UTI and gross hematuria
Bilateral hydroureteronephosis
- Likely neurogenic bladder from MS which has not been worked up
- Bilateral hydroureteronephrosis which has worsened even since last admission is likely due to ureteral reflux is a major risk factor for recurrent infections and bleeding
- Recommend she be discharged with a shah catheter pending outpatient workup for bladder function
- Patient discussed with family yesterday and not agreeable to have catheter
- Recommend 10 day total abx course for complicated UTI
- Final Cx pending
- Recommend starting methenamine hippurate 1g BID after completing antibiotic course to help prevent recurrent UTIs
Will arrange further outpatient testing and counseling after discharge
Diagnosis
-
Date of Service: July 05, 2025
-
Patient Diagnosis:
Urinary retention
recurrent UTI
Bilateral hydronephrosis
Post Op Day:
Subjective
-
patient and family agreed to SPT
Objective
-
Vital Signs
Temp Pulse Resp BP Pulse Ox
98.4 F 65 16 100/65 98
07/05/25 07:30 07/05/25 09:43 07/05/25 07:30 07/05/25 09:43 07/05/25 07:30
Intake and Output
07/04/25 07/05/25 07/06/25
06:59 06:59 06:59
Intake Total 540 / 540 780 / 780
Balance 540 / 540 780 / 780
Intake:
Oral fluids 540 / 540 780 / 780
Other:
Number of approximated SMALL 1
amounts of urine
Number of approximated MODERATE 1
amounts of urine
How many times incontinent 1
SMALL amount urine
How many times incontinent 3
MODERATE amount urine
How many times incontinent 2 3
SATURATED amount urine
Laboratory Results
07/05/25 05:36
07/05/25 05:36
Physical Exam
-
General - well developed, well nourished, no acute distress
[2025-07-05 15:20] VITALS: BP 108/42
--- NOTE | 2025-07-05 15:20 | W.PN.HOSP.TC ---
Today's Communication/Plan
-
Assessment / Plan
Assessment / Plan
General: No Apparent Distress, Comfortable and Conversant
HEENT: NormoCephalic, Moist mucous membranes, Atraumatic
Respiratory: Clear and Non Labored Respirations
Cardiac: S1/S2 and Regular Rhythm; No Rub or Gallop
GI: Soft, Non Tender, Non Distended and Normal Bowel Sounds
Musculoskeletal: No Edema, no deformity
Skin: Warm and dry
: NO Fish
Neuro: Awake, Alert, Nonfocal/grossly intact
Psych: Calm and Intact Judgment/Insight
Ms. Meraz is an 84-year-old female with a medical history of peripheral to disease (status post bilateral lower extremity stenting), multiple sclerosis (wheelchair-bound), recent cystitis and pyelonephritis, hypertension, and glaucoma who
presented from her shelter due to hematuria. She was treated for a UTI during her recent admission in May 2025, during which time urine culture was grew MSSA resistant to Levaquin. Currently, she has been treated with cefepime and culture
results are pending. Due to her gross hematuria, her Plavix is being held however she has been continued on low-dose aspirin. She has been admitted for further evaluation and management.
Hematuria:
- Suspect secondary to cystitis with CT evidence of bladder wall thickening and blood clots within the bladder
- Urine cultures growing Enterococcus and Pseudomonas resistant to fluoroquinolones and meropenem
- Discussed antibiotic options with ID, only viable choices IV Zosyn which we will continue to complete a 10-day course (last dose 07/12)
- Urology following, recommend Fish catheter placement and outpatient follow-up for urinary dysfunction suspected secondary to MS
- Have been holding Plavix due to bleeding, continuing antiplatelets with low-dose aspirin considering fairly recent peripheral artery stenting in her lower extremities
- Transfused 1 unit PRBCs with improvement in hemoglobin from 7.1 up to 8.1, hemoglobin remained stable at 8.7 today
- Will continue to monitor hemoglobin and transfuse further as needed
- Will restart Plavix tomorrow morning 07/06, if she starts rebleeding then will need to discontinue
Hypertension:
- Continue home amlodipine 2.5 mg daily with holding parameters for hypotension
Peripheral arterial disease:
- Status post arterial lithotripsy and stenting bilateral lower extremities recently (right 05/27/2025 and left 06/02/2025)
- Holding Plavix due to hematuria, will restart tomorrow morning 07/06
- Continuing low-dose aspirin
Multiple sclerosis:
- Continue prednisone 5 mg daily
- Wheelchair-bound
DVT prophylaxis: SCDs
CODE STATUS: DNR
Total time spent on today's encounter was 53 minutes.
Anticipated Discharge: > 48 hours
Subjective/Interval History
-
Date of Service: July 05, 2025
Patient was seen and examined at bedside this morning. Remains comfortable. Blood cultures resulted positive for resistant Pseudomonas and Enterococcus. Remains on Zosyn.
Objective Data
-
Labs:
Laboratory Results
07/05/25
05:36
WBC 10.5
Hgb 8.7 L
Hct 27.1 L
Plt Count 562 H
Sodium 136
Potassium 4.7
Chloride 109 H
Carbon Dioxide 22
BUN 21 H
Creatinine 0.9
Glucose 125 H
Calcium 8.8
Total Bilirubin 0.4
AST 19
ALT 12
Alkaline Phosphatase 96
Vital Signs:
Vital Signs
Temp Pulse Resp BP Pulse Ox
98.4 F 65 16 100/65 98
07/05/25 07:30 07/05/25 09:43 07/05/25 07:30 07/05/25 09:43 07/05/25 07:30
I&O
07/04/25 07/05/25 07/06/25
06:59 06:59 06:59
Intake Total 540 / 540 780 / 780
Balance 540 / 780 / 780
Review of Systems
-
History Source: Patient
All other systems: Reviewed and negative
Physical Exam
-
General: No Apparent Distress
[2025-07-05] MEDS: NSS 1000 IV (16:52)
[2025-07-05] MEDS: DELTASONE 5 MG PO (16:53)
[2025-07-05 21:35] LABS: Glucose - Point of Care 251 mg/dl (70-99)
[2025-07-05] MEDS: TYLENOL 1000 MG PO (21:53)
[2025-07-05] MEDS: XALATAN OPHTHALMIC SOLUTION 1 DROP LEFT EYE (21:53)
[2025-07-05] MEDS: REMOVE LIDOCAINE PATCH 1 PATCH REMOVE (21:54)
[2025-07-05 23:00] VITALS: BP 110/40
[2025-07-06] MEDS: ZOSYN 50 IV ×4 (00:51→22:05)
[2025-07-06 06:35] LABS: Hematocrit 27.2 % (37.0-47.0); Hemoglobin 8.4 g/dL (12.0-16.0); Mean Corp Hgb Conc. 30.9 g/dL (33.0-37.0); Mean Corpuscular Volume 98.2 fL (81.0-99.0); Platelet Count 572 10^3/uL (130-400); Red Cell Dist. Width 17.1 % (11.5-14.5)
[2025-07-06 07:15] VITALS: BP 148/60
[2025-07-06 08:37] LABS: Glucose - Point of Care 63 mg/dl (70-99)
[2025-07-06] MEDS: LIDOCAINE 4% PATCH 1 PATCH TOPICAL (09:12)
[2025-07-06] MEDS: PLAVIX 75 MG PO (09:12)
[2025-07-06] MEDS: NORVASC 2.5 MG PO (09:13)
[2025-07-06] MEDS: SANTYL OINTMENT 1 APPLIC TOPICAL (09:13)
[2025-07-06] MEDS: MYCOSTATIN CREAM 1 APPLIC TOPICAL ×2 (09:13→20:13)
[2025-07-06] MEDS: FEOSOL 325 MG PO (09:13)
[2025-07-06] MEDS: ASPIR LOW (ENTERIC COATED) 81 MG PO (09:14)
[2025-07-06] MEDS: TYLENOL 650 MG PO ×2 (09:14→17:22)
[2025-07-06] MEDS: ALPHAGAN 0.2% EYE DROPS 1 DROP BOTH EYES ×2 (09:15→20:13)
[2025-07-06] MEDS: TIMOPTIC 0.5% OPHTHALMIC SOLUTION 1 DROP BOTH EYES ×2 (09:15→20:12)
[2025-07-06] MEDS: TRUSOPT 2% OPHTHALMIC SOLUTION 1 DROP BOTH EYES ×2 (09:15→20:12)
[2025-07-06 09:23] LABS: Glucose - Point of Care 100 mg/dl (70-99)
--- NOTE | 2025-07-06 13:46 | W.PN.HOSP.TC ---
Addendum entered and electronically signed by Flaco Camargo MD 07/09/25 08:37:
Acute on chronic anemia. Iron studies suggest anemia of chronic disease. With the hematuria cannot rule out component of acute blood loss anemia. Patient had 1 unit PRBC transfused.
Original Note:
Today's Communication/Plan
-
[facility]line for IV abx at [facility]
DC in am if stable
Assessment / Plan
Assessment / Plan
Ms. Meraz is an 84-year-old female with a medical history of peripheral to disease (status post bilateral lower extremity stenting), multiple sclerosis (wheelchair-bound), recent cystitis and pyelonephritis, hypertension, and glaucoma who
presented from her [facility] due to hematuria. She was treated for a UTI during her recent admission in May 2025, during which time urine culture was grew MSSA resistant to Levaquin. Currently, she has been treated with cefepime and culture
results are pending. Due to her gross hematuria, her Plavix is being held however she has been continued on low-dose aspirin. She has been admitted for further evaluation and management.
Hematuria:
- Suspect secondary to cystitis with CT evidence of bladder wall thickening and blood clots within the bladder
- Urine cultures growing Enterococcus and Pseudomonas resistant to fluoroquinolones and meropenem
- Discussed antibiotic options with ID, only viable choices IV Zosyn which we will continue to complete a 10-day course (last dose 07/12)
- Urology following, recommend Fish catheter placement and outpatient follow-up for urinary dysfunction suspected secondary to MS
- Have been holding Plavix due to bleeding, continuing antiplatelets with low-dose aspirin considering fairly recent peripheral artery stenting in her lower extremities
- Transfused 1 unit PRBCs with improvement in hemoglobin from 7.1 up to 8.1, hemoglobin remained stable at 8.7 today
- Will continue to monitor hemoglobin and transfuse further as needed
- Will restart Plavix today, if she starts rebleeding then will need to discontinue. So far no bleeding in her Fish bag.
Hypertension:
- Continue home amlodipine 2.5 mg daily with holding parameters for hypotension
Peripheral arterial disease:
- Status post arterial lithotripsy and stenting bilateral lower extremities recently (right 05/27/2025 and left 06/02/2025)
- Holding Plavix due to hematuria, will restart today
- Continuing low-dose aspirin
Multiple sclerosis:
- Continue prednisone 5 mg daily
- Wheelchair-bound
DVT prophylaxis: SCDs
CODE STATUS: DNR
DW daughter at bedside
Anticipated Discharge: Within 24 hours
Subjective/Interval History
-
Date of Service: July 06, 2025
Voices no specific complaints
Feels ok
Denies fever or chills
Not SOB or having CP
No N/V
Objective Data
-
Labs:
Laboratory Results
07/06/25
05:47
WBC 9.5
Hgb 8.4 L
Hct 27.2 L
Plt Count 572 H
Vital Signs:
Vital Signs
Temp Pulse Resp BP Pulse Ox
97.7 F 62 16 148/60 97
07/06/25 07:15 07/06/25 07:15 07/06/25 07:15 07/06/25 07:15 07/06/25 07:15
I&O
07/05/25 07/06/25 07/07/25
06:59 06:59 06:59
Intake Total 780 / 780 1280 / 1280
Output Total 925 / 925
Balance 780 / 780 355 / 355
Physical Exam
-
General: No Apparent Distress
Respiratory: Non Labored Respirations; Negative Accessory Resp Muscle Use
Cardiac: Regular Rhythm and S1/S2
GI: Soft
Neuro: AO x 3
Psych: Calm; Negative Confused
--- NOTE | 2025-07-06 14:18 | W.PN.URO.CBU ---
Today's Communication / Plan
-
Discharge with shah
Continue antibiotics
Outpatient follow up
Assessment / Plan
-
84F admitted with recurrent UTI and gross hematuria
Bilateral hydroureteronephosis
- Likely neurogenic bladder from MS which has not been worked up
- Bilateral hydroureteronephrosis which has worsened even since last admission is likely due to ureteral reflux is a major risk factor for recurrent infections and bleeding
- Recommend she be discharged with a shah catheter pending outpatient workup for bladder function
- Shah placed 07/05 and well tolerated
- Recommend 10 day total abx course for complicated UTI
- Final Cx pending
- Recommend starting methenamine hippurate 1g BID after completing antibiotic course to help prevent recurrent UTIs
Will arrange further outpatient testing and counseling after discharge
Diagnosis
-
Date of Service: July 06, 2025
-
Patient Diagnosis:
Urinary retention
recurrent UTI
Bilateral hydronephrosis
Post Op Day:
Subjective
-
Tolerating shah
Objective
-
Vital Signs
Temp Pulse Resp BP Pulse Ox
97.7 F 62 16 148/60 97
07/06/25 07:15 07/06/25 07:15 07/06/25 07:15 07/06/25 07:15 07/06/25 07:15
Intake and Output
07/05/25 07/06/25 07/07/25
06:59 06:59 06:59
Intake Total 780 / 780 1280 / 1280
Output Total / 5
Balance 780 / 780 355 / 355
Intake:
Oral fluids 780 / 780 1080 / 1080
IV fluids (Total) 150 / 150
IV piggybacks 50 / 50
Output:
Urine, Shah 925 / 925
Other:
Number of approximated SMALL 1
amounts of urine
Number of approximated MODERATE 1
amounts of urine
How many times incontinent 3
MODERATE amount urine
How many times incontinent 3
SATURATED amount urine
Laboratory Results
07/06/25 05:47
07/05/25 05:36
Physical Exam
-
General - well developed, well nourished, no acute distress
Chest - unlabored
Abdomen - soft
Shah in place clear urine
[2025-07-06] MEDS: ZOSYN IV ×2 (15:12→15:13)
[2025-07-06 15:38] VITALS: BP 168/69
[2025-07-06 17:02] LABS: Glucose - Point of Care 100 mg/dl (70-99)
[2025-07-06] MEDS: DELTASONE 5 MG PO (17:22)
[2025-07-06 17:49] VITALS: BP 135/59
[2025-07-06] MEDS: REMOVE LIDOCAINE PATCH 1 PATCH REMOVE (20:23)
[2025-07-06] MEDS: XALATAN OPHTHALMIC SOLUTION 1 DROP LEFT EYE (22:06)
[2025-07-06] MEDS: TYLENOL 1000 MG PO (22:06)
[2025-07-06 23:13] VITALS: BP 157/72
[2025-07-07] MEDS: ZOSYN 50 IV ×3 (03:10→15:20)
[2025-07-07 07:00] VITALS: BP 167/75
[2025-07-07] MEDS: LIDOCAINE 4% PATCH 1 PATCH TOPICAL (08:09)
[2025-07-07] MEDS: NORVASC 2.5 MG PO (08:11)
[2025-07-07] MEDS: TYLENOL 650 MG PO ×2 (08:11→15:23)
[2025-07-07] MEDS: PLAVIX 75 MG PO (08:11)
[2025-07-07] MEDS: ASPIR LOW (ENTERIC COATED) 81 MG PO (08:11)
[2025-07-07] MEDS: TRUSOPT 2% OPHTHALMIC SOLUTION 1 DROP BOTH EYES (08:12)
[2025-07-07] MEDS: FEOSOL 325 MG PO (08:12)
[2025-07-07] MEDS: ALPHAGAN 0.2% EYE DROPS 1 DROP BOTH EYES (08:15)
[2025-07-07] MEDS: MYCOSTATIN CREAM 1 APPLIC TOPICAL (08:16)
[2025-07-07] MEDS: TIMOPTIC 0.5% OPHTHALMIC SOLUTION 1 DROP BOTH EYES (08:17)
[2025-07-07] MEDS: SANTYL OINTMENT 1 APPLIC TOPICAL (09:22)
--- NOTE | 2025-07-07 13:56 | W.DCSUMMARY ---
Discharge Summary
Discharge Data
Date of Admission: 07/01/25
Date of Discharge: 07/07/25
-
Pending Results: No
Hospital Course
Primary diagnosis:
Hematuria suspect secondary to urinary tract infection
Secondary diagnosis:
Primary hypertension
Peripheral arterial disease
Multiple sclerosis
Hospital course:
Ms. Meraz is an 84-year-old female with a medical history of peripheral to disease (status post bilateral lower extremity stenting), multiple sclerosis (wheelchair-bound), recent cystitis and pyelonephritis, hypertension, and glaucoma who
presented from her shelter due to hematuria.
CT on admission showed bladder wall thickening and blood clots within the bladder. Urine culture was growing Enterococcus and Pseudomonas aeruginosa resistant to fluoroquinolone and meropenem. Antibiotic options were discussed with ID and the only
viable choice was IV Zosyn and recommendation was for 10-day course. She needs another 5 days of intravenous antibiotics through her midline at her facility upon discharge. Urology saw the patient and replaced the chronic Shah catheter and
recommended outpatient follow-up for urinary dysfunction evaluation. Suspicion was if this was secondary to multiple sclerosis.
She had blood counts as low as 7.1 with hematuria and had 1 unit of blood transfused. And hemoglobin improved to 8s and remained stable at that. No evidence of iron deficiency.
During the time of hematuria Plavix was kept on hold, once it was resolved she was restarted on Plavix without any issues. She is on dual antiplatelet agents for her PAD.
Today patient without any symptoms. Shah bag clear without hematuria. No fever or chills. No shortness of breath or chest pain. No nausea vomiting. Tolerating diet. Afebrile. Pulse 76. Blood pressure 167/75 but her blood pressure has been
mostly under goal.
Deemed medically stable for DC back to her facility today
Consultants on board:
Urology -Dr. Jake Obregon
Discharge Plan
-
Patient Disposition: Jail/SNF
Discharge Diagnosis/Procedures: Hematuria,UTI; Chronic Shah in place, PAD, Multiple sclerosis
Diet: Regular
Activity: As tolerated
Driving Restrictions: No driving
Bathing Restrictions: None
Activity Restrictions/Additional Instructions:
Wound Care Instructions Right Heel- Clean with saline, apply a madeline thick layer of SANTYL and cover with adaptic and dry dressing. Change daily
Left heel- Apply no-sting barrier and silicone border foam. Change Q 3 days and PRN
Stage 2/MASD to buttocks- Apply barrier PRN with incontinence care
Air surface
Turning schedule
Off-loading boot to right heel, keep left heel off-loaded with pillow or air cushion under calf.
Shah catheter
- Routine shah catheter change every 4 weeks, 16 or [address]
- Okay to irrigate catheter with 100cc saline PRN clots or obstruction
Referrals:
David Lira MD [Family Provider, Internal Medicine] - in less than 1 week
Anup Siddiqi MD [Active, Urology] - in two weeks
Prescriptions:
New
Zosyn in dextrose (iso-osm) 3.375 gram/50 mL Piggyback
3.375 g IV Q6H Qty: 1 0RF
Rx Instructions:
till 07/12/25
Continued
prednisone 5 mg Tablet
5 mg PO QPM
latanoprost 0.005 % Drops
1 drp LEFT EYE HS
acetaminophen [Tylenol] 325 mg Tablet
650 mg PO Q4HPRN PRN (Reason: mild pain)
bisacodyl [Dulcolax (bisacodyl)] 10 mg Suppository
10 mg [place] DAILYPRN PRN (Reason: if no bm by 3rd day)
nystatin 100,000 unit/gram Cream
1 applic TOPICAL BID
brimonidine 0.2 % Drops
1 drp BOTH EYES BID
dorzolamide-timolol 22.3-6.8 mg/mL Drops
1 drp BOTH EYES BID
melatonin 1 mg Tablet
1 mg PO HSPRN PRN (Reason: sleep)
cholecalciferol (vitamin D3) [Vitamin D3] 25 mcg (1,000 unit) Tablet
25 mcg PO DAILY
amlodipine [Norvasc] 2.5 mg tablet
2.5 mg PO DAILY Qty: 30 0RF
clopidogrel 75 mg Tablet
75 mg PO DAILY Qty: 30 0RF
aspirin 81 mg Tablet,Delayed Release (Dr/Ec)
81 mg PO DAILY Qty: 30 0RF
acetaminophen [Tylenol] 325 mg Tablet
650 mg PO BID
lidocaine 4 % Adhesive Patch,Medicated
1 patch TOPICAL DAILY
tramadol 50 mg Tablet
25 mg PO Q6HPRN PRN (Reason: moderate pain)
ferrous sulfate 325 mg (65 mg iron) Tablet
325 mg PO DAILY
acetaminophen [Tylenol Extra Strength] 500 mg tablet
1,000 mg PO HS
diclofenac sodium 1 % gel
2 g topical QID
Rx Instructions:
knees
Discharge Orders:
Discharge Patient (As Directed); Ordered 07/07/25
Ordered By: Flaco Camargo
Discharge Date and Time
Print Language: GEORGIAN
--- NOTE | 2025-07-07 14:52 | CM ---
Pt is cleared for discharge to [facility] today. Ambulance transport requested for 5PM olive picker.
CM spoke with pt's daughter/POA who is agreeable to discharge today. IMM reviewed verbally via telephone and pt's daughter provided verbal consent. Copy of IMM to be sent with pt's records.
Plan: Discharge to [facility] today via Ambulance.
[2025-07-07 14:53] VITALS: BP 141/69
--- NOTE | 2025-07-09 08:20 | PN.CDI ---
CDI
- -
CDI:
Physician Documentation Request
Admit Date: 07/01/25 16:20
Dear Doctor Raman,
Patient presented with hematuria
D/C summary states 'No evidence of iron deficiency'
07/01 Patient received 1 unit of PRBC
H/H results:
Laboratory Tests
07/01/25 07/02/25 07/03/25
12:22 05:10 05:23
Hgb 7.1 L 8.1 L 8.3 L
Hct 22.8 L 24.6 L 25.1 L
07/04/25 07/05/25 07/06/25
06:15 05:36 05:47
Hgb 8.6 L 8.7 L 8.4 L
Hct 28.4 L 27.1 L 27.2 L
Could you please provide a diagnosis that supports the above lab abnormalities and additional evaluation, monitoring and/or treatment rendered:
Acute blood loss anemia
Acute blood loss anemia with baseline chronic anemia
Anemia (please specify)
abnormal lab value clinically insignificant
Other
Use of terms such as suspected, likely, concern for, or probable (associated with a specific diagnosis that is being evaluated, monitored, or treated as if it exists) are acceptable and can be coded in the inpatient setting, when documented at the
time of discharge.
Thank you,
Amparo Rich RN, BSN
CDI Specialist
tiger text
Please use your independent medical judgment in providing your response.
== END 2025-07-07 17:55 | DRG 690 ==
LOC: 3 WEST ACU 16:20
PROVIDERS: Clinical Nurse Specialist Family Health; Nurse Practitioner Gerontology; ADMITTING PHYSICIAN Hospitalist; ATTENDING PHYSICIAN Internal Medicine; CONSULT PHYSICIAN Specialist; EMERGENCY PHYSICIAN Emergency Medicine; FAMILY PHYSICIAN Internal Medicine Geriatric Medicine
PROC: 30233N1 Transfusion of Nonautologous Red Blood Cells into Peripheral Vein, Percutaneous Approach (ICD-10-PCS; 2025-07-01)
DX: N13.6 Pyonephrosis (principal); N30.01 Acute cystitis with hematuria; E87.1 Hypo-osmolality and hyponatremia; Z16.24 Resistance to multiple antibiotics; Z16.23 Resistance to quinolones and fluoroquinolones; D62 Acute posthemorrhagic anemia; D68.32 Hemorrhagic disorder due to extrinsic circulating anticoagulants; I10 Essential (primary) hypertension; I73.9 Peripheral vascular disease, unspecified; G35 Multiple sclerosis; H40.9 Unspecified glaucoma; F32.A Depression, unspecified; N31.9 Neuromuscular dysfunction of bladder, unspecified; M17.11 Unilateral primary osteoarthritis, right knee; K80.20 Calculus of gallbladder without cholecystitis without obstruction; G47.00 Insomnia, unspecified; L89.622 Pressure ulcer of left heel, stage 2; D63.8 Anemia in other chronic diseases classified elsewhere; L89.152 Pressure ulcer of sacral region, stage 2; B95.2 Enterococcus as the cause of diseases classified elsewhere; I25.10 Atherosclerotic heart disease of native coronary artery without angina pectoris; N30.21 Other chronic cystitis with hematuria; N32.89 Other specified disorders of bladder; Z60.2 Problems related to living alone; Z66 Do not resuscitate; Z79.02 Long term (current) use of antithrombotics/antiplatelets; Z79.82 Long term (current) use of aspirin; Z99.3 Dependence on wheelchair; Z87.891 Personal history of nicotine dependence; Z88.2 Allergy status to sulfonamides; Z91.018 Allergy to other foods; Z87.440 Personal history of urinary (tract) infections; Z90.710 Acquired absence of both cervix and uterus
CPT/HCPCS: 74177; 80053; 81003; 81015; 82607; 82728; 82746; 82962; 83540; 83550; 85025; 85027; 86850; 86900; 86901; 86920; 87070; 87077; 87086; 87186; 99285; P9016; Q9967

== ENCOUNTER 2025-09-04 18:36 | Inpatient (IN) | payer MEDICARE, OTHER, SELFPAY ==
[2025-09-04] VITALS (8 sets, daily range): BP systolic 103–156; BP diastolic 65–98; BMI 19.8; BMI 17.9
[2025-09-04 14:51] LABS: Hematocrit 40.0 % (37.0-47.0); Hemoglobin 12.6 g/dL (12.0-16.0); Mean Corp Hgb Conc. 31.5 g/dL (33.0-37.0); Mean Corpuscular Volume 95.0 fL (81.0-99.0); Nucleated Red Blood Cells % 0 %; Platelet Count 527 10^3/uL (130-400); Red Cell Dist. Width 13.2 % (11.5-14.5)
[2025-09-04 15:01] LABS: ALT (SGPT) 18 U/L (0-35); AST (SGOT) 18 U/L (14-36); Albumin 4.2 g/dl (3.5-5.0); Alkaline Phosphatase 116 U/L (38-126); Blood Urea Nitrogen 29 mg/dl (7-17); Calcium 10.3 mg/dl (8.4-10.2); Carbon Dioxide 25 mmol/L (22-30); Chloride 102 mmol/L (98-107); Estimated Creatinine Clearance 35 ml/min; Glucose 146 mg/dl (70-99); Potassium 4.0 mmol/L (3.5-5.1); Sodium 134 mmol/L (135-145); Total Protein 7.4 g/dl (6.3-8.2); eGFR > 60.00
--- NOTE | 2025-09-04 15:36 | EDRN ---
Dr. Milan in room w/ pt at this time.
--- NOTE | 2025-09-04 15:38 | ED.GENMED ---
History of Present Illness
General
Chief Complaint: Abdominal Symptoms
Source: patient and ambulance crew
Exam Limitations: none
Time Seen by Provider: 09/04/25 15:26
Nursing documentation reviewed up to this point in time: agreed with
History of Present Illness
History of Present Illness:
Note:
CHIEF COMPLAINT(S)
Pain in the lower abdomen possibly due to urinary retention.
HISTORY OF PRESENT ILLNESS
The patient is an 84-year-old female experiencing significant pain in the lower abdomen. The patient reports having a Fish catheter that they attempted to remove unsuccessfully, leading to concerns of urinary retention. The catheter is currently
not in place, and she is unable to feel or confirm its removal. The onset of pain is associated with this catheter issue, and she expresses uncertainty about the catheter status. Upon assessment, it is thought that the patient might be retaining
urine, which could be causing the discomfort. Indications are made towards the need for re-insertion of a Fish catheter to resolve this issue. Additionally, there is a mention of possible blood in the vaginal area. The patient reports the use of
blood thinners, although specifics of when the pain began were not clearly articulated.
SOCIAL DETERMINANTS AFFECTING HEALTH
The patient mentions her daughter in relation to ongoing care and indicates some level of home care support.
PHYSICAL EXAM
General: Alert, no acute distress.
Skin: Warm, dry.
Head: Normocephalic, atraumatic.
Neck: Supple, trachea midline.
Eye Ears, Nose, Mouth, and Throat: Oral mucosa moist.
Cardiovascular: Normal peripheral perfusion, No edema.
Respiratory: Respirations are non-labored.
Gastrointestinal: Abdomen nondistended.
: blood around ureathral meatus
Back: Normal range of motion, normal alignment.
Musculoskeletal: Normal range of motion, normal strength.
Neurological: Alert and oriented to person, place, time, and situation, no focal neurological deficit observed.
Psychiatric: Cooperative, appropriate mood and affect.
PROBLEM LIST
Acute:
- Pain in lower abdomen likely due to urinary retention.
- Potential blood presence in vaginal area.
- Current use of blood thinners.
- Absence/removal issue with Fish catheter.
PLAN
- Re-insert Fish catheter to address suspected urinary retention.
- Perform a bladder scan prior to catheter re-insertion to assess the degree of urine retention.
- Monitor urine output and check for any presence of hematuria.
- Address patients discomfort effectively post-catheterization.
DIFFERENTIAL DIAGNOSIS
The Differential Diagnosis includes, in no particular order and is not limited to:
- Urinary retention
- Urinary tract infection
- Bladder stones
- Hematuria from anticoagulant use
- Vaginal bleeding
- Abdominal mass or tumor
- Vaginal pathology
- Pelvic inflammatory disease
- Interstitial cystitis
- Lower abdominal pain secondary to other systemic issues
CARE-UPDATE
09/04/25 - 17:57
Initiated continuous bladder irrigation. Plan to admit to hospice for supportive care. Patient remains afebrile with no signs of urinary tract infection. Reports significant improvement in comfort following Fish catheter placement.
Disposition:
SUMMARY OF ENCOUNTER
An 84-year-old female presented with lower abdominal pain, likely due to urinary retention following an unsuccessful self-removal of a Fish catheter. The patient was unable to confirm if the catheter had been fully removed, raising concerns of
urinary retention. She also mentioned potential blood presence in the vaginal area and is on blood thinners. Following clinical examination and considering the symptoms, continuous bladder irrigation was initiated, which led to an improvement in her
symptoms after re-insertion of a Fish catheter.
DISPOSITION
Admit to hospice for supportive care.
ASSESSMENT
The patient is experiencing urinary retention with associated lower abdominal pain and possible hematuria, likely influenced by the use of blood thinners.
PLAN
- Re-insert the Fish catheter to relieve urinary retention.
- Initiate continuous bladder irrigation.
- Monitor urine output and presence of hematuria.
MEDICATION RECONCILIATION
The patient is using blood thinners, though the specific medication was not identified.
MEDICAL DECISION MAKING
-Complexity of Data Reviewed: Chronic conditions affecting care such as anticoagulation therapy on blood thinners.
-Risk:
Decisions to escalate care by admitting the patient to hospice for ongoing management, including continuous bladder irrigation due to urinary retention concern, was made based on the severity and potential complications associated with her
condition. Care significantly affected by Social Determinants of Health, as the patient has home care support from her daughter.
DIAGNOSIS
- Urinary retention (ICD-10: R33.8)
- Hematuria (ICD-10: R31.9)
- Pain in lower abdomen (ICD-10: R10.30)
Phy Exam
Physical Exam
Physical Exam:
.
Course
Orders/Labs/Results
Orders:
Orders
09/04/25 14:27
Cardiac Monitoring- Treatment ONCE
IV Insert/Care/Rem.- Treatment PRN
09/04/25 14:37
Complete Blood Count/With Diff Urgent
Comprehensive Metabolic Panel Urgent
09/04/25 15:37
Bladder Scan- Treatment ONCE
Fish [Fish Placement- Treatment] ONCE
Reason for insertion: Acute Retention
09/04/25 16:13
Urinalysis Reflex To Culture Urgent
Date Specimen was Collected: 09/04/25
Time Specimen was Collected: 16:08
Urine Microscopic Reflex Cult Urgent
Abnormal Lab Results
09/04/25 09/04/25
14:37 16:13
WBC 13.5 H 10^3/uL
(4.8-10.8)
MCHC 31.5 L g/dL
(33.0-37.0)
Plt Count 527 H 10^3/uL
(130-400)
Abs Immat Gran (auto) 0.1 H 10^3/uL
(0-0.05)
Absolute Neuts (auto) 10.2 H 10^3/uL
(1.4-6.5)
Absolute Monos (auto) 1.2 H 10^3/uL
(0.1-0.6)
Immature Gran % 0.6 H %
(0-0.5)
Neutrophils % 75.4 H %
(42.2-75.2)
Lymphocytes % 13.6 L %
(20.5-51.1)
Sodium 134 L mmol/L
(135-145)
BUN 29 H mg/dl
(7-17)
Glucose 146 H mg/dl
(70-99)
Calcium 10.3 H mg/dl
(8.4-10.2)
Urine Ketones 1+ A
(Negative)
Ur Occult Blood Reflex 4+ A
(Negative)
Urine RBC >100 A /HPF
(0-2)
Urine Bacteria (Reflex) Few A
(Negative)
Urine Albumin (Reflex) 4+ A
(Neg - Trace)
09/04/25 14:37
09/04/25 14:37
Vital Signs
Initial and Last Documented VS:
Initial Vital Signs
Temp
99.1 F
09/04/25 14:13
Last Documented Vital Signs
Temp Pulse Resp BP Pulse Ox
99.1 F 97 25 120/67 95
09/04/25 14:13 09/04/25 17:15 09/04/25 17:15 09/04/25 17:00 09/04/25 17:15
*Pulse Oximetry
SaO2: 97
Oxygen Mode of Delivery: Room air
Patient hypoxic: no
*Critical Care Note
Total Time (30-74mins, 75-104mins- exclusive of procedures): Not Applicable
ED Attending Note
-
Portions of this chart may have been created with voice recognition software.� Occasional wrong word or��sound alike� substitutions may have occurred due to the inherent limitations of voice recognition software.
Discharge Plan
Departure
Patient Disposition: Admit
Date of Disposition: 09/04/25
Time of Disposition: 17:51
Admit to: Med/Surg
Presentation/result/management discussed w/ accepting MD/DO: Hospitalist
Patient with high blood pressure during this ER visit?: No
Condition: Fair
Discharge Problem:
Hematuria, Acute urinary retention
Prescriptions:
No Action
prednisone 5 mg Tablet
5 mg PO QPM
latanoprost 0.005 % Drops
1 drp LEFT EYE HS
acetaminophen [Tylenol] 325 mg Tablet
650 mg PO Q4HPRN PRN (Reason: mild pain)
bisacodyl [Dulcolax (bisacodyl)] 10 mg Suppository
10 mg [place] DAILYPRN PRN (Reason: if no bm by 3rd day)
nystatin 100,000 unit/gram Cream
1 applic TOPICAL BID
brimonidine 0.2 % Drops
1 drp BOTH EYES BID
dorzolamide-timolol 22.3-6.8 mg/mL Drops
1 drp BOTH EYES BID
melatonin 1 mg Tablet
1 mg PO HSPRN PRN (Reason: sleep)
cholecalciferol (vitamin D3) [Vitamin D3] 25 mcg (1,000 unit) Tablet
25 mcg PO DAILY
tramadol 50 mg Tablet
25 mg PO Q6HPRN PRN (Reason: moderate pain)
ferrous sulfate 325 mg (65 mg iron) Tablet
325 mg PO DAILY
acetaminophen [Tylenol Extra Strength] 500 mg tablet
1,000 mg PO HS
amlodipine [Norvasc] 2.5 mg tablet
2.5 mg PO DAILY
clopidogrel 75 mg tablet
75 mg PO DAILY
aspirin 81 mg tablet,delayed release (DR/EC)
81 mg PO DAILY
Referrals:
David Lira MD [Family Provider, Internal Medicine]
Interventions
Interventions:
*Risk Screen - Suicide Last Done: 09/04/25 14:14
*General Assessment Last Done: 09/04/25 14:14
*Neglect/Abuse Screening Last Done: 09/04/25 14:14
*ED- Fall Risk Assessment Last Done: 09/04/25 14:14
*ED COVID-19 Vaccine History Last Done: 09/04/25 14:14
*ED Influenza Vaccine History Last Done: 09/04/25 14:14
DZ-Csdhih-Gmlewcunsf Assessment Last Done: 09/04/25 16:08
Discharge Date and Time
Print Language: BENGALI
--- NOTE | 2025-09-04 16:26 | EDRN ---
Urine was red and thick like blood. Pt had blood and clots in her vagina that appeared to be coming from her urethra. Pt also had a very huge formed BM, black brown and hemoccult negative. Pt had it after shah placed. Pt cleaned up and after seeing
a sacral small stage 2 decubitus was turned on her R side w/ pillow to lift heels (bilaterl heel decubiti noted-dressings over each) off of bed. Dr. Milan informed of BM and consistency of urine.
[2025-09-04 16:29] LABS: Urine Character Bloody (Clear)
[2025-09-04 16:40] LABS: Urine Red Blood Cell >100 /HPF (0-2); Urine White Cell 0-2 /HPF (0-5)
--- NOTE | 2025-09-04 17:35 | EDRN ---
Dr. Milan in to see pt. Pt has had another medium black-brown BM, inc in bed. Pt remains w/ very bloody urine. Dr. Milan stated she needs bladder irrigation.
--- NOTE | 2025-09-04 18:15 | EDRN ---
Dr. Bermudez in to see pt.
--- NOTE | 2025-09-04 18:32 | HPS.HSE ---
Family Physician
-
Family Physician: David Lira
Chief Complaint
-
abdominal pain
History of Present Illness
84-year-old female past medical history of multiple sclerosis wheelchair-bound, prior hematuria secondary to cystitis, neurogenic bladder with chronic Fish catheter, peripheral arterial disease status post bilateral lower extremity stents, ,
hypertension, glucoma, presenting with lower abdominal pain starting yesterday. Patient states that she has been urinating normally without any burning or discomfort and states that she does not have a Fish catheter currently which appears to have
been removed in the nursing facility. She denies any nausea or vomiting. Denies any fevers or chills.
Patient was recently admitted from 07/01 to 07/07 for hematuria with clots secondary to cystitis. Urine culture grew Enterococcus and Pseudomonas resistant to fluoroquinolones and meropenem. Patient was treated with Zosyn. Patient was seen by
urology who replaced chronic Fish catheter.
Medical History
Past Medical History
Past Medical History: Reports Other (multiple sclerosis wheelchair-bound, prior hematuria secondary to cystitis, neurogenic bladder with chronic Fish catheter, peripheral arterial disease status post bilateral lower extremity stents, ,
hypertension, glucoma)
Past Surgical History: Reports None
Social History
Tobacco: Non-smoker
Alcohol: None
Drug: None
Family History
Family History: Not pertinent
Allergies / Home Medications
Allergies reflects when Allergies were last updated in [facility].
Home Medications with original date entered in [facility]
Allergy/Medication List:
Allergies
Allergy/AdvReac Type Severity Reaction Status Date / Time
almond Allergy Unknown Verified 09/04/25 14:12
Sulfa (Sulfonamide Allergy Unknown Verified 09/04/25 14:12
Antibiotics)
Home Medications
acetaminophen 325 mg tablet (Tylenol) 650 mg PO Q4HPRN PRN mild pain 05/22/25
bisacodyl 10 mg rectal suppository (Dulcolax (bisacodyl)) 10 mg [place] DAILYPRN PRN if no bm by 3rd day 05/22/25
brimonidine 0.2 % eye drops 1 drp BOTH EYES BID Eye Condition 05/22/25
cholecalciferol (vitamin D3) 25 mcg (1,000 unit) tablet (Vitamin D3) 25 mcg PO DAILY Supplement 05/22/25
dorzolamide 22.3 mg-timolol 6.8 mg/mL eye drops 1 drp BOTH EYES BID Eye Condition 05/22/25
latanoprost 0.005 % eye drops 1 drp LEFT EYE HS Eye Condition 05/22/25
melatonin 1 mg tablet 1 mg PO HSPRN PRN sleep 05/22/25
nystatin 100,000 unit/gram topical cream 1 applic topical BID both feet 05/22/25
prednisone 5 mg tablet 5 mg PO QPM m.s. 05/22/25
acetaminophen 500 mg tablet (Tylenol Extra Strength) 1,000 mg PO HS MILD PAIN 07/01/25
ferrous sulfate 325 mg (65 mg iron) tablet 325 mg PO DAILY Supplement 07/01/25
tramadol 50 mg tablet 25 mg PO Q6HPRN PRN moderate pain 07/01/25
amlodipine 2.5 mg tablet (Norvasc) 2.5 mg PO DAILY Heart Disease/Condition 09/04/25
aspirin 81 mg tablet,delayed release 81 mg PO DAILY Blood Clot Prevention/Tx 09/04/25
clopidogrel 75 mg tablet 75 mg PO DAILY Blood Clot Prevention/Tx 09/04/25
Review of Systems
-
History Source: Patient
A 12 point ROS was completed and negative except as noted: Yes
Constitutional: Reports No Symptoms
EENT: Reports No Symptoms
Respiratory: Reports No Symptoms
Cardiac: Reports No Symptoms
Abdomen/GI: Reports No Symptoms
: Reports No Symptoms
Musculoskeletal: Reports No Symptoms
Skin: Reports No Symptoms
Neurological: Reports No Symptoms
Endocrine: Reports No Symptoms
Hematologic/Lymphatic: Reports No Symptoms
Psych: Reports No Symptoms
Physical Exam
Vital Signs
Vital Signs
Temp Pulse Resp BP Pulse Ox
99.1 F 96 23 131/70 97
09/04/25 14:13 09/04/25 18:15 09/04/25 18:15 09/04/25 18:07 09/04/25 18:15
Physical Exam
General: Well Developed, Well Nourished and No Apparent Distress
HEENT: NormoCephalic, Moist mucous membranes and Atraumatic
Respiratory: Clear
Cardiac: S1/S2 and Regular Rhythm; No Murmur or Rub
GI: Soft, Non Tender, Non Distended and Normal Bowel Sounds; No Organomegaly
Rectal: Deferred by Provider
Musculoskeletal: No Clubbing, No Cyanosis and No Edema
Skin: No Rash
Neuro: Nonfocal/grossly intact
Laboratory Results
-
09/04/25 14:37
09/04/25 14:37
Laboratory Results
Total Bilirubin 0.5 mg/dl (0.2-1.3) 09/04/25 14:37
AST 18 U/L (14-36) 09/04/25 14:37
ALT 18 U/L (0-35) 09/04/25 14:37
Alkaline Phosphatase 116 U/L (38-126) 09/04/25 14:37
Data Reviewed
-
Lab Data: Labs Reviewed by me
Old Records: Reviewed
Impression/Plan
-
IMPRESSION:
PLAN:
# Recurrent hematuria/urinary retention unclear etiology possibly hemorrhagic cystitis
-Urinalysis shows greater than 100 RBC
-Hold aspirin and Plavix
- CBI to be started
- Urology consulted
# History of hematuria secondary to complicated UTI
Chronic urinary retention secondary to neurogenic bladder with prior chronic Fish catheter
- Appears that Fish catheter was removed since prior admission
Multiple sclerosis
- Wheelchair-bound
- Continue prednisone
Peripheral arterial disease status post bilateral lower extremity stents
Essential hypertension
- Continue amlodipine
Glaucoma
- Continue eyedrops
Full code
DVT prophylaxis�SCDs
Regular diet
--- NOTE | 2025-09-04 19:09 | EDRN ---
Dr. Obregon verbally w/ read back requested a urine culture that was added on.
--- NOTE | 2025-09-04 19:34 | EDRN ---
Fish just irrigated for muliple clots and now flowing again. Pt had pain in lower abd that is dissipating now.
--- NOTE | 2025-09-04 19:41 | EDRN ---
Pt administered a cup of water at this time.
[2025-09-04] MEDS: TYLENOL 1000 MG PO (22:24)
[2025-09-04] MEDS: ULTRAM 25 MG PO (22:24)
[2025-09-04] MEDS: MYCOSTATIN CREAM 1 APPLIC TOPICAL (22:27)
[2025-09-04] MEDS: TRUSOPT 2% OPHTHALMIC SOLUTION 1 DROP BOTH EYES (22:28)
[2025-09-04] MEDS: XALATAN OPHTHALMIC SOLUTION 1 DROP LEFT EYE (22:28)
[2025-09-04] MEDS: ALPHAGAN 0.2% EYE DROPS 1 DROP BOTH EYES (22:29)
[2025-09-04] MEDS: TIMOPTIC 0.5% OPHTHALMIC SOLUTION 1 DROP BOTH EYES (22:34)
--- NOTE | 2025-09-04 22:45 | PTCARENOTE ---
Patient arrived from the ED via stretcher. Patient pulled over onto the bed. AAOx3, VSS. Forgetful at times. Patient arrived with CBI #2 bag running. Urine is punch red color with small clots. Patient updated on plan of care and medications. Fall
risk and bed alarm in place. Call meehan is within reach.
[2025-09-05] MEDS: ULTRAM 25 MG PO (06:05)
[2025-09-05 07:15] VITALS: BP 155/72
[2025-09-05 07:39] LABS: Hematocrit 34.2 % (37.0-47.0); Hemoglobin 10.6 g/dL (12.0-16.0); Mean Corp Hgb Conc. 31.0 g/dL (33.0-37.0); Mean Corpuscular Volume 97.7 fL (81.0-99.0); Nucleated Red Blood Cells % 0 %; Platelet Count 459 10^3/uL (130-400); Red Cell Dist. Width 13.2 % (11.5-14.5)
[2025-09-05 07:58] LABS: ALT (SGPT) 16 U/L (0-35); AST (SGOT) 17 U/L (14-36); Albumin 3.7 g/dl (3.5-5.0); Alkaline Phosphatase 101 U/L (38-126); Blood Urea Nitrogen 32 mg/dl (7-17); Calcium 9.5 mg/dl (8.4-10.2); Carbon Dioxide 21 mmol/L (22-30); Chloride 104 mmol/L (98-107); Estimated Creatinine Clearance 31 ml/min; Glucose 164 mg/dl (70-99); Potassium 4.2 mmol/L (3.5-5.1); Sodium 137 mmol/L (135-145); Total Protein 6.4 g/dl (6.3-8.2); eGFR > 60.00
[2025-09-05 08:59] LABS: Iron 43 ug/dl (37-170)
[2025-09-05] MEDS: TIMOPTIC 0.5% OPHTHALMIC SOLUTION 1 DROP BOTH EYES ×2 (09:02→21:52)
[2025-09-05] MEDS: MYCOSTATIN CREAM 1 APPLIC TOPICAL ×2 (09:02→21:52)
[2025-09-05] MEDS: ALPHAGAN 0.2% EYE DROPS 1 DROP BOTH EYES ×2 (09:04→21:52)
[2025-09-05] MEDS: TRUSOPT 2% OPHTHALMIC SOLUTION 1 DROP BOTH EYES ×2 (09:05→21:52)
[2025-09-05 09:08] LABS: Total Iron Binding Capacity 202 ug/dl (265-497)
[2025-09-05 09:35] LABS: Ferritin 136.0 ng/ml (11.1-264.0)
[2025-09-05 09:49] LABS: Vitamin B12 233 pg/ml (239-931)
[2025-09-05 10:45] VITALS: BP 104/48
[2025-09-05] MEDS: NORVASC 2.5 MG PO (10:51)
[2025-09-05] MEDS: FEOSOL 325 MG PO (10:51)
[2025-09-05] MEDS: VITAMIN D3 (cholecalciferol) 25 MCG PO (10:51)
[2025-09-05 11:20] VITALS: BP 100/50
[2025-09-05] MEDS: PROTONIX IV 40 MG IV (12:54)
[2025-09-05] MEDS: ZOFRAN 4 MG IV (12:54)
[2025-09-05] MEDS: NSS (PRESERVATIVE FREE) 10 ML IV (12:54)
[2025-09-05] MEDS: NSS 1000 IV (12:57)
[2025-09-05] MEDS: VALIUM 2 MG PO (12:57)
[2025-09-05 13:25] VITALS: BP 101/63
--- NOTE | 2025-09-05 14:47 | W.PN.HOSP.TC ---
Today's Communication/Plan
-
CBI
Zosyn
IVF
Assessment / Plan
Assessment / Plan
84-year-old female with abdominal pain. She has a history of multiple sclerosis wheelchair-bound with history of prior hematuria, neurogenic bladder and chronic Fish catheter.. Patient was admitted to [facility] 07/01/25-07/07/25 for
hematuria with clots secondary to cystitis. Urine cultures had Enterococcus and Pseudomonas treated with Zosyn. 2 days ago Fish was replaced at [place] due to decreased UOP blood in the bag. Therefore retirement exchanged Fish catheter. It was
clear for 1 day and then started having blood again when they sent her over to ER. [facility]
Patient was likely drowsy arousable
Cardiovascular system S1-S2 appreciated
Chest clear to auscultation
Abdomen soft mild spasms
No strength in the lower extremities
# Recurrent hematuria
Chronic Fish catheter secondary to neurogenic bladder
Had a Fish catheter since July 2025. Was supposed to see Dr. Iraheta for voiding trial
Hold aspirin and Plavix
CBI started
Urology consulted
Follow hemoglobin-mild acute blood loss anemia noted
# UTI-start Zosyn with history of Pseudomonas
# Thrombocytosis-chronic. Outpatient follow-up
# Multiple ovclwvnsp-urakwxwzgz-ryxig. Continue prednisone 5 mg.Cannot tolerate other meds in the past.
# Peripheral artery disease with history of bilateral lower extremity stents. Hold aspirin and Plavix given significant bleeding ,restart aspirin as soon as we can.
# Hypertension-continue amlodipine
# Glaucoma-continue eyedrops-dorzolamide/timolol, brimonidine, latanoprost
# Cholelithiasis
# Psoriasis-on prednisone
# Ambulatory hpicikyeiqb-gmriryhfxb-updyv
# Cognitive dysfunction with short-term memory loss
# Ex-smoker
# DVT prophylaxis-SCDs
# CODE STATUS addressed with the daughter. DNR
Discussed with nursing at bedside
Discussed with daughter in detail
Time spent over 50 minutes
Part of this note was created using voice recognition system. Occasional wrong word or��sound alike� substitutions may have inadvertently occurred due to the inherent limitations of voice recognition software. If noted kindly bring it to my
attention for correction.
Anticipated Discharge: > 48 hours
Subjective/Interval History
-
Date of Service: September 05, 2025
Objective Data
-
Labs:
Laboratory Results
09/05/25 09/05/25
06:34 06:35
WBC 10.8
Hgb 10.6 L
Hct 34.2 L
Plt Count 459 H
Sodium 137
Potassium 4.2
Chloride 104
Carbon Dioxide 21 L
BUN 32 H
Creatinine 0.9
Glucose 164 H
Calcium 9.5
Total Bilirubin 0.5
AST 17
ALT 16
Alkaline Phosphatase 101
Vital Signs:
Vital Signs
Temp Pulse Resp BP Pulse Ox
98.1 F 73 18 101/63 95
09/05/25 07:15 09/05/25 13:25 09/05/25 07:15 09/05/25 13:25 09/05/25 08:30
I&O
09/04/25 09/05/25 09/06/25
06:59 06:59 05:59
Intake Total 0 / 0 100 / 100
Output Total 850 / 850 800 / 800
Balance -850 / -850 -700 / -700
[2025-09-05 15:04] VITALS: BMI 17.9
--- NOTE | 2025-09-05 15:11 | CM ---
IA completed with assistance from Dtr. IMM given in ED. Pt was sleepy during CM assessment. Nursing reports she has a short term memory deficit, Pt lives at [facility] as a LTC resident in the skilled care unit. No hx of home
O2. No insecurities identified. Confirmed PCP, RX and insurance.
She is wheelchair bound from multiple sclerosis and requires a nupur lift.
Pt continues with hematuria, IV ABX and IVF.
PCP: David Lira
RX: Family unsure of the pharmacy that is used at [facility]. [facility] in [place] is in computer. Need to confirm with [facility] if they are willing to take her back at discharge
Plan: Return to [facility] LTC/SNF
[2025-09-05 15:20] VITALS: BP 99/48
[2025-09-05] MEDS: CYANOCOBALAMIN 1000 MCG IM (15:38)
[2025-09-05] MEDS: ZOSYN 50 IV ×2 (15:38→21:53)
--- NOTE | 2025-09-05 17:32 | PTOTSP ---
ST Consult
Received and appreciate consultation. Chart reviewed. Pt admitted for lower abdominal pain and chronic shah that was attempted to be removed but unsuccessful with concerns for urinary retention. Pt's medical hx significant for MS - pt is wheelchair
bound. Pt dx with recurrent hematuria and UTI 2/2 chronic shah catheter. Per family, pt has no hx of dysphagia. Pt noted to be lethargic this morning but has improved in mentation and per RN, pt has taken PO meds without difficulty. Pt has no hx of
requiring RECRUITING ADMINISTRATOR services. Pt consumes a regular diet with thin liquids at baseline. Would recommend re-initiating pt's baseline diet and only providing pt with PO intake when fully awake/alert with general aspiration precautions. Spoke with MD - no
other concerns at this time other than pt's lethargy and hx of MS. Comprehensive RECRUITING ADMINISTRATOR evaluation deemed not warranted at this time. RECRUITING ADMINISTRATOR to sign off. Reconsult if anything changes.
[2025-09-05] MEDS: DELTASONE 5 MG PO (18:05)
[2025-09-05] MEDS: XALATAN OPHTHALMIC SOLUTION 1 DROP LEFT EYE (21:52)
[2025-09-05] MEDS: TYLENOL 1000 MG PO (21:53)
[2025-09-05 23:00] VITALS: BP 104/52
[2025-09-06] VITALS (10 sets, daily range): BP systolic 93–139; BP diastolic 45–86; BMI 19.6
[2025-09-06] MEDS: NSS 1000 IV ×2 (02:13→22:54)
[2025-09-06] MEDS: ZOSYN 50 IV ×4 (03:57→23:24)
[2025-09-06] MEDS: FEOSOL 325 MG PO (08:39)
[2025-09-06] MEDS: VITAMIN D3 (cholecalciferol) 25 MCG PO (08:39)
[2025-09-06] MEDS: CYANOCOBALAMIN 1000 MCG IM (08:40)
[2025-09-06] MEDS: ALPHAGAN 0.2% EYE DROPS 1 DROP BOTH EYES ×2 (08:40→19:55)
[2025-09-06] MEDS: MYCOSTATIN CREAM 1 APPLIC TOPICAL ×2 (08:40→19:55)
[2025-09-06] MEDS: TIMOPTIC 0.5% OPHTHALMIC SOLUTION 1 DROP BOTH EYES ×2 (08:42→19:55)
[2025-09-06] MEDS: TRUSOPT 2% OPHTHALMIC SOLUTION 1 DROP BOTH EYES ×2 (08:42→19:55)
[2025-09-06 09:26] LABS: Hematocrit 19.7 % (37.0-47.0); Hemoglobin 6.6 g/dL (12.0-16.0); Mean Corp Hgb Conc. 33.5 g/dL (33.0-37.0); Mean Corpuscular Volume 91.2 fL (81.0-99.0); Platelet Count 367 10^3/uL (130-400); Red Cell Dist. Width 13.1 % (11.5-14.5)
[2025-09-06 09:35] LABS: Blood Urea Nitrogen 38 mg/dl (7-17); Calcium 8.3 mg/dl (8.4-10.2); Carbon Dioxide 20 mmol/L (22-30); Chloride 105 mmol/L (98-107); Estimated Creatinine Clearance 20 ml/min; Glucose 152 mg/dl (70-99); Potassium 4.7 mmol/L (3.5-5.1); Sodium 134 mmol/L (135-145); eGFR 36.41
--- NOTE | 2025-09-06 11:38 | W.PN.URO.CBU ---
Today's Communication / Plan
-
ct scan continue cbi
Assessment / Plan
-
afebrile but pseudomaos uti cauti wbc up despite targeted iv zosyn will odo c t csscan transfuse 2 utis trehydrate
Diagnosis
-
Date of Service: September 06, 2025
-
Patient Diagnosis:
Post Op Day: complex uti with neurogemnic blader and hemorrhagic cystist acue blood loss anemia on anti platelet drugs
Subjective
-
feels well no colic bleeding subsiding
Objective
-
Vital Signs
Temp Pulse Resp BP Pulse Ox
98.0 F 76 16 93/56 95
09/06/25 07:25 09/06/25 07:25 09/06/25 07:25 09/06/25 07:25 09/06/25 09:00
Intake and Output
09/05/25 09/06/25 09/07/25
06:59 05:59 06:59
Intake Total 0 / 0 100 / 100
Output Total 850 / 850 2950 / 2950
Balance -850 / -850 -2850 / -2850
Intake:
Oral fluids 0 / 0
Fish intermittent irrigation 100 / 100
Output:
True Urine Output from CBI 750 / 750 2550 / 2550
True urine output from hand 100 / 100 400 / 400
irrigation
Laboratory Results
09/06/25 08:09
09/06/25 08:09
Review of Systems
-
: Bleeding
Physical Exam
-
General - well developed, well nourished, no acute distress
Chest - clear bilaterally
Abdomen - soft, non-tender, positive bowel sounds, no CVAT, no incisional pain or distention
Genitalia - normal
Rectal - normal
Skin - warm & dry with no rash
Neuro -ms
Extremities - no clubbing, no cyanosis, no edema
Incision - clean, dry
Dressing - clean, dry, intact
Counseling
-
continue present care
Care Review
Data Reviewed
Discussed with: Hospitalist and Nursing
CT Scan: Image Pers Reviewed
--- NOTE | 2025-09-06 11:51 | W.PN.HOSP.TC ---
Today's Communication/Plan
-
CVA
Blood transfusion
CT of the abdomen and pelvis
Assessment / Plan
Assessment / Plan
84-year-old female with abdominal pain. She has a history of multiple sclerosis wheelchair-bound with history of prior hematuria, neurogenic bladder and chronic Fish catheter.. Patient was admitted to [facility] 07/01/25-07/07/25 for
hematuria with clots secondary to cystitis. Urine cultures had Enterococcus and Pseudomonas treated with Zosyn. 2 days ago Fish was replaced at [place] due to decreased UOP blood in the bag. Therefore [facility] exchanged Fish catheter. It was
clear for 1 day and then started having blood again when they sent her over to ER. [facility].
Patient was likely drowsy arousable
Cardiovascular system S1-S2 appreciated
Chest clear to auscultation
Abdomen soft mild spasms
No strength in the lower extremities
Patient is more awake and alert today
# Recurrent hematuria
Chronic Fish catheter secondary to neurogenic bladder
Had a Fish catheter since July 2025. Was supposed to see Dr. Iraheta for voiding trial
Hold aspirin and Plavix
CBI to be continued
Urology consulted
# Acute kidney injury-check CT of the abdomen pelvis without contrast to rule out hydro/obstruction. IVF.
# Acute blood loss anemia-transfused 2 units of blood. Ongoing hematuria noted. Telephone but verbal consent obtained from patient's daughter Leisa. Patient is also agreeable to get transfusion.
# UTI-start Zosyn with history of Pseudomonas
# Thrombocytosis-chronic. Outpatient follow-up
# Multiple tanuswbaj-csywfhqgzx-uvits. Continue prednisone 5 mg.Couldn't tolerate other meds in the past.
# Peripheral artery disease with history of bilateral lower extremity stents. Hold aspirin and Plavix given significant bleeding ,restart aspirin as soon as we can.
# Hypertension-continue amlodipine
# Glaucoma-continue eyedrops-dorzolamide/timolol, brimonidine, latanoprost
# Cholelithiasis
# Psoriasis-on prednisone
# Ambulatory cappaivaldo-kcfvytixgk-laucx
# Cognitive dysfunction with short-term memory loss
# Ex-smoker
# DVT prophylaxis-SCDs
# CODE STATUS addressed with the daughter. DNR
Discussed with nursing at bedside
Discussed with daughter
Discussed with urology
Time spent over 50 minutes
Part of this note was created using voice recognition system. Occasional wrong word or��sound alike� substitutions may have inadvertently occurred due to the inherent limitations of voice recognition software. If noted kindly bring it to my
attention for correction.
Anticipated Discharge: > 48 hours
Subjective/Interval History
-
Date of Service: September 06, 2025
Objective Data
-
Labs:
Laboratory Results
09/06/25
08:09
WBC 17.8 H
Hgb 6.6 L* D
Hct 19.7 L*
Plt Count 367 D
Sodium 134 L
Potassium 4.7
Chloride 105
Carbon Dioxide 20 L
BUN 38 H
Creatinine 1.4 H
Glucose 152 H
Calcium 8.3 L
Vital Signs:
Vital Signs
Temp Pulse Resp BP Pulse Ox
98.0 F 76 16 93/56 95
09/06/25 07:25 09/06/25 07:25 09/06/25 07:25 09/06/25 07:25 09/06/25 09:00
I&O
09/05/25 09/06/25 09/07/25
06:59 05:59 06:59
Intake Total 0 / 0 100 / 100
Output Total 850 / 850 2950 / 2950
Balance -850 / -850 -2850 / -2850
[2025-09-06] MEDS: TYLENOL 650 MG PO (12:22)
[2025-09-06] MEDS: NSS IV (18:43)
[2025-09-06] MEDS: DELTASONE 5 MG PO (18:43)
--- NOTE | 2025-09-06 18:45 | PTCARENOTE ---
Pt received 2 units of PRBC's. Plan of care ongoing.
--- NOTE | 2025-09-06 20:21 | W.PN.UPDATE ---
Update Note
Progress Note Update
IR notified the Results of CT.
Extraperitoneal bladder rupture on CT with air.
Discussed with . Recommended to stop CBI. Continue Fish. Advised CT Cystogram now . will come in to see the patient .
Patient already on Antibiotics.
Case discussed with Nursing Davida
D/W Radiology vocational technical education director re CT
Total time spent today over 50 min
[2025-09-06 20:58] LABS: Hematocrit 32.1 % (37.0-47.0); Hemoglobin 10.5 g/dL (12.0-16.0); Mean Corp Hgb Conc. 32.7 g/dL (33.0-37.0); Mean Corpuscular Volume 88.4 fL (81.0-99.0); Platelet Count 283 10^3/uL (130-400); Red Cell Dist. Width 15.6 % (11.5-14.5)
[2025-09-06 21:12] LABS: Blood Urea Nitrogen 37 mg/dl (7-17); Calcium 8.3 mg/dl (8.4-10.2); Carbon Dioxide 20 mmol/L (22-30); Chloride 108 mmol/L (98-107); Estimated Creatinine Clearance 21 ml/min; Glucose 133 mg/dl (70-99); Potassium 4.1 mmol/L (3.5-5.1); Sodium 136 mmol/L (135-145); eGFR 39.80
--- NOTE | 2025-09-06 21:54 | W.PN.URO.CBU ---
Today's Communication / Plan
-
AHAND IRRIGATE FOLETY AFTER CT SCAN KEEP CBI GOING
Assessment / Plan
-
afebrile but pseudomaos uti cauti wbc up despite targeted iv zosyn CT SCAN WITH SMALL FLUD AND EXTRAPERITONEAL AIR SEEN WITH DEBRIS IN BLADDER HAND IRRIGATE LG VOLUME CLTS WILL REPAET CT SCAN I AND OBSERVE BALA MONTERO
NPO MAY NEED TO HAND IORRIGARE MORE CLOTS THAN ABLE AT BEDSIDE HG UP WBC AND CREATININE DOWN
Diagnosis
-
Date of Service: September 06, 2025
-
Patient Diagnosis:
Post Op Day:
Patient Diagnosis:
Post Op Day: complex uti with neurogemnic blader and hemorrhagic cystist acue blood loss anemia on anti platelet drugsBUT CREAT UP THIS AM 1.[address] SCAN ORDERED AND MIN EXTRAPERITONEAL AIR AND FLUID SEEN AND LG VOLUME CLOTS
DEBRIS IN BLADDER REPEAT TESTING AND LABS IMPROVED AND PT ASX AND NON TOXIC
Subjective
-
NO COMPLAINTS URINE CRYSTAL CLEAR AFTER IRIGATION OF CLOTS
Objective
-
Vital Signs
Temp Pulse Resp BP Pulse Ox
98.9 F 89 16 127/54 97
09/06/25 20:38 09/06/25 20:38 09/06/25 20:38 09/06/25 20:38 09/06/25 20:38
Intake and Output
09/05/25 09/06/25 09/07/25
06:59 05:59 06:59
Intake Total 0 / 0 100 / 100 500 / 500
Output Total 850 / 850 2950 / 2950 500 / 500
Balance -850 / -850 -2850 / -2850 0 / 0
Intake:
Oral fluids 0 / 0
Fish intermittent irrigation 100 / 100
Blood Product Amount Infused ( 500 / 500
mL)
Packed Rbc Leukoreduced Unit 250 / 250
[id number]
Packed Rbc Leukoreduced Unit 250 / 250
[id number]
Output:
True Urine Output from CBI 750 / 750 2550 / 2550 500 / 500
True urine output from hand 100 / 100 400 / 400
irrigation
Laboratory Results
09/06/25 21:39
09/06/25 21:39
Review of Systems
-
Abdomen/GI: No Symptoms
: No Symptoms
Physical Exam
-
General - well developed, well nourished, no acute distress
Chest - clear bilaterally NON TOXIC
Abdomen - soft, non-tender, positive bowel sounds, no CVAT, no incisional pain or distention
Genitalia - normal
Rectal - normal
Skin - warm & dry with no rash
Neuro - AOx3, no motor deficits
Extremities - no clubbing, no cyanosis, no edema
Incision - clean, dry
Dressing - clean, dry, intact
Care Review
Data Reviewed
Discussed with: Hospitalist and Nursing
CT Scan: Image Pers Reviewed
--- NOTE | 2025-09-06 22:50 | TRANSFER ---
Phone call recieved from Dr. Garza regarding patients CT from this am showing an extraperitoneal bladder rupture. Dr. Garza ordered for CBI to be stopped, and a stat cystogram. Pt placed on tele per POOLING OPERATOR orders. Dr. Obregon present at bedside
to hand irrigate and was able to remove several clots. Dr. Obregon resumed CBI after irrigation. Pt taken for stat CT and transported to IMU per orders.
[2025-09-06] MEDS: TYLENOL 1000 MG PO (23:23)
[2025-09-06] MEDS: XALATAN OPHTHALMIC SOLUTION 1 DROP LEFT EYE (23:25)
--- NOTE | 2025-09-06 23:42 | PTCARENOTE ---
Pt received after CT scan via bed. Transferred to IMU bed and placed on monitor. Pt disoriented to time, forgetful. Fish intact with CBI running. Urine currently light pink without clots. Assessment as charted.
[2025-09-07] VITALS (16 sets, daily range): BP systolic 106–149; BP diastolic 37–92; BMI 19.6
[2025-09-07] MEDS: ZOSYN 50 IV ×3 (05:06→21:15)
[2025-09-07 05:23] LABS: Hematocrit 28.7 % (37.0-47.0); Hemoglobin 9.9 g/dL (12.0-16.0)
[2025-09-07] MEDS: FEOSOL 325 MG PO (07:53)
[2025-09-07] MEDS: CYANOCOBALAMIN 1000 MCG IM (07:53)
[2025-09-07] MEDS: TRUSOPT 2% OPHTHALMIC SOLUTION 1 DROP BOTH EYES ×2 (07:53→19:51)
[2025-09-07] MEDS: VITAMIN D3 (cholecalciferol) 25 MCG PO (07:53)
[2025-09-07] MEDS: ALPHAGAN 0.2% EYE DROPS 1 DROP BOTH EYES ×2 (07:54→19:51)
[2025-09-07] MEDS: MYCOSTATIN CREAM 1 APPLIC TOPICAL ×2 (07:54→19:50)
[2025-09-07] MEDS: TIMOPTIC 0.5% OPHTHALMIC SOLUTION 1 DROP BOTH EYES ×2 (07:54→19:50)
--- NOTE | 2025-09-07 07:55 | W.PN.HOSP.TC ---
Addendum entered and electronically signed by Leatha Garza MD 09/07/25 14:05:
Seen and examined the patient. Agree with the plan formulated by the resident.. See changes in my documentation
84-year-old female with abdominal pain. She has a history of multiple sclerosis wheelchair-bound with history of prior hematuria, neurogenic bladder and chronic Fish catheter.. Patient was admitted to [facility] 07/01/25-07/07/25 for
hematuria with clots secondary to cystitis. Urine cultures had Enterococcus and Pseudomonas treated with Zosyn. 2 days ago Fish was replaced at [place] due to decreased UOP blood in the bag. Therefore residential exchanged Fish catheter. It was
clear for 1 day and then started having blood again when they sent her over to ER. She [facility] in [facility].
CT of the pelvis-acute extraperitoneal urinary bladder rupture with a moderate amount of air in the extraperitoneal space anterior to the urinary bladder and pneumatosis of the anterior urinary bladder. 1.5 mm perforation in the anterior urinary
bladder wall. No evidence of extravasation of contrast into the bladder. Fish in position. 5.4 and 1.2 into 3.4 cm clot in the urinary bladder lumen. Severe bilateral distal ureteral distention. Moderate proctitis. Cholelithiasis.
Osteoporosis. Previous OMID with BSO
Patient was likely drowsy arousable
Cardiovascular system S1-S2 appreciated
Chest clear to auscultation
Abdomen soft mild spasms
No strength in the lower extremities
Patient is more awake and alert today denies any abdominal pain
# Recurrent hematuria
Chronic Fish catheter secondary to neurogenic bladder
Had a Fish catheter since July 2025. Was supposed to see Dr. Iraheta for voiding trial
Hold aspirin and Plavix
CBI was paused yesterday but patient had a lot of clots. Hand irrigated by urology last night. CBI resumed.
Small perforation of the urinary bladder noted. Moderate-sized clot. Patient is 4 OR today to evacuate the clot
Urology following
# Pseudomonas UTI-catheter associated UTI-continue Zosyn
# Acute kidney injury-Resolved
# Acute blood loss anemia-transfused 2 units of blood. Ongoing hematuria noted.
# Thrombocytosis-chronic. Outpatient follow-up
# Multiple jdpfhkkpb-gjkycwxueb-hairg. Continue prednisone 5 mg.Couldn't tolerate other meds in the past.
# Peripheral artery disease with history of bilateral lower extremity stents. Hold aspirin and Plavix given significant bleeding ,restart aspirin as soon as we can.
# Hypertension-Hold amlodipine
# Glaucoma-continue eyedrops-dorzolamide/timolol, brimonidine, latanoprost
# Cholelithiasis
# Psoriasis-on prednisone
# Ambulatory vuotvgilnzy-sncvjsyskp-yduze
# Cognitive dysfunction with short-term memory loss
# Osteoporosis
# Ex-smoker
# DVT prophylaxis-SCDs
# CODE STATUS addressed with the daughter. DNR
Discussed with nursing at bedside
Discussed with urology
Time spent over 50 minutes
Part of this note was created using voice recognition system. Occasional wrong word or��sound alike� substitutions may have inadvertently occurred due to the inherent limitations of voice recognition software. If noted kindly bring it to my
attention for correction.
Original Note:
Today's Communication/Plan
-
OR with urology
cont iv abx
continue ivf
Assessment / Plan
Assessment / Plan
84-year-old female with abdominal pain. She has a history of multiple sclerosis wheelchair-bound with history of prior hematuria, neurogenic bladder and chronic Fish catheter.. Patient was admitted to [facility] 07/01/25-07/07/25 for
hematuria with clots secondary to cystitis. Urine cultures had Enterococcus and Pseudomonas treated with Zosyn. 2 days ago Fish was replaced at [place] due to decreased UOP blood in the bag. Therefore residential exchanged Fish catheter. It was
clear for 1 day and then started having blood again when they sent her [facility] to ER. [facility]
# Recurrent hematuria
Chronic Fish catheter secondary to neurogenic bladder
Had a Fish catheter since July 2025. Was supposed to see Dr. Iraheta for voiding trial
Hold aspirin and Plavix
CBI currently ongoing
CT pelvis with Extraperitoneal bladder rupture on CT with air
Urology following; plan for OR today
# Acute kidney injury
-improving with IVF.
# Acute blood loss anemia
-s/p 2 units of blood. Ongoing hematuria noted.
# UTI
-continue IV Zosyn
-UCX with Pseudomonas
# Thrombocytosis-chronic. Outpatient follow-up
# Multiple wzpgamnze-umiclnelyf-qwkwg. Continue prednisone 5 mg. Couldn't tolerate other meds in the past.
# Peripheral artery disease with history of bilateral lower extremity stents. Hold aspirin and Plavix given significant bleeding ,restart aspirin as soon as we can.
# Hypertension-continue amlodipine
# Glaucoma-continue eyedrops-dorzolamide/timolol, brimonidine, latanoprost
# Cholelithiasis
# Psoriasis-on prednisone
# Ambulatory ulobykkkpyj-xjztbqqahc-zndug
# Cognitive dysfunction with short-term memory loss
# Ex-smoker
# DVT prophylaxis-SCDs
# CODE STATUS addressed with the daughter. DNR
Anticipated Discharge: 24 - 48 hours
Subjective/Interval History
-
Date of Service: September 07, 2025
AFVSS. Offers no new complaints. States that she experiences knee pain if she stays in 1 position for too long
Objective Data
-
Labs:
Laboratory Results
09/06/25 09/06/25 09/07/25
20:44 21:39 05:15
WBC 15.5 H Cancelled
Hgb 10.5 L D Cancelled 9.9 L
Hct 32.1 L Cancelled 28.7 L
Plt Count 283 D Cancelled
Sodium 136 Cancelled
Potassium 4.1 Cancelled
Chloride 108 H Cancelled
Carbon Dioxide 20 L Cancelled
BUN 37 H Cancelled
Creatinine 1.3 H Cancelled
Glucose 133 H Cancelled
Calcium 8.3 L Cancelled
09/07/25 09/07/25 09/07/25
09:00 15:00 21:00
WBC
Hgb Pending Pending Pending
Hct Pending Pending Pending
Plt Count
Sodium
Potassium
Chloride
Carbon Dioxide
BUN
Creatinine
Glucose
Calcium
Vital Signs:
Vital Signs
Temp Pulse Resp BP Pulse Ox
98.2 F 69 21 111/55 94
09/07/25 03:28 09/07/25 06:00 09/07/25 06:00 09/07/25 06:00 09/07/25 06:00
I&O
09/06/25 09/07/25 09/08/25
05:59 06:59 06:59
Intake Total 100 / 100 1300 / 1300
Output Total 2950 / 2950 2400 / 2400
Balance -2850 / -2850 -1100 / -1100
Review of Systems
-
History Source: Patient
All other systems: Reviewed and negative
Physical Exam
-
General: No Apparent Distress
Respiratory: Non Labored Respirations; Negative Accessory Resp Muscle Use
Cardiac: Regular Rhythm and S1/S2
GI: Soft
Genito-urinary: Other (CBI)
Neuro: Awake and Alert
Psych: Calm
Data Reviewed
-
CT Scan: Report Reviewed by me, Discussed with Physician and Discussed with Patient
Labs: Labs Reviewed by me, Discussed with Physician and Discussed with Patient
--- NOTE | 2025-09-07 08:37 | PTCARENOTE ---
pt aao to self and place. forgetful to events. states no pain. cbi running draining pink no clots noted. pt daughter updated on pt condition and plan of care.
--- NOTE | 2025-09-07 09:55 | W.PN.URO.CBU ---
Today's Communication / Plan
-
TO OP ROOM
Assessment / Plan
-
afebrile but pseudomaos uti cauti wbc up despite targeted iv zosyn CT SCAN WITH EXTRAPERITONEAL AIR SEEN WITH DEBRIS IN BLADDER HAND IRRIGATE LG VOLUME CLOTS DID CONSENT SPOKE KARSON P[OA DESCRIBED NEED TO IRRIGATE CLOTS FROM BLADDER
PT STABLE AN CREAT DOWN IS WBC ON TARGETED IV ABS
Diagnosis
-
Date of Service: September 07, 2025
-
Patient Diagnosis:
Post Op Day:
Patient Diagnosis:hematuria with bladder perforation clot retention
Post Op Day:
Patient Diagnosis:
Post Op Day: complex uti with neurogemnic blader and hemorrhagic cystist acue blood loss anemia on anti platelet drugsBUT CREAT UP THIS AM 1.[address] SCAN ORDERED AND MIN EXTRAPERITONEAL AIR AND FLUID SEEN AND LG VOLUME CLOTS
DEBRIS IN BLADDER REPEAT TESTING AND LABS IMPROVED AND PT ASX AND NON TOXIC
Subjective
-
asx
Objective
-
Vital Signs
Temp Pulse Resp BP Pulse Ox
98.4 F 69 21 111/55 94
09/07/25 08:24 09/07/25 06:00 09/07/25 06:00 09/07/25 06:00 09/07/25 06:00
Intake and Output
09/06/25 09/07/25 09/08/25
05:59 06:59 06:59
Intake Total 100 / 100 1300 / 1300
Output Total 2950 / 2950 2400 / 2400 500 / 500
Balance -2850 / -2850 -1100 / -1100 -500 / -500
Intake:
IV fluids (Total) 700 / 700
IV piggybacks 100 / 100
Fish intermittent irrigation 100 / 100
Blood Product Amount Infused ( 500 / 500
mL)
Packed Rbc Leukoreduced Unit 250 / 250
[id number]
Packed Rbc Leukoreduced Unit 250 / 250
[id number]
Output:
True Urine Output from CBI 2550 / 2550 2400 / 2400 500 / 500
True urine output from hand 400 / 400
irrigation
Review of Systems
-
: Bleeding
Physical Exam
-
General - well developed, well nourished, no acute distress
Chest - clear bilaterally
Abdomen - soft, non-tender, positive bowel sounds, no CVAT, no incisional pain or distention
Genitalia - normal
Rectal - normal
Skin - warm & dry with no rash
Neuro - AOx3, no motor deficits
Extremities - no clubbing, no cyanosis, no edema
Incision - clean, dry
Dressing - clean, dry, intact
Care Review
Data Reviewed
Discussed with: Family
CT Scan: Image Pers Reviewed
[2025-09-07] MEDS: TYLENOL 650 MG PO (10:04)
[2025-09-07] MEDS: NSS 1000 IV ×2 (10:04→19:51)
[2025-09-07 10:40] LABS: Hematocrit 30.1 % (37.0-47.0); Hemoglobin 10.1 g/dL (12.0-16.0); Mean Corp Hgb Conc. 33.6 g/dL (33.0-37.0); Mean Corpuscular Volume 89.1 fL (81.0-99.0); Platelet Count 278 10^3/uL (130-400); Red Cell Dist. Width 16.5 % (11.5-14.5)
[2025-09-07 11:04] LABS: Blood Urea Nitrogen 25 mg/dl (7-17); Calcium 8.4 mg/dl (8.4-10.2); Carbon Dioxide 24 mmol/L (22-30); Chloride 111 mmol/L (98-107); Estimated Creatinine Clearance 34 ml/min; Glucose 87 mg/dl (70-99); Potassium 3.7 mmol/L (3.5-5.1); Sodium 139 mmol/L (135-145); eGFR > 60.00
--- NOTE | 2025-09-07 11:15 | WOUNDNOTE ---
[facility] RN note: Patient admitted with hematuria and acute urinary retention.
See H&P for complete history.
PMH: Past Medical History: Reports Other (multiple sclerosis wheelchair-bound, prior hematuria secondary to cystitis, neurogenic bladder with chronic Fish catheter, peripheral arterial disease status post bilateral lower extremity stents, ,
hypertension, glucoma)
Wound Location and type/assessment: Patient admitted with: R heel stage 3 PI, pink mixed with yellow slough, no undermining or tunnels. Daughter at bedside updated on recent care, using Santyl for wound care and offloading heel boot. Patient gets
OOB to a wheelchair, has a cushion and confirmed with daughter has an air mattress at facility. Turned with assist of nurse , patient slightly contracted. Sacrum and L heel are blanchable red.
Appetite: NPO
Pressure redistribution devices in place: ON Air mattress. Turning schedule and offload heels.
Plan: Will order Santyl to start tomorrow for R heel, today applied dry dressing. Offloading heel boot (TruVue lite) applied to R heel. Pillow under calves for L heel. Air cushion supplied and notified daughter can take upon discharge along with
offloading heel boot. Foams applied to sacrum and L heel.
Will confirm orders with hospitalist and updated nurse. Updated care plan and will follow as needed.
Note to case management of equipment requested for discharge: Continue air mattress.
Recommend follow up at wound care center upon discharge.
[2025-09-07] MEDS: ULTRAM 25 MG PO (12:20)
--- NOTE | 2025-09-07 14:34 | PTCARENOTE ---
pt sent to OR report given to or nurse. top dentures removed.
--- NOTE | 2025-09-07 15:01 | W.SUR.PREOP ---
Pre-Operative Surgical Note
-
I have examined this patient prior to the performance of the scheduled procedure.
The patient's condition is unchanged from the time of the current History and
Physical and the patient is able to undergo the scheduled procedure.
Pseudomonas cUTI
Hematuria w/ clot retention
Small extraperitoneal bladder perforation w/ air and w/o contrast extravasation
Neurogenic bladder suspected (h/o MS)
Surgical consent signed by POA (daughter) earlier today by Dr. Obregon
To OR for cysto + clot evacuation
IV abx health commissioner to OR
[2025-09-07] MEDS: ZOSYN IV (15:28)
--- NOTE | 2025-09-07 15:45 | W.IMMPOSTOP ---
Surgical Immed Post Op Note
-
Primary Surgeon: Melissa
Pre-op Diagnosis:
1. Hemorrhagic cystitis with clot retention
2. cUTI
3. Small extraperitoneal perforation of anterior bladder wall w/o contrast extravasation (CT)
4. Suspected neurogenic bladder secondary to MS
Post-op Diagnosis: Same
Procedure Performed: cystoscopy + clot evacuation
Anesthesia Type: LMA
Specimen / Cultures: None/None
Estimated Blood Loss: Negligible (150 cc organized clot burden evacuated)
Complications: None
Operative Findings:
1. Organized clot burden within posterior bladder wall and adherent to lateral chen - hand-irrigated gently w/ Gillian syringe out of bladder.
2. No active bleeding noted on final cystoscopy - significant inflammation, bullous edema, and cystitis of urothelium w/o abnormal lesions/tumors.
3. Detailed cystoscopy w/o gross evidence of perforation of anterior bladder wall.
4. Crystal-clear urine on low rate CBI drip at conclusion of procedure.
Daughter updated post-op.
Continue GENTLE (VERY LOW RATE) CBI to keep urine clear and clot-free overnight - if concerns, please contact Urology oncology navigator.
--- NOTE | 2025-09-07 17:28 | CM ---
F/U: Patient came to [facility] and now Post-Op so PT/OT need to evaluate the patient. PLAN: Home PT vs. SNF.
[2025-09-07] MEDS: DELTASONE 5 MG PO (17:45)
[2025-09-07] MEDS: XALATAN OPHTHALMIC SOLUTION 1 DROP LEFT EYE (19:51)
[2025-09-07] MEDS: TYLENOL 1000 MG PO (21:16)
[2025-09-07 21:34] LABS: Hematocrit 30.8 % (37.0-47.0); Hemoglobin 10.1 g/dL (12.0-16.0)
[2025-09-08] VITALS (9 sets, daily range): BP systolic 131–163; BP diastolic 46–78
[2025-09-08] MEDS: ZOSYN 50 IV ×3 (04:53→19:10)
--- NOTE | 2025-09-08 06:25 | PTCARENOTE ---
Pt oriented, but forgetful. CBI continued per MD orders. Pt denied new complaints throughout the night. Did c/o chronic pain, but relieved with repositioning and scheduled tylenol. Bed alarm in place for pt safety. Care ongoing.
--- NOTE | 2025-09-08 08:56 | PTCARENOTE ---
Zosyn was hung as piggy back but primary IVF was running and was never administered. Zosyn was started around 0800 and retimed by pharmacy for appropriate timing from that administration.
--- NOTE | 2025-09-08 08:59 | PTCARENOTE ---
Patient received from shift nurse manager. Patient resting comfortably in bed. AAO but a little forgetful, VSS. No events noted overnight. No complaints of pain at this time. Currently on 2L N/C due to some desaturations overnight, will wean back to
room air. Continuing ABX. No testing scheduled at this time. Possible discharge tomorrow. Call meehan in reach.
--- NOTE | 2025-09-08 09:20 | PN.CDI ---
CDI
- -
CDI:
Physician Documentation Request
Admit Date: 09/04/25 18:36
Dear Doctor,
Patient admitted for UTI.
09/07 Bundle Collector Assessment: 'Weight hx (07/02) 104lb 4.8oz, (05/22) 110lb 2oz Significant 13lb, 13.4% weight loss x 3 months...Pt meets criteria for severe protein calorie malnutrition of chronic illness with >7.5% weight loss x 3 months,
prolonged poor intake prior to admission <75% x >1month.'
Based on the above information and your assessment, which of the following most accurately represents the patient's nutritional status?
Severe protein calorie malnutrition
Other
[place] Criteria ([facility] Hospitalist 2017)
2 or more criteria must be present for either
non severe or severe malnutrition
Note that the criteria differs related to the
presence of an acute or chronic illness
Acute Illness Chronic Illness
Energy Intake Non Severe: <75% for >7 days Non Severe: <75% for >1 month
Severe: <50% for >5 days Severe: <75% for >1 month
Weight Loss Non Severe: 1-2% over 1 week Non Severe: 5% over 1 month
5% over 1 month 7.5% over 3 months
7.5% over 3 months 10% over 6 months
1 year N/A 20% over 1 year
Severe: >2% over 1 week Severe: >5% over 1 month
>5% over 1 month >7.5% over 3 months
>7.5% over 3 months >10% over 6 months
1 year N/A >20% over 1 year
Body Fat Non Severe: Mild Decrease Non Severe: Mild Loss
Severe: Moderate Decrease Severe: Severe Loss
Muscle Mass Non Severe: Mild Decrease Non Severe: Mild Loss
Severe: Moderate Decrease Severe: Severe Loss
Fluid Accumulation Non Severe: Mild Accumulation Non Severe: Mild Accumulation
Severe: Moderate to severe Severe: Moderate to severe
accumulation accumulation
Reduced Translator Deaf Strength Non Severe: N/A Non Severe: N/A
Severe: Measurably reduced Severe: Measurably reduced
Additional criteria that can be used to Determine if Mild or Moderate Malnutrition (Merck Manual 2018)
Mild Moderate Severe
Albumin gm/dl <3.0 gm/dl <2.5 gm/dl <2.0 gm/dl
Pre Albumin mg/dl <15 gm/dl <10 mg/dl <5.0 mg/dl
BMI <18.5 <17 <16
Use of terms such as suspected, likely, concern for, or probable (associated with a specific diagnosis that is being evaluated, monitored, or treated as if it exists) are acceptable and can be coded in the inpatient setting, when documented at the
time of discharge.
Thank you,
Amelia Cristobal RN, BSN
CDI Specialist
Available via [place] text
Please use your independent medical judgment in providing your response.
--- NOTE | 2025-09-08 09:24 | PN.CDI ---
CDI
- -
CDI:
Physician Documentation Request
Admit Date: 09/04/25 18:36
Dear Doctor,
Patient admitted for UTI.
09/07 Wound Care Note: 'Patient admitted with: R heel stage 3 PI, pink mixed with yellow slough, no undermining or tunnels. Daughter at bedside updated on recent care, using Santyl for wound care and offloading heel boot.'
Physician documentation of the type and location of wounds is required for compliant documentation. Based on the above clinical findings and your assessment, please provide the following in your progress note:
1. Location of the ulcer/wound, including laterality.
2. Type (etiology) of ulcer/wound:
- Diabetic ulcer
- Arterial (ischemic) ulcer
- Traumatic wound
- Venous stasis ulcer
- Pressure (decubitus) ulcer
- Non-healing surgical wound
- Other
- Unable to determine
3. For a non-pressure ulcer, please indicate the depth/severity:
- Limited to the breakdown of skin
- With fat layer exposed
- With necrosis of muscle
- With necrosis of bone
- Other
- Unable to determine
4. If a pressure ulcer, please also include the stage* of the ulcer:
- Stage 1 - Skin intact, non-blanchable redness
- Stage 2 - Partial thickness loss of dermis, includes intact or open blister
- Stage 3 - Full thickness tissue not including bone, tendon or muscle
- Stage 4 - Full thickness tissue loss, including exposed bone, tendon or muscle
- Unstageable - Full thickness loss in which the base of the ulcer is covered by slough (yellow, goodman, dnoovan, green or brown) and/or eschar (goodman, brown or black) in the wound bed.
- Unable to determine
Use of terms such as suspected, likely, concern for, or probable (associated with a specific diagnosis that is being evaluated, monitored, or treated as if it exists) are acceptable and can be coded in the inpatient setting, when documented at the
time of discharge.
Thank you,
Amelia Cristobal RN, BSN
CDI Specialist
Available via [place] text
Please use your independent medical judgment in providing your response.
*Source: National Pressure Ulcer Advisory Panel (NPUAP)
[2025-09-08] MEDS: FEOSOL 325 MG PO (09:40)
[2025-09-08] MEDS: TIMOPTIC 0.5% OPHTHALMIC SOLUTION 1 DROP BOTH EYES ×2 (09:40→19:11)
[2025-09-08] MEDS: VITAMIN D3 (cholecalciferol) 25 MCG PO (09:40)
[2025-09-08] MEDS: ALPHAGAN 0.2% EYE DROPS 1 DROP BOTH EYES ×2 (09:40→19:11)
[2025-09-08] MEDS: TRUSOPT 2% OPHTHALMIC SOLUTION 1 DROP BOTH EYES ×2 (09:40→19:11)
[2025-09-08] MEDS: CYANOCOBALAMIN 1000 MCG IM (09:41)
[2025-09-08] MEDS: MYCOSTATIN CREAM 1 APPLIC TOPICAL ×2 (09:41→19:11)
[2025-09-08] MEDS: NSS IV (09:43)
--- NOTE | 2025-09-08 10:56 | W.PN.HOSP.TC ---
Today's Communication/Plan
-
CBI is clear- Management per urology
Discontinue IV fluids
Restart amlodipine
Restart aspirin and Plavix when safe to do so from urology standpoint
Discharge planning per urology
PT OT
Transfer to telemetry
Assessment / Plan
Assessment / Plan
84-year-old female with abdominal pain. She has a history of multiple sclerosis wheelchair-bound with history of prior hematuria, neurogenic bladder and chronic Fish catheter.. Patient was admitted to [facility] 07/01/25-07/07/25 for
hematuria with clots secondary to cystitis. Urine cultures had Enterococcus and Pseudomonas treated with Zosyn. 2 days ago Fish was replaced at [place] due to decreased UOP blood in the bag. Therefore skilled nursing exchanged Fish catheter. It was
clear for 1 day and then started having blood again when they sent her over to ER. She lives in [facility].
CT of the pelvis-acute extraperitoneal urinary bladder rupture with a moderate amount of air in the extraperitoneal space anterior to the urinary bladder and pneumatosis of the anterior urinary bladder. 1.5 mm perforation in the anterior urinary
bladder wall. No evidence of extravasation of contrast into the bladder. Fish in position. 5.4 and 1.2 into 3.4 cm clot in the urinary bladder lumen. Severe bilateral distal ureteral distention. Moderate proctitis. Cholelithiasis.
Osteoporosis. Previous OMID with BSO
Patient was likely drowsy arousable
Cardiovascular system S1-S2 appreciated
Chest clear to auscultation
Abdomen soft mild spasms
No strength in the lower extremities
Patient is more awake and alert today denies any abdominal pain
# Recurrent hematuria
Chronic Fish catheter secondary to neurogenic bladder
Had a Fish catheter since July 2025. Was supposed to see Dr. Iraheta for voiding trial
Hold aspirin and Plavix, restart when OK with Urology
Small perforation of the urinary bladder noted. Moderate-sized clot.
Status post cystoscopy and clot evacuation by Dr. Torres on 09/07/2025
Urology following
CBI looks clear today
# Pseudomonas UTI-catheter associated UTI-continue Zosyn
# Acute kidney injury-Resolved
# Acute blood loss anemia-transfused 2 units of blood. Urine cleared
# Thrombocytosis-chronic. Outpatient follow-up
# Multiple yrdxokgpt-wwibrfkect-wybxk. Continue prednisone 5 mg.Couldn't tolerate other meds in the past.
# Peripheral artery disease with history of bilateral lower extremity stents. Hold aspirin and Plavix given significant bleeding ,restart aspirin as soon as we can.
# Hypertension- restart amlodipine
# Glaucoma-continue eyedrops-dorzolamide/timolol, brimonidine, latanoprost
# Cholelithiasis
# Psoriasis-on prednisone
# Ambulatory botriexboqb-hkfjxmqari-kytvq
# Cognitive dysfunction with short-term memory loss
# B 12 Def- replace IM
# Osteoporosis
# Ex-smoker
# DVT prophylaxis-SCDs
# CODE STATUS addressed with the daughter. DNR
Discussed with nursing at bedside
Part of this note was created using voice recognition system. Occasional wrong word or��sound alike� substitutions may have inadvertently occurred due to the inherent limitations of voice recognition software. If noted kindly bring it to my
attention for correction.
Anticipated Discharge: Within 24 hours
Subjective/Interval History
-
Date of Service: September 08, 2025
Objective Data
-
Labs:
Laboratory Results
09/08/25
10:38
WBC Pending
Hgb Pending
Hct Pending
Plt Count Pending
Sodium Pending
Potassium Pending
Chloride Pending
Carbon Dioxide Pending
BUN Pending
Creatinine Pending
Glucose Pending
Calcium Pending
Vital Signs:
Vital Signs
Temp Pulse Resp BP Pulse Ox
98 F 68 18 161/70 91
09/08/25 06:59 09/08/25 06:00 09/08/25 06:00 09/08/25 04:00 09/08/25 06:00
I&O
09/07/25 09/08/25 09/09/25
06:59 06:59 06:59
Intake Total 1300 / 1300 350 / 350
Output Total 2400 / 2400 1500 / 1500
Balance -1100 / -1100 -1150 / -1150
[2025-09-08 10:57] LABS: Hematocrit 31.7 % (37.0-47.0); Hemoglobin 10.7 g/dL (12.0-16.0); Mean Corp Hgb Conc. 33.8 g/dL (33.0-37.0); Mean Corpuscular Volume 87.8 fL (81.0-99.0); Platelet Count 315 10^3/uL (130-400); Red Cell Dist. Width 16.5 % (11.5-14.5)
[2025-09-08 11:27] LABS: Blood Urea Nitrogen 13 mg/dl (7-17); Calcium 8.6 mg/dl (8.4-10.2); Carbon Dioxide 21 mmol/L (22-30); Chloride 110 mmol/L (98-107); Estimated Creatinine Clearance 43 ml/min; Glucose 213 mg/dl (70-99); Potassium 4.0 mmol/L (3.5-5.1); Sodium 136 mmol/L (135-145); eGFR > 60.00
--- NOTE | 2025-09-08 11:54 | CM ---
CM reviewed chart, care ongoing.
Patient LTC at [facility], updates sent to liaison at SNF.
PT/OT ordered.
CM will continue to follow for all d/c planning needs.
Plan; Return to [facility] LTC
[facility]
Report: [phone] ext [phone]
[2025-09-08] MEDS: NORVASC 2.5 MG PO (12:06)
--- NOTE | 2025-09-08 12:17 | W.PN.UPDATE ---
Addendum entered and electronically signed by Leatha Garza MD 09/08/25 12:22:
daughter Leisa updated
Original Note:
Update Note
Progress Note Update
CBOI and if stable will discharge tomorrow stopped
Discussed with Dr. Obregon. Okay to start aspirin and Plavix started. Watch patient today if stable discharge tomorrow
--- NOTE | 2025-09-08 12:24 | W.PN.URO.CBU ---
Today's Communication / Plan
-
STOP CBI
Assessment / Plan
-
afebrile but pseudomaos uti cauti restart DAPT STOP CBI
Diagnosis
-
Date of Service: September 08, 2025
-
Patient Diagnosis:
Post Op Day:
Patient Diagnosis:
Post Op Day:
Patient Diagnosis:hematuria with bladder perforation clot retention
Post Op Day:
Patient Diagnosis:
Post Op Day: complex uti with neurogemnic blader and hemorrhagic cystist acue blood loss anemia on anti platelet drugsBUT CREAT UP THIS AM 1.[address] SCAN ORDERED AND MIN EXTRAPERITONEAL AIR AND FLUID SEEN AND LG VOLUME CLOTS
DEBRIS IN BLADDER REPEAT TESTING AND LABS IMPROVED AND PT ASX AND NON TOXIC
Subjective
-
no hematuria
Objective
-
Vital Signs
Temp Pulse Resp BP Pulse Ox
98 F 75 18 141/58 97
09/08/25 11:26 09/08/25 12:06 09/08/25 06:00 09/08/25 12:06 09/08/25 11:16
Intake and Output
09/07/25 09/08/25 09/09/25
06:59 06:59 06:59
Intake Total 1300 / 1300 350 / 350
Output Total 2400 / 2400 1500 / 1500
Balance -1100 / -1100 -1150 / -1150
Intake:
Oral fluids 300 / 300
IV fluids (Total) 700 / 700 50 / 50
normosol 50 / 50
IV piggybacks 100 / 100
Blood Product Amount Infused ( 500 / 500
mL)
Packed Rbc Leukoreduced Unit 250 / 250
[id number]
Packed Rbc Leukoreduced Unit 250 / 250
[id number]
Output:
True Urine Output from CBI 2400 / 2400 1500 / 1500
Laboratory Results
09/08/25 10:38
09/08/25 10:38
Review of Systems
-
: Difficulty Voiding
Physical Exam
-
General - well developed, well nourished, no acute distress
Chest - clear bilaterally
Abdomen - soft, non-tender, positive bowel sounds, no CVAT, no incisional pain or distention
Genitalia - normal
Rectal - normal
Skin - warm & dry with no rash
Neuro - AOx3, no motor deficits
Extremities - no clubbing, no cyanosis, no edema
Incision - clean, dry
Dressing - clean, dry, intact
Counseling
-
STOP CBI
Care Review
Data Reviewed
Discussed with: Cardiology, Internal Medicine and Nursing
[2025-09-08] MEDS: SANTYL OINTMENT 1 APPLIC TOPICAL (14:22)
[2025-09-08] MEDS: ASPIR LOW (ENTERIC COATED) 81 MG PO (14:23)
[2025-09-08] MEDS: PLAVIX 75 MG PO (14:23)
[2025-09-08] MEDS: DELTASONE 5 MG PO (18:04)
[2025-09-08] MEDS: TYLENOL 1000 MG PO (19:11)
[2025-09-08] MEDS: XALATAN OPHTHALMIC SOLUTION 1 DROP LEFT EYE (19:12)
[2025-09-09 01:38] VITALS: BP 165/78
[2025-09-09 02:00] VITALS: BP 166/75
[2025-09-09] MEDS: ZOSYN 50 IV ×3 (02:47→12:59)
[2025-09-09 05:52] LABS: Hematocrit 31.3 % (37.0-47.0); Hemoglobin 10.5 g/dL (12.0-16.0); Mean Corp Hgb Conc. 33.5 g/dL (33.0-37.0); Mean Corpuscular Volume 87.9 fL (81.0-99.0); Platelet Count 356 10^3/uL (130-400); Red Cell Dist. Width 16.4 % (11.5-14.5)
[2025-09-09 06:14] LABS: Blood Urea Nitrogen 14 mg/dl (7-17); Calcium 8.7 mg/dl (8.4-10.2); Carbon Dioxide 25 mmol/L (22-30); Chloride 108 mmol/L (98-107); Estimated Creatinine Clearance 38 ml/min; Glucose 120 mg/dl (70-99); Potassium 3.9 mmol/L (3.5-5.1); Sodium 138 mmol/L (135-145); eGFR > 60.00
[2025-09-09 06:33] VITALS: BP 163/68
[2025-09-09 08:00] VITALS: BP 182/94
[2025-09-09] MEDS: TIMOPTIC 0.5% OPHTHALMIC SOLUTION 1 DROP BOTH EYES (08:03)
[2025-09-09] MEDS: ALPHAGAN 0.2% EYE DROPS 1 DROP BOTH EYES (08:04)
[2025-09-09] MEDS: TRUSOPT 2% OPHTHALMIC SOLUTION 1 DROP BOTH EYES (08:04)
[2025-09-09] MEDS: ASPIR LOW (ENTERIC COATED) 81 MG PO (08:08)
[2025-09-09] MEDS: NORVASC 2.5 MG PO (08:08)
[2025-09-09] MEDS: VITAMIN D3 (cholecalciferol) 25 MCG PO (08:08)
[2025-09-09] MEDS: PLAVIX 75 MG PO (08:08)
[2025-09-09] MEDS: SANTYL OINTMENT 1 APPLIC TOPICAL (08:08)
[2025-09-09] MEDS: MYCOSTATIN CREAM 1 APPLIC TOPICAL (08:09)
[2025-09-09] MEDS: FEOSOL 325 MG PO (08:09)
[2025-09-09] MEDS: CYANOCOBALAMIN 1000 MCG IM (08:09)
--- NOTE | 2025-09-09 09:37 | W.PN.URO.CBU ---
Today's Communication / Plan
-
no gu intervention
Assessment / Plan
-
afebrile but pseudomaos uti cauti restart DAPT STOP CBI iv abs per hospitalist
Diagnosis
-
Date of Service: September 09, 2025
-
Patient Diagnosis:
Post Op Day:
Patient Diagnosis:
Post Op Day:
Patient Diagnosis:
Post Op Day:
Patient Diagnosis:hematuria with bladder perforation clot retention
Post Op Day:
Patient Diagnosis:
Post Op Day: complex uti with neurogemnic blader and hemorrhagic cystist acue blood loss anemia on anti platelet drugsBUT CREAT UP THIS AM 1.[address] SCAN ORDERED AND MIN EXTRAPERITONEAL AIR AND FLUID SEEN AND LG VOLUME CLOTS
DEBRIS IN BLADDER REPEAT TESTING AND LABS IMPROVED AND PT ASX AND NON TOXIC
Subjective
-
feeling baseline
Objective
-
Vital Signs
Temp Pulse Resp BP Pulse Ox
98.1 F 82 20 182/94 92
09/09/25 08:34 09/09/25 08:08 09/09/25 06:33 09/09/25 08:08 09/09/25 06:33
Intake and Output
09/08/25 09/09/25 09/10/25
06:59 06:59 06:59
Intake Total 350 / 350
Output Total 1500 / 1500 500 / 500
Balance -1150 / -1150 -500 / -500
Intake:
Oral fluids 300 / 300
IV fluids (Total) 50 / 50
normosol 50 / 50
Output:
Urine, Fish 1300 / 1300
True Urine Output from CBI 1500 / 1500 -800 / -800
Laboratory Results
09/09/25 05:27
09/09/25 05:27
Review of Systems
-
: Difficulty Voiding
Physical Exam
-
General - well developed, well nourished, no acute distress
Chest - clear bilaterally
Abdomen - soft, non-tender, positive bowel sounds, no CVAT, no incisional pain or distention
Genitalia - normal
Rectal - normal
Skin - warm & dry with no rash
Neuro - AOx3, no motor deficits
Extremities - no clubbing, no cyanosis, no edema
Incision - clean, dry
Dressing - clean, dry, intact
Counseling
-
no gu changes
Care Review
Data Reviewed
Discussed with: Nursing
[2025-09-09 10:45] VITALS: BP 164/73
--- NOTE | 2025-09-09 11:05 | PTCARENOTE ---
exchanged pt [address] shah to straight shah cath per dr barrett
--- NOTE | 2025-09-09 11:43 | W.PN.HOSP.TC ---
Today's Communication/Plan
-
Discharge
Assessment / Plan
Assessment / Plan
84-year-old female with abdominal pain. She has a history of multiple sclerosis wheelchair-bound with history of prior hematuria, neurogenic bladder and chronic Fish catheter.. Patient was admitted to [facility] 07/01/25-07/07/25 for
hematuria with clots secondary to cystitis. Urine cultures had Enterococcus and Pseudomonas treated with Zosyn. 2 days ago Fish was replaced at [place] due to decreased UOP blood in the bag. Therefore [facility] Fish catheter. It was
clear for 1 day and then started having blood again when they sent her over to ER. She lives in [facility].
CT of the pelvis-acute extraperitoneal urinary bladder rupture with a moderate amount of air in the extraperitoneal space anterior to the urinary bladder and pneumatosis of the anterior urinary bladder. 1.5 mm perforation in the anterior urinary
bladder wall. No evidence of extravasation of contrast into the bladder. Fish in position. 5.4 and 1.2 into 3.4 cm clot in the urinary bladder lumen. Severe bilateral distal ureteral distention. Moderate proctitis. Cholelithiasis.
Osteoporosis. Previous OMID with BSO
Patient was likely drowsy arousable
Cardiovascular system S1-S2 appreciated
Chest clear to auscultation
Abdomen soft mild spasms
No strength in the lower extremities
Patient is more awake and alert today denies any abdominal pain
Stage III pressure angle injury
# Recurrent hematuria
Chronic Fish catheter secondary to neurogenic bladder
Had a Fish catheter since July 2025. Was supposed to see Dr. Iraheta for voiding trial
Restarted aspirin and Plavix yesterday. Hemoglobin stable
Small perforation of the urinary bladder noted. Moderate-sized clot.
Status post cystoscopy and clot evacuation by Dr. Torres on 09/07/2025
Urology following
CBI looks clear today
# Stage III pressure injury right heel-continue wound care. This was present on admission
# Pseudomonas UTI-catheter associated UTI-continue Zosyn 1 more week for discharge. Midline to be placed
# Acute kidney injury-Resolved
# Acute blood loss anemia-transfused 2 units of blood. Urine cleared
# Thrombocytosis-chronic. Outpatient follow-up
# Multiple jxrprdmbe-iejhfnlxos-cdops. Continue prednisone 5 mg.Couldn't tolerate other meds in the past.
# Peripheral artery disease with history of bilateral lower extremity stents. Restarted aspirin and Plavix
# Hypertension- restart amlodipine
# Glaucoma-continue eyedrops-dorzolamide/timolol, brimonidine, latanoprost
# Cholelithiasis
# Psoriasis-on prednisone
# Ambulatory dadtzfztnca-rbumekrrzv-rgduw
# Cognitive dysfunction with short-term memory loss
# Severe protein calorie malnutrition-continue supplements
# B 12 Def- replace PO at discharge.
# Osteoporosis
# Ex-smoker
# DVT prophylaxis-SCDs
# CODE STATUS addressed with the daughter. DNR
Discussed with nursing at bedside
Reportedly patient's catheter was changed from three-way catheter to Fish catheter. Patient has mild pain since then. Watch and make sure pain subsides prior to discharge
Midline to be placed for Zosyn at discharge
D/W case management
More than 30 minutes spent in discharge including
Final examination of the patient
Summarizing hospital stay
Instructions for continuing care to all relevant caregivers
Preparation of discharge records, prescriptions, and referral forms
Part of this note was created using voice recognition system. Occasional wrong word or��sound alike� substitutions may have inadvertently occurred due to the inherent limitations of voice recognition software. If noted kindly bring it to my
attention for correction.
Anticipated Discharge: Today
Subjective/Interval History
-
Date of Service: September 09, 2025
Objective Data
-
Labs:
Laboratory Results
09/09/25
05:27
WBC 12.1 H
Hgb 10.5 L
Hct 31.3 L
Plt Count 356
Sodium 138
Potassium 3.9
Chloride 108 H
Carbon Dioxide 25
BUN 14
Creatinine 0.8
Glucose 120 H
Calcium 8.7
Vital Signs:
Vital Signs
Temp Pulse Resp BP Pulse Ox
98.1 F 82 20 182/94 92
09/09/25 08:34 09/09/25 08:08 09/09/25 06:33 09/09/25 08:08 09/09/25 06:33
I&O
09/08/25 09/09/25 09/10/25
06:59 06:59 06:59
Intake Total 350 / 350
Output Total 1500 / 1500 500 / 500
Balance -1150 / -1150 -500 / -500
[2025-09-09] MEDS: TYLENOL 650 MG PO (11:56)
[2025-09-09 12:00] VITALS: BP 174/67
[2025-09-09] MEDS: CITROMA 300 ML PO (12:59)
--- NOTE | 2025-09-09 13:21 | CM ---
Patient has been medically cleared for discharge back to [facility] for resumption of LTC. Ambulance transport scheduled for 2:30 pm. Daughter, [facility] admissions and Team notified.
Nurse to Nurse Report #: [phone]
Fax #: [phone]
--- NOTE | 2025-09-09 14:24 | W.DCSUMMARY ---
Addendum entered and electronically signed by Leatha Garza MD 09/21/25 17:10:
Read, reviewed, and agree. See same day progress note for additional details.
Original Note:
Documented by User: Vinod Holloway MD, Resident 09/09/25 15:07
Discharge Summary
Discharge Data
Date of Admission: 09/04/25
Date of Discharge: 09/09/25
-
Pending Results: No
Hospital Course
Discharging Physician : Vinod Holloway MD ; Leatha Garza MD
Disposition : SNF.
Primary care physician : David Lira
Principal Discharge diagnosis : Recurrent hematuria/hemorrhagic cystitis with clot retention
Pseudomonas UTI
Chronic Discharge diagnosis :
Stage III pressure injury right heel
Acute kidney injury
Acute blood loss anemia
Chronic thrombocytosis
Multiple sclerosis
Peripheral artery disease
Hypertension
Glaucoma
Psoriasis
Ambulate dysfunction
Cognitive dysfunction
B12 deficiency
Osteoporosis
Cholelithiasis
Hospital Course : 84-year-old female past medical history of multiple sclerosis wheelchair-bound, prior hematuria secondary to cystitis, neurogenic bladder with chronic Fish catheter, peripheral arterial disease status post bilateral lower
extremity stents, , hypertension, glucoma presented with lower abdominal pain started 1 day prior to arrival. Prior to that Patient was recently admitted from 07/01 to 07/07 for hematuria with clots secondary to cystitis. Urine culture grew
Enterococcus and Pseudomonas resistant to fluoroquinolones and meropenem. Patient was treated with Zosyn. Patient was seen by urology who replaced chronic Fish catheter. However the catheter was removed at the nursing facility.
Plan was made for continuous bladder irrigation and aspirin and Plavix for placed on hold due to recurrent hematuria. Urology was consulted. She was started on IV Zosyn and IV fluids. A CAT scan was also performed which shows a small perforation
with results as below.
Routine blood work showed low hemoglobin and she received 2 units of blood.
After detailed discussion with urology team plan was made for cystoscopy plus clot evacuation. Procedure was done with results as below. Medications were restarted after procedure. CBI was continued for short period and on the day of discharge
her catheter was changed. It was draining clear urine. Patient had no abdominal pain. Given that urine culture grew Pseudomonas plan was made to continue IV Zosyn for another week after discharge. Midline was placed. Her daughter Leisa was
updated in great length on the phone call. Regarding the plan. After casey saw operator arrange the transport patient was sent back to the [facility]. On the day of discharge patient's vitals remained stable. Patient offers no new complaints.
Important imaging findings : CT Abd/pelvis Wo Iv Cont:
There is extraluminal gas and stranding along the anterior aspect of the urinary bladder with mild stranding extending into the presacral soft tissues. Findings are most concerning for an extraperitoneal bladder rupture. A Fish catheter is present
within the urinary bladder. There is mildly hyperdense fluid adjacent to the catheter suspicious for blood products.
Moderate bilateral hydroureteronephrosis, similar to prior.
CT Pelvis W/wo Iv Contrast:
IMPRESSION:
1. ACUTE EXTRAPERITONEAL URINARY BLADDER RUPTURE with a moderate amount of air in the extraperitoneal space anterior to the urinary bladder and pneumatosis in the anterior urinary bladder wall.
2. Tiny 1.5 mm perforation in the anterior urinary bladder wall.
3. No CT evidence for extravasation of contrast material from the urinary bladder.
4. Fish catheter in position in the urinary bladder lumen.
5. Moderate blood clot (5.4 x 1.2 x 3.4 cm) in the urinary bladder lumen.
6. Severe bilateral distal ureteral distention.
7. Moderate proctitis.
8. Cholelithiasis.
9. Previous OMID-BSO.
10. Osteoporosis.
Cholelithiasis
Procedure findings : Procedure Performed: cystoscopy + clot evacuation 09/07/25
Operative Findings:
1. Organized clot burden within posterior bladder wall and adherent to lateral chen - hand-irrigated gently w/ Gillian syringe out of bladder.
2. No active bleeding noted on final cystoscopy - significant inflammation, bullous edema, and cystitis of urothelium w/o abnormal lesions/tumors.
3. Detailed cystoscopy w/o gross evidence of perforation of anterior bladder wall.
4. Crystal-clear urine on low rate CBI drip at conclusion of procedure.
Discharge Plan
-
Patient Disposition: Assisted/SNF
Discharge Diagnosis/Procedures: Recurrent hematuria
Pseudomonas UTI
Stage III pressure injury right heel
Acute kidney injury
Acute blood loss anemia
Chronic thrombocytosis
Multiple sclerosis
Peripheral artery disease
Hypertension
Glaucoma
Psoriasis
Ambulate dysfunction
Cognitive dysfunction
B12 deficiency
Osteoporosis
Cholelithiasis
Condition: Fair
Diet: As tolerated and Regular
Additional Diets: Ensure daily
Activity: With assistance
Additional Activity: Patient is wheelchair-bound
Driving Restrictions: No driving
Bathing Restrictions: None
Blood Work: cbc, bmp 4 days. B 12 levels 1 month
Other Services: PT
Activity Restrictions/Additional Instructions:
Wound Care Instructions
R heel: clean with saline, skin prep periwound, Santyl to base of wound(madeline thick) followed by adaptic, gauze and secure with blanche or silicone tape, change daily and prn drainage.
Offloading heel boot to R foot
Air chair cushion when sitting
Air mattress with turning schedule
Increase protein in diet
Follow up at wound care center call for an appointment.
Follow-up with podiatry or [facility] wound center
Midline should be removed once antibiotic course is completed
Referrals:
Wound Care Center [Outside]
Branden Obregon MD [Active, Urology]
David Lira MD [Family Provider, Internal Medicine] - in less than 1 week
Additional Discharge Medication Instructions: last day of Zosyn 09/16/25
Prescriptions:
New
Zosyn in dextrose (iso-osm) 3.375 gram/50 mL Piggyback
3.375 g IV Q6H Qty: 0 0RF
cyanocobalamin (vitamin B-12) 1,000 mcg capsule
1,000 mcg PO DAILY Qty: 30 0RF
Continued
prednisone 5 mg Tablet
5 mg PO QPM
latanoprost 0.005 % Drops
1 drp LEFT EYE HS
acetaminophen [Tylenol] 325 mg Tablet
650 mg PO Q4HPRN PRN (Reason: mild pain)
bisacodyl [Dulcolax (bisacodyl)] 10 mg Suppository
10 mg MS DAILYPRN PRN (Reason: if no bm by 3rd day)
nystatin 100,000 unit/gram Cream
1 applic TOPICAL BID
brimonidine 0.2 % Drops
1 drp BOTH EYES BID
dorzolamide-timolol 22.3-6.8 mg/mL Drops
1 drp BOTH EYES BID
melatonin 1 mg Tablet
1 mg PO HSPRN PRN (Reason: sleep)
cholecalciferol (vitamin D3) [Vitamin D3] 25 mcg (1,000 unit) Tablet
25 mcg PO DAILY
ferrous sulfate 325 mg (65 mg iron) Tablet
325 mg PO DAILY
acetaminophen [Tylenol Extra Strength] 500 mg tablet
1,000 mg PO HS
amlodipine [Norvasc] 2.5 mg tablet
2.5 mg PO DAILY
clopidogrel 75 mg tablet
75 mg PO DAILY
aspirin 81 mg tablet,delayed release (DR/EC)
81 mg PO DAILY
tramadol 50 mg Tablet
25 mg PO Q6HPRN PRN (Reason: moderate pain) Qty: 6 0RF
Discharge Orders:
Discharge Patient (As Directed); Ordered 09/09/25
Ordered By: Vinod Holloway
Discharge Date and Time
Discharge Date/Time: 09/09/25 14:56
Print Language: GERMAN

Documented by User: Leatha Garza MD 09/21/25 17:10
Discharge Summary
Discharge Data
Date of Admission: 09/04/25
Date of Discharge: 09/21/25
Discharge Plan
-
Patient Disposition: Assisted/SNF
Discharge Diagnosis/Procedures: Recurrent hematuria
Pseudomonas UTI
Stage III pressure injury right heel
Acute kidney injury
Acute blood loss anemia
Chronic thrombocytosis
Multiple sclerosis
Peripheral artery disease
Hypertension
Glaucoma
Psoriasis
Ambulate dysfunction
Cognitive dysfunction
B12 deficiency
Osteoporosis
Cholelithiasis
Condition: Fair
Diet: As tolerated and Regular
Additional Diets: Ensure daily
Activity: With assistance
Additional Activity: Patient is wheelchair-bound
Driving Restrictions: No driving
Bathing Restrictions: None
Blood Work: cbc, bmp 4 days. B 12 levels 1 month
Other Services: PT
Activity Restrictions/Additional Instructions:
Wound Care Instructions
R heel: clean with saline, skin prep periwound, Santyl to base of wound(madeline thick) followed by adaptic, gauze and secure with blanche or silicone tape, change daily and prn drainage.
Offloading heel boot to R foot
Air chair cushion when sitting
Air mattress with turning schedule
Increase protein in diet
Follow up at wound care center call for an appointment.
Follow-up with podiatry or [facility] wound center
Midline should be removed once antibiotic course is completed
Referrals:
Wound Care Center [Outside]
Branden Obregon MD [Active, Urology]
David Lira MD [Family Provider, Internal Medicine] - in less than 1 week
Additional Discharge Medication Instructions: last day of Zosyn 09/16/25
Prescriptions:
New
Zosyn in dextrose (iso-osm) 3.375 gram/50 mL Piggyback
3.375 g IV Q6H Qty: 0 0RF
cyanocobalamin (vitamin B-12) 1,000 mcg capsule
1,000 mcg PO DAILY Qty: 30 0RF
Continued
prednisone 5 mg Tablet
5 mg PO QPM
latanoprost 0.005 % Drops
1 drp LEFT EYE HS
acetaminophen [Tylenol] 325 mg Tablet
650 mg PO Q4HPRN PRN (Reason: mild pain)
bisacodyl [Dulcolax (bisacodyl)] 10 mg Suppository
10 mg MS DAILYPRN PRN (Reason: if no bm by 3rd day)
nystatin 100,000 unit/gram Cream
1 applic TOPICAL BID
brimonidine 0.2 % Drops
1 drp BOTH EYES BID
dorzolamide-timolol 22.3-6.8 mg/mL Drops
1 drp BOTH EYES BID
melatonin 1 mg Tablet
1 mg PO HSPRN PRN (Reason: sleep)
cholecalciferol (vitamin D3) [Vitamin D3] 25 mcg (1,000 unit) Tablet
25 mcg PO DAILY
ferrous sulfate 325 mg (65 mg iron) Tablet
325 mg PO DAILY
acetaminophen [Tylenol Extra Strength] 500 mg tablet
1,000 mg PO HS
amlodipine [Norvasc] 2.5 mg tablet
2.5 mg PO DAILY
clopidogrel 75 mg tablet
75 mg PO DAILY
aspirin 81 mg tablet,delayed release (DR/EC)
81 mg PO DAILY
tramadol 50 mg Tablet
25 mg PO Q6HPRN PRN (Reason: moderate pain) Qty: 6 0RF
Discharge Orders:
Discharge Patient (As Directed); Ordered 09/09/25
Ordered By: Vinod Holloway
Discharge Date and Time
Discharge Date/Time: 09/09/25 14:56
Print Language: GERMAN
== END 2025-09-09 14:56 | DRG 698 ==
LOC: IMU 18:36
PROVIDERS: Nurse Practitioner Family; Surgery; ADMITTING PHYSICIAN Hospitalist; ATTENDING PHYSICIAN Hospitalist; CONSULT PHYSICIAN Specialist; EMERGENCY PHYSICIAN Emergency Medicine; FAMILY PHYSICIAN Internal Medicine Geriatric Medicine
PROC: 0TCB8ZZ Extirpation of Matter from Bladder, Via Natural or Artificial Opening Endoscopic (ICD-10-PCS; 2025-09-07)
DX: T83.511A Infection and inflammatory reaction due to indwelling urethral catheter, initial encounter (principal); E43 Unspecified severe protein-calorie malnutrition; L89.613 Pressure ulcer of right heel, stage 3; N13.6 Pyonephrosis; N17.9 Acute kidney failure, unspecified; D62 Acute posthemorrhagic anemia; Z16.23 Resistance to quinolones and fluoroquinolones; S37.29XA Other injury of bladder, initial encounter; Z68.1 Body mass index [BMI] 19.9 or less, adult; D75.839 Thrombocytosis, unspecified; G35.D Multiple sclerosis, unspecified; I73.9 Peripheral vascular disease, unspecified; I10 Essential (primary) hypertension; L40.9 Psoriasis, unspecified; E53.8 Deficiency of other specified B group vitamins; M81.0 Age-related osteoporosis without current pathological fracture; K80.20 Calculus of gallbladder without cholecystitis without obstruction; B96.5 Pseudomonas (aeruginosa) (mallei) (pseudomallei) as the cause of diseases classified elsewhere; B95.2 Enterococcus as the cause of diseases classified elsewhere; N32.89 Other specified disorders of bladder; K62.89 Other specified diseases of anus and rectum; N31.9 Neuromuscular dysfunction of bladder, unspecified; R33.8 Other retention of urine; Z74.01 Bed confinement status; Z99.3 Dependence on wheelchair; Z87.440 Personal history of urinary (tract) infections; Z88.2 Allergy status to sulfonamides
CPT/HCPCS: 51702; 51798; 72194; 74176; 80048; 80053; 81003; 81015; 82607; 82728; 83540; 83550; 85014; 85018; 85025; 85027; 86850; 86900; 86901; 86920; 87070; 87077; 87086; 87186; 99284; P9016; Q9967

== ENCOUNTER → 2025-10-05 14:32 | Outpatient (REF) | payer MEDICARE, OTHER, SELFPAY | LOC: RAD 14:32 | PROVIDERS: ATTENDING PHYSICIAN Registered Nurse; FAMILY PHYSICIAN Internal Medicine Geriatric Medicine | DX: I73.9 Peripheral vascular disease, unspecified (principal) | CPT/HCPCS: 93922; 93925 ==